=== PATIENT | male | born 1945 | race Caucasian/White ===

== ENCOUNTER → 2024-03-06 09:10 | Outpatient (REF) | payer OTHER, SELFPAY ==
[2024-03-06 10:04] LABS: % Basophils 1.2 % (0-2); % Eosinophils 7.2 % (0-6); % Immature Granulocytes 0.4 % (0-0.5); % Lymphocytes 28.3 % (20.5-51.1); % Monocytes 10.9 % (1.7-9.3); Absolute Basophils 0.1 10^3/uL (0-0.2); Absolute Eosinophils 0.4 10^3/uL (0-0.7); Absolute Lymphocytes 1.5 10^3/uL (1.2-3.4); Absolute Monocytes 0.6 10^3/uL (0.1-0.6); Absolute Neutrophils 2.7 10^3/uL (1.4-6.5); Hematocrit 36.8 % (39.0-52.0); Hemoglobin 12.5 g/dL (13.0-18.0); Mean Corpuscular Hgb 31.3 pg (27.0-31.0); Mean Corpuscular Volume 92.2 fL (80.0-94.0); Mean Platelet Volume 9.2 fL (7.4-10.4); Nucleated Red Blood Cells % 0 % (-); Platelet Count 201 10^3/uL (130-400); Red Blood Cell Count 3.99 10^6/uL (4.70-6.10); Red Cell Dist. Width 12.7 % (11.5-14.5); White Blood Cell Count 5.1 10^3/uL (4.8-10.8)
[2024-03-06 10:39] LABS: Urine Albumin Negative (Neg - Trace); Urine Bilirubin Negative (Negative); Urine Character Clear (Clear); Urine Color Straw; Urine Glucose Negative (Negative); Urine Ketone Negative (Negative); Urine Leukocyte Negative (Negative); Urine Nitrite Negative (Negative); Urine Occult Blood Negative (Negative); Urine Urobilinogen Negative (Neg - 1+)
[2024-03-06 11:06] LABS: ALT (SGPT) 13 U/L (0-50); AST (SGOT) 25 U/L (17-59); Albumin 4.1 g/dl (3.5-5.0); Alkaline Phosphatase 70 U/L (38-126); Blood Urea Nitrogen 18 mg/dl (9-20); Calcium 9.6 mg/dl (8.4-10.2); Carbon Dioxide 28 mmol/L (22-30); Chloride 102 mmol/L (98-107); Glucose 95 mg/dl (70-99); HDL Cholesterol 43 mg/dl; Iron 116 ug/dl (49-181); LDL Cholesterol, Calculated 120 mg/dl; Percent Saturation 33 % (20-50); Potassium 4.5 mmol/L (3.5-5.1); Sodium 136 mmol/L (135-145); Total Cholesterol 195 mg/dl (50-199); Total Iron Binding Capacity 348 ug/dl (261-462); Total Protein 6.3 g/dl (6.3-8.2); Triglyceride 164 mg/dl (10-149); Very Low Density Lipoprotein 32 mg/dl (0-30); eGFR > 60.00
[2024-03-06 11:10] LABS: Ferritin 25.1 ng/ml (17.9-464.0)
[2024-03-07 22:37] LABS: PSA Total 0.6 ng/mL (0.0-4.0)
== END ==
LOC: REG 09:10
PROVIDERS: ATTENDING PHYSICIAN Family Medicine
DX: N40.1 Benign prostatic hyperplasia with lower urinary tract symptoms (principal); Z80.42 Family history of malignant neoplasm of prostate; R79.0 Abnormal level of blood mineral; I10 Essential (primary) hypertension; E03.9 Hypothyroidism, unspecified
CPT/HCPCS: 36415; 80053; 80061; 81003; 82728; 83540; 83550; 84153; 84154; 85025

== ENCOUNTER → 2024-04-20 09:32 | Outpatient (REF) | payer OTHER, SELFPAY | LOC: REG 09:32 | PROVIDERS: ATTENDING PHYSICIAN Psychiatry & Neurology Neurology; FAMILY PHYSICIAN Family Medicine | DX: R56.9 Unspecified convulsions (principal) | CPT/HCPCS: 36415; 80175 ==

== ENCOUNTER → 2024-05-09 | Outpatient (REF) | payer OTHER, SELFPAY | LOC: DHSLP | PROVIDERS: ATTENDING PHYSICIAN Internal Medicine Critical Care Medicine; FAMILY PHYSICIAN Family Medicine | DX: G47.33 Obstructive sleep apnea (adult) (pediatric) (principal) | CPT/HCPCS: 95806 ==

== ENCOUNTER 2024-06-07 10:53 | Emergency (ER) | payer OTHER, SELFPAY ==
[2024-06-07] VITALS (13 sets, daily range): BP systolic 71–114; BP diastolic 44–66; BMI 29.3
--- NOTE | 2024-06-07 11:50 | ED.GENMED ---
History of Present Illness
<Nancy Hahn PA-C - Last Filed: 06/07/24 16:21>
General
Chief Complaint: Chest Pain
Source: patient
Exam Limitations: none
Time Seen by Provider: 06/07/24 11:49
Nursing documentation reviewed up to this point in time: agreed with
History of Present Illness
History of Present Illness:
This is a 78-year-old male with a past medical history of asthma, COPD, hypertension, hyperlipidemia presenting emergency department today with concerns of right-sided chest pain and shortness of breath that started around 5 AM this morning.
Patient reports that he has gotten pain similar to this in the past that is gone away on its own. Patient states that he also feels pain in his shoulder. Patient states that the pain is worse with movement. Patient states that he feels worsening
pain he takes a deep breath. Patient also notes some coughing and sore throat recently as well. Patient denies any dizziness, lightheadedness, syncopal episodes. Patient states that he is no prior cardiac history, has never had an abnormal heart
rhythm or has recorded tach. Patient states he is never seen a inspector eyeglass before. Patient does not take any blood thinners. Patient denies any swelling or pain in his legs.
Past History
<Nancy Hahn PA-C - Last Filed: 06/07/24 16:21>
Past History
ED Past Medical History: Asthma and COPD
Social History
Tobacco: Former smoker
Review of Systems
<Nancy Hahn PA-C - Last Filed: 06/07/24 16:21>
Review of Systems
All Other Systems: ROS reviewed and negative except as documented in HPI and ROS
Phy Exam
<Nancy Hahn PA-C - Last Filed: 06/07/24 16:21>
Physical Exam
Physical Exam:
General: Patient is well appearing and in no acute distress; non-toxic
Skin: Warm and dry, no rashes or lesions
Head: Normocephalic, atraumatic
Eyes: Sclera non-icteric. EOMs intact.
Cardiac: Regular rate and rhythm, no murmurs
Peripheral Vascular: No lower extremity swelling or edema
Pulm: Normal respiratory effort, scattered end expiratory wheezes
Abdomen: No abdominal tenderness to palpation
Musculoskeletal: Tenderness to palpation of the right external chest wall. Shoulder pain and chest pain with passive range of motion of right shoulder.
Neuro: CN II-XII intact, no focal neurologic deficits.
Psychiatric: Appropriate mood and affect.
Scores
<Nancy Hahn PA-C - Last Filed: 06/07/24 16:21>
Heart Score for Chest Pain Patients
STEMI patient?: No
History: Slightly or Non-Suspicious
ECG: Normal
Age: >/= 65 years
Risk Factors: 1 or 2 Risk Factors
Troponin: </= Normal Limit
Heart Score for Chest Pain Patients: 3
Heart Score Risk: 2.5% MACE over next 6 weeks
PE Wells Score
Symptoms of DVT: No
No alternative diagnosis better explains the illness: No
Tachycardia with pulse > 100: No
Immobilization (>=3 days) or surgery within previous 4 weeks: No
Prior history of DVT or pulmonary embolism: No
Presence of hemoptysis: No
Presence of malignancy: No
Pulmonary Embolism Risk Score: 0
Probability of PE: Pt is low risk
<Tayo Medel DO - Last Filed: 06/07/24 15:31>
PE Wells Score
Pulmonary Embolism Risk Score: 0
Probability of PE: Pt is low risk
Course
<MARYAN Santana Last Filed: 06/07/24 16:21>
Orders/Labs/Results
Orders:
Orders
06/07/24 10:54
EKG [Electrocardiogram (*1)] Urgent
Reason for Study: Chest Pain
06/07/24 10:55
EKG- Treatment ONCE
06/07/24 11:52
IV Insert/Care/Rem.- Treatment PRN
06/07/24 12:03
Comprehensive Metabolic Panel Urgent
CR Chest - 2 Views Urgent
Comment:
Reason For Exam: right sided chest pain, shortness of breath
06/07/24 12:04
Complete Blood Count/With Diff Urgent
Troponin I Urgent
06/07/24 13:17
EKG- Treatment ONCE
06/07/24 13:40
Acetaminophen [Tylenol] 1,000 mg PO NOW STA
Ipratropium/Albuterol Sulfate [Duoneb] 3 ml INH R NOW STA
06/07/24 14:00
Aspirin 325 mg PO NOW STA
06/07/24 14:50
Electrocardiogram (*1) Urgent
Reason for Study: Chest Pain
06/07/24 15:27
Troponin I Urgent
Abnormal Lab Results
06/07/24 06/07/24
12:03 12:04
RBC 3.99 L 10^6/uL
(4.70-6.10)
Hgb 12.4 L g/dL
(13.0-18.0)
Hct 36.6 L %
(39.0-52.0)
MCH 31.1 H pg
(27.0-31.0)
Absolute Monos (auto) 0.9 H 10^3/uL
(0.1-0.6)
Lymphocytes % 14.7 L %
(20.5-51.1)
Monocytes % 10.4 H %
(1.7-9.3)
BUN 28 H mg/dl
(9-20)
Total Protein 6.2 L g/dl
(6.3-8.2)
06/07/24 12:04
06/07/24 12:03
Vital Signs
Initial and Last Documented VS:
Initial Vital Signs
Temp Pulse BP Pulse Ox
97.6 F 74 103/58 95
06/07/24 11:02 06/07/24 11:02 06/07/24 11:02 06/07/24 11:02
Last Documented Vital Signs
Temp Pulse Resp BP Pulse Ox
97.6 F 82 23 114/66 93
06/07/24 11:02 06/07/24 15:00 06/07/24 15:00 06/07/24 14:30 06/07/24 14:01
<Tayo Medel, DO - Last Filed: 06/07/24 15:31>
Orders/Labs/Results
Orders:
Orders
06/07/24 10:54
EKG [Electrocardiogram (*1)] Urgent
Reason for Study: Chest Pain
06/07/24 10:55
EKG- Treatment ONCE
06/07/24 11:52
IV Insert/Care/Rem.- Treatment PRN
06/07/24 12:03
Comprehensive Metabolic Panel Urgent
CR Chest - 2 Views Urgent
Comment:
Reason For Exam: right sided chest pain, shortness of breath
06/07/24 12:04
Complete Blood Count/With Diff Urgent
Troponin I Urgent
06/07/24 13:17
EKG- Treatment ONCE
06/07/24 13:40
Acetaminophen [Tylenol] 1,000 mg PO NOW STA
Ipratropium/Albuterol Sulfate [Duoneb] 3 ml INH R NOW STA
06/07/24 14:00
Aspirin 325 mg PO NOW STA
06/07/24 14:50
Electrocardiogram (*1) Urgent
Reason for Study: Chest Pain
06/07/24 15:27
Troponin I Urgent
Abnormal Lab Results
06/07/24 06/07/24
12:03 12:04
RBC 3.99 L 10^6/uL
(4.70-6.10)
Hgb 12.4 L g/dL
(13.0-18.0)
Hct 36.6 L %
(39.0-52.0)
MCH 31.1 H pg
(27.0-31.0)
Absolute Monos (auto) 0.9 H 10^3/uL
(0.1-0.6)
Lymphocytes % 14.7 L %
(20.5-51.1)
Monocytes % 10.4 H %
(1.7-9.3)
BUN 28 H mg/dl
(9-20)
Total Protein 6.2 L g/dl
(6.3-8.2)
06/07/24 12:04
06/07/24 12:03
Vital Signs
Initial and Last Documented VS:
Initial Vital Signs
Temp Pulse BP Pulse Ox
97.6 F 74 103/58 95
06/07/24 11:02 06/07/24 11:02 06/07/24 11:02 06/07/24 11:02
Last Documented Vital Signs
Temp Pulse Resp BP Pulse Ox
97.6 F 82 23 114/66 93
06/07/24 11:02 06/07/24 15:00 06/07/24 15:00 06/07/24 14:30 06/07/24 14:01
Melonielt;Nancy Hahn PA-C - Last Filed: 06/07/24 16:21>
MDM/Problems Addressed
Differential Diagnosis Includes:
ddx include emphysema exacerbation, upper respiratory tract infection, musculoskeletal strain/sprain, pneumothorax, ACS
MDM/Problems Addressed:
Chest pain, SOB:
This is a 78-year-old male with a past medical history of asthma, COPD, hypertension, hyperlipidemia presenting emergency department today with concerns of right-sided chest pain and shortness of breath that started around 5 AM this morning.
Patient reports that he has gotten pain similar to this in the past that is gone away on its own. Patient states that he also feels pain in his shoulder. Patient states that the pain is worse with movement. Patient also notes some coughing and
sore throat as well. Patient is well appearing. Has some scattered wheezing on exam. CXR is negative for any pneumonia, any acute cardiopulmonary abnormality. CBC and CMP unremarkable. Patient was giving duoneb, aspirin, tylenol with minimal
improvement in his symptoms. Repeat troponin initiated which remained undetectable. Few minutes after repeat troponin resulted, patient noted an improvement of his symptoms without additional intervention. Suspect musculoskeletal etiology
considering pain is much worse with movement. Patient stable for discharge to follow-up with his primary care provider.
Chronic conditions affecting care:
COPD, hypothyroidism, HTN, HLP, GERD
<Nancy Hahn PA-C - Last Filed: 06/07/24 16:21>
*Pulse Oximetry
Patient hypoxic: no
*Critical Care Note
Total Time (30-74mins, 75-104mins- exclusive of procedures): Not Applicable
Data Reviewed
Review of Other/Old Records Reveals: Records (reviewed ER physician documentation 11/15/23)
Source: patient and records
<Nancy Hahn PA-C - Last Filed: 06/07/24 16:21>
Update Note
Update Note:
4:15 pm: Updated patient on Troponin. Patient states that he now does feel better without additional intervention
ED Attending Note
<Nancy Hahn PA-C - Last Filed: 06/07/24 16:21>
-
Portions of this chart may have been created with voice recognition software.� Occasional wrong word or��sound alike� substitutions may have occurred due to the inherent limitations of voice recognition software.
<Tayo Medel, DO - Last Filed: 06/07/24 15:31>
ED Attending Note
Patient seen and examined by attending physician: Yes
I performed a history and physical exam of patient and discussed management with resident, I reviewed resident's note and agree with documented findings and plan of care.: Yes
ED Attending Note:
I have reviewed and agree with history and treatment plan by Nancy Hahn. My exam revealed 78-year-old male with chest wall tenderness, mild decreased breath sounds in upper lungs. Suspect COPD and chest wall pain. Doubt ACS or PE.
Discharge Plan
Departure
Patient Disposition: Home (Routine Discharge)
Date of Disposition: 06/07/24
Time of Disposition: 16:06
Patient with high blood pressure during this ER visit?: No
Condition: Good
Discharge Problem:
Right shoulder pain, Chest pain
Instructions: Shoulder Pain ED, Chest Pain
Prescriptions:
No Action
multivitamin [Multi-Day] 1 EACH tablet
1 ea PO DAILY
ascorbic acid (vitamin C) [Vitamin C] 1,000 MG tablet
1,000 mg PO DAILY
aspirin 325 MG tablet
325 mg PO DAILY
sertraline 100 MG tablet
150 mg PO DAILY
hydrocodone-acetaminophen 1 EACH tablet
1 ea PO TID
levothyroxine 25 MCG tablet
25 mcg PO DAILY
temazepam 15 MG capsule
15 mg PO HS PRN (Reason: sleep)
fluticasone propion-salmeterol [Advair Diskus] 1 DISK blister with device
1 puff inhalation DAILY
gabapentin 300 MG capsule
600 mg PO TID
albuterol sulfate 1 PUFF HFA aerosol inhaler
1 puff inhalation R Q4HPRN PRN (Reason: sob)
lamotrigine 100 MG tablet
200 mg PO HS
lamotrigine 100 MG tablet
100 mg PO DAILY
cholecalciferol (vitamin D3) [Vitamin D3] 1,000 UNIT capsule
1,000 unit PO DAILY
Vitamin E
400 units PO DAILY
lansoprazole [Prevacid] 15 MG capsule,delayed release(DR/EC)
15 mg PO DAILY
levofloxacin 500 MG tablet
500 mg PO DAILY Qty: 5 0RF
Rx Instructions:
Take for 5 days
guaifenesin [Mucus Relief ER] 600 MG tablet extended release 12hr
600 mg PO Q12 0RF
Rx Instructions:
Take for one week then stop
prednisone 10 MG tablet
10 mg PO .TAPER Qty: 20 0RF
Rx Instructions:
Take 40mg daily x2 days, 30mg daily x 2 days, 20mg daily x 2 days, 10mg daily x 2 days.
ipratropium-albuterol 3 ML solution for nebulization
3 ml inhalation Q6HPRN PRN (Reason: shortness of breath or wheeze) Qty: 30 0RF
cephalexin 500 mg capsule
500 mg PO QID 5 Days Qty: 20 0RF
Referrals:
UNKNOWN - PT DOES,NOT KNOW [Family Provider] -
Activity Restrictions/Additional Instructions:
Please return emergency department should you experience any acute worsening or symptoms, worsening shortness of breath, back pain, swelling in your legs, palpitations, weakness, fevers or chills, abdominal pain, nausea, vomiting, any signs or
symptoms concerning to you.
Please follow-up with your primary care provider in 1 week for reassessment.
Interventions
Interventions:
*Risk Screen - Suicide Last Done: 06/07/24 11:41
*General Assessment Last Done: 06/07/24 11:41
*Neglect/Abuse Screening Last Done: 06/07/24 11:41
ED- Cardiac Assessment Last Done: 06/07/24 12:43
Discharge Date and Time
Print Language: THAI
[2024-06-07 12:21] LABS: % Basophils 0.6 % (0-2); % Immature Granulocytes 0.4 % (0-0.5); % Lymphocytes 14.7 % (20.5-51.1); % Monocytes 10.4 % (1.7-9.3); % Neutrophils 67.9 % (42.2-75.2); Absolute Basophils 0.1 10^3/uL (0-0.2); Absolute Eosinophils 0.5 10^3/uL (0-0.7); Absolute Lymphocytes 1.2 10^3/uL (1.2-3.4); Absolute Monocytes 0.9 10^3/uL (0.1-0.6); Absolute Neutrophils 5.5 10^3/uL (1.4-6.5); Hematocrit 36.6 % (39.0-52.0); Hemoglobin 12.4 g/dL (13.0-18.0); Mean Corp Hgb Conc. 33.9 g/dL (33.0-37.0); Mean Corpuscular Hgb 31.1 pg (27.0-31.0); Mean Corpuscular Volume 91.7 fL (80.0-94.0); Mean Platelet Volume 9.5 fL (7.4-10.4); Nucleated Red Blood Cells % 0 % (-); Platelet Count 176 10^3/uL (130-400); Red Blood Cell Count 3.99 10^6/uL (4.70-6.10); Red Cell Dist. Width 12.3 % (11.5-14.5); White Blood Cell Count 8.2 10^3/uL (4.8-10.8)
[2024-06-07 12:33] LABS: ALT (SGPT) 12 U/L (0-50); AST (SGOT) 24 U/L (17-59); Albumin 4.1 g/dl (3.5-5.0); Alkaline Phosphatase 70 U/L (38-126); Blood Urea Nitrogen 28 mg/dl (9-20); Calcium 9.1 mg/dl (8.4-10.2); Carbon Dioxide 24 mmol/L (22-30); Chloride 104 mmol/L (98-107); Estimated Creatinine Clearance 59 ml/min; Glucose 97 mg/dl (70-99); Potassium 4.3 mmol/L (3.5-5.1); Sodium 137 mmol/L (135-145); Total Bilirubin 0.7 mg/dl (0.2-1.3); Total Protein 6.2 g/dl (6.3-8.2); eGFR > 60.00
[2024-06-07 12:44] LABS: Troponin I < 0.012 ng/ml
[2024-06-07] MEDS: TYLENOL 1000 MG PO (14:08)
[2024-06-07] MEDS: ASPIRIN 325 MG PO (14:08)
[2024-06-07] MEDS: DUONEB 3 ML INH (14:12)
[2024-06-07 16:02] LABS: Troponin I < 0.012 ng/ml
== END 2024-06-07 16:28 | disposition home or self-care (01) ==
LOC: EMR 10:53
PROVIDERS: Physician Assistant; EMERGENCY PHYSICIAN Emergency Medicine
DX: M25.511 Pain in right shoulder (principal); R07.89 Other chest pain; J44.89 Other specified chronic obstructive pulmonary disease; I10 Essential (primary) hypertension; E78.5 Hyperlipidemia, unspecified; Z87.891 Personal history of nicotine dependence; E03.9 Hypothyroidism, unspecified
CPT/HCPCS: 99285; 94640; 71046; 80053; 84484; 85025; 93005

== ENCOUNTER → 2024-07-17 09:18 | Outpatient (REF) | payer OTHER, SELFPAY ==
[2024-07-17 09:57] LABS: % Basophils 0.9 % (0-2); % Immature Granulocytes 0.2 % (0-0.5); % Lymphocytes 35.6 % (20.5-51.1); % Neutrophils 44.3 % (42.2-75.2); Absolute Basophils 0.1 10^3/uL (0-0.2); Absolute Eosinophils 0.4 10^3/uL (0-0.7); Absolute Lymphocytes 1.9 10^3/uL (1.2-3.4); Absolute Monocytes 0.6 10^3/uL (0.1-0.6); Absolute Neutrophils 2.3 10^3/uL (1.4-6.5); Hematocrit 36.7 % (39.0-52.0); Hemoglobin 12.7 g/dL (13.0-18.0); Mean Corp Hgb Conc. 34.6 g/dL (33.0-37.0); Mean Corpuscular Hgb 31.2 pg (27.0-31.0); Mean Corpuscular Volume 90.2 fL (80.0-94.0); Mean Platelet Volume 9.5 fL (7.4-10.4); Nucleated Red Blood Cells % 0 % (-); Platelet Count 176 10^3/uL (130-400); Red Blood Cell Count 4.07 10^6/uL (4.70-6.10); Red Cell Dist. Width 12.8 % (11.5-14.5); White Blood Cell Count 5.3 10^3/uL (4.8-10.8)
[2024-07-17 10:28] LABS: ALT (SGPT) 12 U/L (0-50); AST (SGOT) 29 U/L (17-59); Albumin 4.1 g/dl (3.5-5.0); Alkaline Phosphatase 68 U/L (38-126); Blood Urea Nitrogen 20 mg/dl (9-20); Calcium 9.4 mg/dl (8.4-10.2); Carbon Dioxide 25 mmol/L (22-30); Chloride 105 mmol/L (98-107); Glucose 91 mg/dl (70-99); Potassium 4.5 mmol/L (3.5-5.1); Sodium 140 mmol/L (135-145); Total Bilirubin 1.1 mg/dl (0.2-1.3); Total Protein 6.3 g/dl (6.3-8.2); eGFR > 60.00
[2024-07-20 00:21] LABS: Lamotrigine (Lamictal) 9.2 ug/mL (3.0-15.0)
== END ==
LOC: REG 09:18
PROVIDERS: ATTENDING PHYSICIAN Psychiatry & Neurology Neurology; FAMILY PHYSICIAN Family Medicine
DX: G40.309 Generalized idiopathic epilepsy and epileptic syndromes, not intractable, without status epilepticus (principal)
CPT/HCPCS: 36415; 80053; 80175; 85025

== ENCOUNTER 2024-11-02 12:07 | Inpatient (IN) | payer OTHER, SELFPAY ==
[2024-11-01] VITALS (9 sets, daily range): BP systolic 132–180; BP diastolic 70–103; BMI 30.5
--- NOTE | 2024-11-01 11:00 | ED.GENMED ---
History of Present Illness
<Nancy Hahn PA-C - Last Filed: 11/01/24 13:50>
General
Chief Complaint: Breathing Problem
Source: patient
Exam Limitations: none
Time Seen by Provider: 11/01/24 10:54
Nursing documentation reviewed up to this point in time: agreed with
History of Present Illness
History of Present Illness:
79 y/o male with pmh of charcot onur tooth, seizure disorder, asthma, COPD, HTN, CAD presents emergency department today with concerns of shortness of breath. He states that he is having shortness of breath for the past 3 days. His history is
limited because of how short of breath he is, he is significant conversational dyspnea. reports that he is also had intermittent chills as well as sputum production if he is able to move air and cough up sputum. He has had no hemoptysis. He
has no chest pain. He denies abdominal pain, nausea or vomiting. This has happened to him in the past many years ago. He does not wear oxygen at home but at one time, his primary care provider did suggest oxygen however his insurance did not
cover it. He denies any lower extremity swelling as well.
Past History
<Nancy Hahn PA-C - Last Filed: 11/01/24 13:50>
Past History
ED Past Medical History: Asthma and COPD
Social History
Tobacco: Former smoker
Review of Systems
<Nancy Hahn PA-C - Last Filed: 11/01/24 13:50>
Review of Systems
All Other Systems: ROS reviewed and negative except as documented in HPI and ROS
Phy Exam
<Nancy Hahn PA-C - Last Filed: 11/01/24 13:50>
Physical Exam
Physical Exam:
General: Patient is in moderate respiratory distress
Skin: Warm and dry, no rashes or lesions
Head: Normocephalic, atraumatic
Eyes: Sclera non-icteric. EOMs intact.
Cardiac: Regular rate and rhythm, no murmur
Peripheral Vascular: No lower extremity swelling or edema
Pulm: Tachypnea, conversational dyspnea, diffuse wheezing
Neuro: CN II-XII intact, no focal neurologic deficits.
Psychiatric: Appropriate mood and affect.
Scores
<MARYAN Santana Last Filed: 11/01/24 13:50>
Heart Failure Risk
Heart Failure Risk Score: Yes
History of Stroke or TIA: No
History of intubation for respiratory distress: No
Heart rate on ED arrival >/= 110: No
SaO2 <90% on arrival on room air: Yes
HR >/=110 during 3min walk test (or too ill to perform test): No (unable to be performed)
ECG has acute ischemic changes: No
Urea >/=12mmol/L (BUN 33.6mg/dL): No
Serum CO2>/=35mmol/L: No
Troponin I or T elevated to [place] Level (0.4mg/dL): No
NT-proBNP >/=5,000ng/L (5,000pg/ml): No
HF Risk Score: 1
Admission Status: MEDIUM RISK 5.1% Consider observation or discharge to home with homecare & f/u visit to PCP/[facility], or SNF for treatment
Sepsis
<MARYAN Santana Last Filed: 11/01/24 13:50>
Sepsis Screening
Sepsis Assessment: Sepsis Ruled Out
Sepsis Screen
Sepsis Screen: Sepsis Ruled Out
Date: 11/01/24
Time: 13:50
Course
<MARYAN Santana Last Filed: 11/01/24 13:50>
Orders/Labs/Results
Orders:
Orders
11/01/24 10:07
Electrocardiogram (*1) Urgent
Reason for Study: Chest Pain
EKG- Treatment ONCE
11/01/24 11:14
Dexamethasone Sod Phosphate [Decadron] 10 mg IV NOW STA
Ipratropium/Albuterol Sulfate [Duoneb] 3 ml INH R NOW STA
11/01/24 11:15
CR Chest - 2 Views Urgent
Comment:
Reason For Exam: shortness of breath
11/01/24 11:26
Basic Metabolic Panel Urgent
Complete Blood Count/With Diff Urgent
NT-proBNP Urgent
Troponin I Urgent
11/01/24 11:38
Ipratropium/Albuterol Sulfate [Duoneb] 3 ml INH R NOW STA
11/01/24 11:42
Ipratropium/Albuterol Sulfate [Duoneb] 3 ml INH R NOW STA
11/01/24 12:59
Admit/Transfer Patient As Directed
Co-Sign Provider:
Level of Care: Observation services
Assign to:: Telemetry
Physician / Group: renan
Diagnosis: copd exacerbation
Reason for Telemetry: Arrhythmia
Date to Stop Telemetry: 11/04/24
Time to Stop Telemetry: 11:00
Code Status As Directed
Resuscitation Status: Full Code
PRN Pain Medication Management As Directed
May give lesser potent ordered pain med per pt: Yes
preference::
Protocol:: Medication orders for pain may be administered in a
manner that supports deferring to patient preference
when the pt is:
- Requesting an ordered lesser potent pain medication.
Least to most potent pain medications are defined
as: acetaminophen < NSAID < tramadol < opioids
(morphine, oxycodone, hydromorphone).
- Requesting a lesser dose of the same medication IF
ORDERED.
- Requesting a less intrusive route of administration
if both routes are prescribed by the provider (PO <
IV).
11/01/24 13:04
COVID-19 Antigen Urgent
Source: Nasal Swab
Influenza A+B Rapid Molecular Urgent
VIRAJ Source: Nasal Swab
Specimen Description:
11/04/24 11:00
DC Protocol for Telemetry ONCE
Abnormal Lab Results
11/01/24
11:26
RBC 4.33 L 10^6/uL
(4.70-6.10)
MCHC 32.8 L g/dL
(33.0-37.0)
Abs Immat Gran (auto) 0.1 H 10^3/uL
(0-0.05)
Absolute Lymphs (auto) 1.0 L 10^3/uL
(1.2-3.4)
Absolute Monos (auto) 1.0 H 10^3/uL
(0.1-0.6)
Absolute Eos (auto) 0.9 H 10^3/uL
(0-0.7)
Lymphocytes % 10.4 L %
(20.5-51.1)
Monocytes % 10.1 H %
(1.7-9.3)
Eosinophils % 9.5 H %
(0-6)
BUN 25 H mg/dl
(9-20)
Glucose 102 H mg/dl
(70-99)
Troponin I 0.095 H* ng/ml
11/01/24 11:26
11/01/24 11:26
Vital Signs
Initial and Last Documented VS:
Initial Vital Signs
Temp Pulse Resp BP Pulse Ox
98.4 F 105 22 180/103 94
11/01/24 10:15 11/01/24 10:15 11/01/24 10:15 11/01/24 10:15 11/01/24 10:15
Last Documented Vital Signs
Temp Pulse Resp BP Pulse Ox
98.4 F 98 20 170/90 93
11/01/24 10:15 11/01/24 13:30 11/01/24 12:30 11/01/24 13:06 11/01/24 13:30
<Owen Cortes Trae, DO - Last Filed: 11/01/24 11:49>
Orders/Labs/Results
Orders:
Orders
11/01/24 10:07
Electrocardiogram (*1) Urgent
Reason for Study: Chest Pain
EKG- Treatment ONCE
11/01/24 11:14
Dexamethasone Sod Phosphate [Decadron] 10 mg IV NOW STA
Ipratropium/Albuterol Sulfate [Duoneb] 3 ml INH R NOW STA
11/01/24 11:15
CR Chest - 2 Views Urgent
Comment:
Reason For Exam: shortness of breath
11/01/24 11:26
Basic Metabolic Panel Urgent
Complete Blood Count/With Diff Urgent
NT-proBNP Urgent
Troponin I Urgent
11/01/24 11:38
Ipratropium/Albuterol Sulfate [Duoneb] 3 ml INH R NOW STA
11/01/24 11:42
Ipratropium/Albuterol Sulfate [Duoneb] 3 ml INH R NOW STA
11/01/24 12:59
Admit/Transfer Patient As Directed
Co-Sign Provider:
Level of Care: Observation services
Assign to:: Telemetry
Physician / Group: renan
Diagnosis: copd exacerbation
Reason for Telemetry: Arrhythmia
Date to Stop Telemetry: 11/04/24
Time to Stop Telemetry: 11:00
Code Status As Directed
Resuscitation Status: Full Code
PRN Pain Medication Management As Directed
May give lesser potent ordered pain med per pt: Yes
preference::
Protocol:: Medication orders for pain may be administered in a
manner that supports deferring to patient preference
when the pt is:
- Requesting an ordered lesser potent pain medication.
Least to most potent pain medications are defined
as: acetaminophen < NSAID < tramadol < opioids
(morphine, oxycodone, hydromorphone).
- Requesting a lesser dose of the same medication IF
ORDERED.
- Requesting a less intrusive route of administration
if both routes are prescribed by the provider (PO <
IV).
11/01/24 13:04
COVID-19 Antigen Urgent
Source: Nasal Swab
Influenza A+B Rapid Molecular Urgent
VIRAJ Source: Nasal Swab
Specimen Description:
11/04/24 11:00
DC Protocol for Telemetry ONCE
Abnormal Lab Results
11/01/24
11:26
RBC 4.33 L 10^6/uL
(4.70-6.10)
MCHC 32.8 L g/dL
(33.0-37.0)
Abs Immat Gran (auto) 0.1 H 10^3/uL
(0-0.05)
Absolute Lymphs (auto) 1.0 L 10^3/uL
(1.2-3.4)
Absolute Monos (auto) 1.0 H 10^3/uL
(0.1-0.6)
Absolute Eos (auto) 0.9 H 10^3/uL
(0-0.7)
Lymphocytes % 10.4 L %
(20.5-51.1)
Monocytes % 10.1 H %
(1.7-9.3)
Eosinophils % 9.5 H %
(0-6)
BUN 25 H mg/dl
(9-20)
Glucose 102 H mg/dl
(70-99)
Troponin I 0.095 H* ng/ml
11/01/24 11:26
11/01/24 11:26
Vital Signs
Initial and Last Documented VS:
Initial Vital Signs
Temp Pulse Resp BP Pulse Ox
98.4 F 105 22 180/103 94
11/01/24 10:15 11/01/24 10:15 11/01/24 10:15 11/01/24 10:15 11/01/24 10:15
Last Documented Vital Signs
Temp Pulse Resp BP Pulse Ox
98.4 F 98 20 170/90 93
11/01/24 10:15 11/01/24 13:30 11/01/24 12:30 11/01/24 13:06 11/01/24 13:30
<Nancy Hahn PA-C - Last Filed: 11/01/24 13:50>
MDM/Problems Addressed
Differential Diagnosis Includes:
see below
MDM/Problems Addressed:
NUMBER AND COMPLEXITY OF PROBLEMS ADDRESSED AT THE ENCOUNTER
� Chronic conditions affecting care: COPD, hypertension, hyperlipidemia
� Acute Exacerbation and/or Progression of Chronic Illness: COPD
� Differential Diagnosis includes: COPD exacerbation asthma exacerbation, pneumonia, bronchitis, CHF
AMOUNT AND/OR COMPLEXITY OF DATA TO BE REVIEWED AND ANALYZED
� I performed an independent evaluation of and my interpretation is:
EKG: Sinus tachycardia with no ischemic changes
X-rays: possible right sided pneumonia, pulmonary edema
Laboratory Studies: No leukocytosis, did note elevated troponin at 0.095, in light of x-ray with pulmonary edema suspect component of heart failure or demand ischemia
Other:
� Review of other/old records: Reviewed previous record from when I saw patient on 06/07/2024 for chest pain, he had unremarkable workup he is well-appearing and was sent home
� Clinical information was obtained by an independent historian: present who provided much of the history speaking due to shortness of breath
� Prescriptions/Medications Considered but not given: n/a
RISK OF COMPLICATIONS AND/OR MORBIDITY OR MORTALITY OF PATIENT MANAGEMENT
� Social determinants of health affecting care: none
� Discussion with other providers: ER attending
� Escalation of care including admission/observation vs risk of discharge considered:
79-year-old male presents emergency department today in moderate respiratory distress. He has difficulty speaking due to shortness of breath and has diffuse wheezing noted on exam. His pulse ox is 88% on room air required 2 L to maintain his
saturations, does not wear oxygen at home. Suspect COPD exacerbation. Patient was given [id number] DuoNeb's as well as Decadron. Did note improvement. X-ray demonstrates mild pulmonary edema. Will admit to the hospitalist.
<Nancy Hahn PA-C - Last Filed: 11/01/24 13:50>
*Critical Care Note
Total Time (30-74mins, 75-104mins- exclusive of procedures): Not Applicable
ED Attending Note
<Nancy Hahn PA-C - Last Filed: 11/01/24 13:50>
-
Portions of this chart may have been created with voice recognition software.� Occasional wrong word or��sound alike� substitutions may have occurred due to the inherent limitations of voice recognition software.
<Owen Larkin DO - Last Filed: 11/01/24 11:49>
ED Attending Note
Patient seen and examined by attending physician: Yes
I performed the substantive portion of visit, reviewed & personally made and approve the management plan that is documented in note by myself or WILLIAM.: Yes
ED Attending Note:
I evaluated the patient at bedside. The patient has diffuse wheeze. Increased work of breathing. Room air sats as low as 88%. He was given nebs and steroids. Planning admission to the hospital. He no longer has access to oxygen at home.
Discharge Plan
Departure
Patient Disposition: Admit
Date of Disposition: 11/01/24
Time of Disposition: 12:48
Presentation/result/management discussed w/ accepting MD/DO: Hospitalist
Condition: Fair
Discharge Problem:
Acute exacerbation of COPD with asthma
Interventions
Interventions:
*Risk Screen - Suicide Last Done: 11/01/24 10:15
*General Assessment Last Done: 11/01/24 10:15
*Neglect/Abuse Screening Last Done: 11/01/24 10:15
*ED COVID-19 Vaccine History Last Done: 11/01/24 10:15
ED- Cardiac Assessment Last Done: 11/01/24 11:34
ED- Pulmonary Assessment Last Done: 11/01/24 11:34
[2024-11-01] MEDS: DECADRON 10 MG IV (11:30)
[2024-11-01] MEDS: DUONEB 3 ML INH ×5 (11:31→19:22)
[2024-11-01 11:45] LABS: % Basophils 1.1 % (0-2); % Eosinophils 9.5 % (0-6); % Immature Granulocytes 0.5 % (0-0.5); % Lymphocytes 10.4 % (20.5-51.1); % Monocytes 10.1 % (1.7-9.3); % Neutrophils 68.4 % (42.2-75.2); Absolute Basophils 0.1 10^3/uL (0-0.2); Absolute Eosinophils 0.9 10^3/uL (0-0.7); Absolute Immature Granulocytes 0.1 10^3/uL (0-0.05); Absolute Neutrophils 6.4 10^3/uL (1.4-6.5); Hematocrit 40.6 % (39.0-52.0); Hemoglobin 13.3 g/dL (13.0-18.0); Mean Corp Hgb Conc. 32.8 g/dL (33.0-37.0); Mean Corpuscular Hgb 30.7 pg (27.0-31.0); Mean Corpuscular Volume 93.8 fL (80.0-94.0); Nucleated Red Blood Cells % 0 % (-); Platelet Count 241 10^3/uL (130-400); Red Blood Cell Count 4.33 10^6/uL (4.70-6.10); Red Cell Dist. Width 13.1 % (11.5-14.5); White Blood Cell Count 9.4 10^3/uL (4.8-10.8)
[2024-11-01 12:03] LABS: Blood Urea Nitrogen 25 mg/dl (9-20); Calcium 8.8 mg/dl (8.4-10.2); Carbon Dioxide 26 mmol/L (22-30); Chloride 104 mmol/L (98-107); Glucose 102 mg/dl (70-99); Sodium 138 mmol/L (135-145); eGFR > 60.00
[2024-11-01 12:23] LABS: NT-proBNP 238 pg/ml; Troponin I 0.095 ng/ml
--- NOTE | 2024-11-01 13:08 | HPS.HSE ---
Family Physician
-
Family Physician: Karlee Tenorio
Chief Complaint
-
shortness of breath
History of Present Illness
79-year-old male Kchmgoq-Vgndm-Umgrx syndrome, seizure disorder, asthma, COPD, hypertension, presenting with shortness of breath for the past 3 days with conversational dyspnea. He has had intermittent chills and cough with sputum production.
Denies chest pain. Denies abdominal pain or nausea or vomiting.
He denies any lower extremity edema or abdominal distention but has gained 20 pounds in the past few months. He denies any history of heart failure or CAD.
He is a former smoker. He denies alcohol use.
Medical History
Past Medical History
Past Medical History: Reports Other (Xxcizqf-Xriko-Lnzpp syndrome, seizure disorder, asthma, COPD, hypertension,)
Past Surgical History: Reports None
Social History
Tobacco: Former Smoker
Alcohol: None
Drug: None
Family History
Family History: Not pertinent
Allergies / Home Medications
Allergies reflects when Allergies were last updated in [employer].
Home Medications with original date entered in [employer]
Allergy/Medication List:
Allergies
Allergy/AdvReac Type Severity Reaction Status Date / Time
Benzodiazepines Allergy SIMVA - Verified 11/01/24 10:17
headache,blurry
vision
Penicillins Allergy Hives Verified 11/01/24 10:17
Home Medications
albuterol sulfate 90 mcg/actuation aerosol inhaler 2 puff inhalation R Q4HPRN PRN sob 09/04/16
ascorbic acid (vitamin C) 1,000 mg tablet (Vitamin C) 1,000 mg PO DAILY 09/04/16
aspirin 325 mg tablet 325 mg PO DAILY 09/04/16
cholecalciferol (vitamin D3) 25 mcg (1,000 unit) capsule (Vitamin D3) 1,000 unit PO DAILY 09/04/16
levothyroxine 25 mcg tablet 25 mcg PO DAILY 09/04/16
sertraline 100 mg tablet 100 mg PO DAILY 09/04/16
diphenhydramine HCl 25 mg tablet (Sleep Aid (diphenhydramine)) 25 mg PO HS 11/01/24
ezetimibe 10 mg tablet (Zetia) 10 mg PO QPM 11/01/24
hydrocodone 10 mg-acetaminophen 325 mg tablet 1 tab PO TID 11/01/24
lamotrigine 200 mg tablet (Lamictal) 200 mg PO BID 11/01/24
lansoprazole 15 mg capsule,delayed release 15 mg PO DAILYPRN PRN gerd 11/01/24
lisinopril 10 mg tablet 15 mg PO DAILY 11/01/24
memantine 10 mg tablet 10 mg PO BID 11/01/24
pregabalin 100 mg capsule (Lyrica) 100 mg PO TID 11/01/24
therapeutic multivitamin 1 tab PO DAILY 11/01/24
vitamin E 268 mg (400 unit) capsule 268 mg PO DAILY 11/01/24
Review of Systems
-
History Source: Patient
A 12 point ROS was completed and negative except as noted: Yes
Constitutional: Reports No Symptoms
EENT: Reports No Symptoms
Respiratory: Reports See HPI
Cardiac: Reports No Symptoms
Abdomen/GI: Reports No Symptoms
: Reports No Symptoms
Musculoskeletal: Reports No Symptoms
Skin: Reports No Symptoms
Neurological: Reports No Symptoms
Endocrine: Reports No Symptoms
Hematologic/Lymphatic: Reports No Symptoms
Psych: Reports No Symptoms
Physical Exam
Vital Signs
Vital Signs
Temp Pulse Resp BP Pulse Ox
98.4 F 89 20 149/70 93
11/01/24 10:15 11/01/24 12:45 11/01/24 12:30 11/01/24 12:00 11/01/24 12:45
Physical Exam
General: Well Developed, Well Nourished and No Apparent Distress
HEENT: NormoCephalic, Moist mucous membranes and Atraumatic
Respiratory: Clear
Cardiac: S1/S2 and Regular Rhythm; No Murmur or Rub
GI: Soft, Non Tender, Non Distended and Normal Bowel Sounds; No Organomegaly
Rectal: Deferred by Provider
Musculoskeletal: No Clubbing, No Cyanosis and No Edema
Skin: No Rash
Neuro: Nonfocal/grossly intact
Laboratory Results
-
11/01/24 11:26
11/01/24 11:26
Laboratory Results
Total Bilirubin Cancelled 11/01/24 11:26
AST Cancelled 11/01/24 11:26
ALT Cancelled 11/01/24 11:26
Alkaline Phosphatase Cancelled 11/01/24 11:26
Troponin I 0.095 ng/ml H* 11/01/24 11:26
Data Reviewed
-
Lab Data: Labs Reviewed by me
Old Records: Reviewed
Impression/Plan
-
IMPRESSION:
PLAN:
# Acute asthma/COPD exacerbation
-bilteral expiratory wheezing on exam consistent with COPD exacerbation
-Chest x-ray shows mild cardiomegaly, suggestion of mild pulmonary edema without evidence of pneumonia/pleural effusion
-Cardiac BNP 200
-Check COVID and influenza
-DuoNebs every 6 hours
-Dexamethasone 4 mg every 12
-Mucinex
-seems to be evidence of undiagnosed CHF although not overtly volume overloaded on exam
# Nonischemic myocardial injury
-Troponin 0.095
-EKG shows sinus tachycardia, incomplete left bundle branch block
-Trend troponins
Giyqqvz-Pwlud-Hkekw syndrome
-Continue pregabalin
Seizure disorder
-Continue Lamictal
Essential hypertension
-Continue lisinopril
CAD
-Continue aspirin
Dementia/depression
-Continue sertraline, memantine
Hypothyroidism
-Continue levothyroxine
GERD
-Continue lansoprazole
Hyperlipidemia
-Continue Zetia
Full code
DVT prophylaxis�heparin
Regular diet
[2024-11-01 13:34] LABS: COVID-19 Antigen Negative (Negative)
--- NOTE | 2024-11-01 15:29 | PTCARENOTE ---
pt presents from ED via stretcher. pt is AAO*, Vss, 2L o2. pt denies any pain. pt oriented to the room. call williamson within the reach. plan of care ongoing.
[2024-11-01] MEDS: LYRICA 100 MG PO ×2 (17:27→22:40)
[2024-11-01] MEDS: ZETIA 10 MG PO (17:27)
[2024-11-01 17:58] LABS: Troponin I 0.938 ng/ml
[2024-11-01] MEDS: NAMENDA 10 MG PO (20:13)
[2024-11-01] MEDS: DECADRON 4 MG IV (20:13)
[2024-11-01] MEDS: HEPARIN 5000 UNITS SC (20:13)
[2024-11-01] MEDS: MUCINEX 600 MG PO (20:13)
[2024-11-01] MEDS: LAMICTAL 200 MG PO (22:39)
[2024-11-01] MEDS: BENADRYL 25 MG PO (22:40)
[2024-11-01] MEDS: NORCO 7.5/325 1 TABLET PO (23:15)
[2024-11-02] VITALS (14 sets, daily range): BP systolic 102–142; BP diastolic 69–105
[2024-11-02 06:38] LABS: Blood Urea Nitrogen 19 mg/dl (9-20); Calcium 9.8 mg/dl (8.4-10.2); Carbon Dioxide 22 mmol/L (22-30); Chloride 105 mmol/L (98-107); Estimated Creatinine Clearance 95 ml/min; Glucose 131 mg/dl (70-99); Potassium 5.3 mmol/L (3.5-5.1); Sodium 139 mmol/L (135-145); eGFR > 60.00
[2024-11-02 06:43] LABS: % Basophils 0.2 % (0-2); % Immature Granulocytes 0.5 % (0-0.5); % Lymphocytes 8.9 % (20.5-51.1); % Monocytes 7.8 % (1.7-9.3); % Neutrophils 82.6 % (42.2-75.2); Absolute Lymphocytes 0.8 10^3/uL (1.2-3.4); Absolute Monocytes 0.7 10^3/uL (0.1-0.6); Absolute Neutrophils 7.1 10^3/uL (1.4-6.5); Mean Corp Hgb Conc. 33.3 g/dL (33.0-37.0); Mean Corpuscular Hgb 30.5 pg (27.0-31.0); Mean Corpuscular Volume 91.5 fL (80.0-94.0); Mean Platelet Volume 9.1 fL (7.4-10.4); Nucleated Red Blood Cells % 0 % (-); Platelet Count 291 10^3/uL (130-400); Red Blood Cell Count 4.59 10^6/uL (4.70-6.10); White Blood Cell Count 8.6 10^3/uL (4.8-10.8)
[2024-11-02] MEDS: DUONEB 3 ML INH ×3 (07:28→19:28)
[2024-11-02] MEDS: VITAMIN C 1000 MG PO (08:19)
[2024-11-02] MEDS: LYRICA 100 MG PO ×2 (08:20→22:33)
[2024-11-02] MEDS: DECADRON 4 MG IV ×2 (08:20→20:31)
[2024-11-02] MEDS: MUCINEX 600 MG PO ×2 (08:20→20:31)
[2024-11-02] MEDS: VITAMIN D3 (cholecalciferol) 25 MCG PO (08:20)
[2024-11-02] MEDS: VITAMIN E 400 UNITS PO (08:20)
[2024-11-02] MEDS: ASPIRIN 325 MG PO (08:20)
[2024-11-02] MEDS: ZOLOFT 100 MG PO (08:20)
[2024-11-02] MEDS: LAMICTAL 200 MG PO ×2 (08:20→20:31)
[2024-11-02] MEDS: THERAGRAN 1 TABLET PO (08:20)
[2024-11-02] MEDS: SYNTHROID 25 MCG PO (08:20)
[2024-11-02] MEDS: NAMENDA 10 MG PO ×2 (08:20→20:30)
[2024-11-02] MEDS: HEPARIN 5000 UNITS SC (08:20)
[2024-11-02] MEDS: ZESTRIL 15 MG PO (08:21)
[2024-11-02] MEDS: NORCO 7.5/325 1 TABLET PO ×2 (08:32→23:58)
--- NOTE | 2024-11-02 11:54 | W.PN.HOSP.TC ---
Today's Communication/Plan
-
Cardio and Pulm consults
continue steroids
Assessment / Plan
Assessment / Plan
# Acute asthma/COPD exacerbation
Pt goes to Pulm as outpt
-bilteral expiratory wheezing on exam consistent with COPD exacerbation
-Chest x-ray shows mild cardiomegaly, suggestion of mild pulmonary edema without evidence of pneumonia/pleural effusion
-Cardiac BNP 200
-Check COVID and influenza
-DuoNebs every 6 hours
-Dexamethasone 4 mg every 12
-Mucinex
-seems to be evidence of undiagnosed CHF although not overtly volume overloaded on exam
Has not seen cardio in past, but goes to [facility] and requesting her group
#Cigs
was a 2ppd for 20 yrs, quitting 25 yrs ago
# Nonischemic myocardial injury
-Troponin 0.095-->0.938-->1.65-->1.53
-EKG shows sinus tachycardia, incomplete left bundle branch block
-Trend troponins
Mhwkqiy-Ifmqs-Vuewp syndrome
-Continue pregabalin
Seizure disorder
-Continue Lamictal
Essential hypertension
-Continue lisinopril
CAD
-Continue aspirin
Dementia/depression
-Continue sertraline, memantine
Hypothyroidism
-Continue levothyroxine
GERD
-Continue lansoprazole
Hyperlipidemia
-Continue Zetia
Call from Dr. Brown
pt to be changed to full admit
Full code
DVT prophylaxis�heparin
Regular diet
Anticipated Discharge: > 48 hours
Subjective/Interval History
-
Date of Service: November 02, 2024
No chest pain, sob better today
Objective Data
-
Labs:
Laboratory Results
11/02/24 11/02/24
05:23 05:28
WBC 8.6
Hgb 14.0
Hct 42.0
Plt Count 291 D
Sodium 139
Potassium 5.3 H
Chloride 105
Carbon Dioxide 22
BUN 19
Creatinine 0.8
Glucose 131 H
Calcium 9.8
Vital Signs:
Vital Signs
Temp Pulse Resp BP Pulse Ox
97.6 F 104 18 137/84 95
11/02/24 11:30 11/02/24 11:30 11/02/24 11:30 11/02/24 11:30 11/02/24 11:30
I&O
11/01/24 11/02/24 11/03/24
06:59 06:59 06:59
Intake Total 240 / 240
Balance 240 / 240
Review of Systems
-
History Source: Patient and Family ( at bedside)
Constitutional: Denies Fever
Respiratory: Reports Cough and Trouble Breathing
Cardiac: Denies Chest Pain
Genitourinary: Reports No Symptoms
Physical Exam
-
General: Well Developed, Well Nourished and No Apparent Distress
HEENT: Normocephalic, Atraumatic and Moist Mucous Membranes
Respiratory: Wheezes (mid-end expiraotry high freq wheeze)
Cardiac: Regular Rhythm, S1/S2 and Tachycardic
GI: Soft, Nontender and Nondistended
Musculoskeletal: No Clubbing, No Cyanosis and No Edema
Neuro: Awake and Alert
--- NOTE | 2024-11-02 13:18 | CON.PUL ---
Consultation
Consultation Request
Date/Time Consultation Requested: 11/02/24
Date/Time Consultation Performed: 11/02/24
Performing Provider: Kasia
Reason for Consultation: SOB
Medical History
-
History of Present Illness:
Patient is a 79-year-old male with previous history of Dyqefjd-Nvjbm-Iazhd syndrome, seizure disorder, COPD, hypertension presenting with shortness of breath with past 3 days, associated with intermittent chills, cough with sputum production. He
denies any lower extremity edema but has gained 20 pounds in the past month. He was last seen at our office in May with PFTs that were normal. He was taken off his controller medication, Symbicort and placed on albuterol as needed. He is not
sure what triggered his complaints prior to admission. Chest x-ray demonstrating no acute process, borderline cardiomegaly with some trace edema, proBNP 238. Of note troponin elevation seen from 0.095->1.65, trending upward.
Past Medical History
Past Medical History: Other (see list below)
Social History
Tobacco: Former Smoker
Alcohol: None
Drug: None
Family History
Family History: Reviewed & Not Pertinent
Allergies / Home Medications
Allergies
Allergy/AdvReac Type Severity Reaction Status Date / Time
Benzodiazepines Allergy SIMVA - Verified 11/01/24 10:17
headache,blurry
vision
Penicillins Allergy Hives Verified 11/01/24 10:17
Home Medications
�Medication �Instructions �Recorded �Confirmed �Last Taken �Type
albuterol sulfate 90 mcg/actuation 2 puff inhalation R Q4HPRN PRN sob 09/04/16 11/01/24 11/01/24 History
aerosol inhaler
ascorbic acid (vitamin C) 1,000 mg 1,000 mg PO DAILY 09/04/16 11/01/24 Unknown History
tablet (Vitamin C)
aspirin 325 mg tablet 325 mg PO DAILY 09/04/16 11/01/24 10/31/24 History
cholecalciferol (vitamin D3) 25 1,000 unit PO DAILY 09/04/16 11/01/24 10/31/24 History
mcg (1,000 unit) capsule (Vitamin
D3)
levothyroxine 25 mcg tablet 25 mcg PO DAILY 09/04/16 11/01/24 10/31/24 History
sertraline 100 mg tablet 100 mg PO DAILY 09/04/16 11/01/24 10/31/24 History
diphenhydramine HCl 25 mg tablet 25 mg PO HS 11/01/24 11/01/24 10/31/24 History
(Sleep Aid (diphenhydramine))
ezetimibe 10 mg tablet (Zetia) 10 mg PO QPM 11/01/24 11/01/24 10/31/24 History
hydrocodone 10 mg-acetaminophen 1 tab PO TID 11/01/24 11/01/24 11/01/24 History
325 mg tablet
lamotrigine 200 mg tablet 200 mg PO BID 11/01/24 11/01/24 10/31/24 History
(Lamictal)
lansoprazole 15 mg capsule,delayed 15 mg PO DAILYPRN PRN gerd 11/01/24 11/01/24 10/30/24 History
release
lisinopril 10 mg tablet 15 mg PO DAILY 11/01/24 11/01/24 10/31/24 History
memantine 10 mg tablet 10 mg PO BID 11/01/24 11/01/24 10/31/24 History
pregabalin 100 mg capsule (Lyrica) 100 mg PO TID 11/01/24 11/01/24 10/31/24 History
therapeutic multivitamin 1 tab PO DAILY 11/01/24 11/01/24 10/31/24 History
vitamin E 268 mg (400 unit) capsule 268 mg PO DAILY 11/01/24 11/01/24 10/31/24 History
Review of Systems
-
History Source: Patient
All other systems: Negative unless noted
Vitals / Labs / Diagnostic Testing
Vital Signs
Temp Pulse Resp BP Pulse Ox
97.6 F 104 18 137/84 95
11/02/24 11:30 11/02/24 11:30 11/02/24 11:30 11/02/24 11:30 11/02/24 11:30
Lab Data
11/02/24 05:23
11/02/24 05:28
Microbiology
11/01/24 13:04 Nasal Swab Influenza Types A & B (TATYANA) - Final
Negative for Influenza A & B, NAAT
Negative results must be combined with clinical observations
and patient history.
Nucleic Acid Amplification test (NAAT)performed on the
[employer] platform.
Diagnostic Testing:
Physical Exam
-
HEENT: Normocephalic, Anicteric, Moist Mucous Membranes and Other (poor dentition)
Cardiovascular: S1/S2 and Regular Rhythm
Respiratory: Clear and Non-Labored Respirations
GI: Soft, Non Distended and Non Tender
Neurology: Awake, Alert, Oriented and No Motor Deficits
Skin: Warm, Dry and Good Color
General: Comfortable and Other (NAD)
Assessment
-
Patient is a 79-year-old male with previous history of Uxfylmr-Oyyba-Uejnz syndrome, seizure disorder, COPD, hypertension presenting with shortness of breath with past 3 days, associated with intermittent chills, cough with sputum production. He
denies any lower extremity edema but has gained 20 pounds in the past month. He was last seen at our office in May with PFTs that were normal. He was taken off his controller medication, Symbicort and placed on albuterol as needed. He is not
sure what triggered his complaints prior to admission. Chest x-ray demonstrating no acute process, borderline cardiomegaly with some trace edema, proBNP 238. Of note troponin elevation seen from 0.095->1.65, trending upward. We are consulted for
eval.
Acute onset shortness of breath
Elevated troponins with EKG changes, possible ACS
Abnormal chest x-ray
Weight gain, 20 pounds
Cough with sputum production
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
COPD, last seen at [facility] 05/2024
Most recent pulmonary function test was normal, no evidence of obstruction.
Mildly reduced diffusing capacity noted. Continued off maintenance inhaler therapy/albuterol PRN
Mild ELBA-PSG w/ AHI 12.3 events/hour, O2 opal 82%
Benign prostatic hyperplasia
Avomusw-Zgyra-Equba disease
Essential hypertension
History of basal cell carcinoma
Alzheimer's dementia
History of squamous cell carcinoma of skin
Major depressive disorder
Macrocytic anemia
History of colon polyps
Other chronic pain
GERD without esophagitis
Gait disturbance
Epilepsy
Plan
Hypoxemia was not noted on arrival, but he is placed on low o2
Can wean off as tolerated
Was not known to have O2 needs at home
Home O2 evaluation
Prior history of lung disease is noted including COPD history, but last PFT in office in May was normal/no obstruction
He was de-escalated off of his inhalers at that time, using albuterol as needed
Could be exacerbation of COPD, but this is less likely.
He is placed on IV steroids, I would quickly wean this off -- he is not currently wheezing
Suspect patient has possible ACS versus PE
He was placed on IV heparin per cardiology, I will order CTA to rule it out
If negative, would stop heparin drip if only for PE protocol
Cardiology consulted for elevated troponins, there were some T wave inversions on EKG
If patient proceeds to heart catheterization, would also include right heart
Prior ECHO results are reviewed indicating normal function in 2016
Repeat echo pending
Smoking history noted, quit 25 years ago
He would not be at risk for primary lung cancer, no indication for screening
Recently diagnosed with mild obstructive sleep apnea
Can start CPAP if patient would like to try it while inpatient
Otherwise, can wait for outpatient set up
Will need outpatient pulmonary evaluation in our office for PFTs and 6MWT
Already seen by [facility], can schedule sooner visit post FU
Reviewed with patient
We will follow
Diagnostic Data
CXR 11/01/24- 1. Mild cardiomegaly. Suggestion of mild pulmonary edema. 2. No evidence of lobar pneumonia or significant pleural effusion.
06/07/24- Lungs/Pleura: There are low lung volumes with bronchovascular crowding and left basilar atelectasis. No consolidation, pleural effusion, or pneumothorax.
Low lung volumes. No active pulmonary process.
CT Chest 07/06/15-Stable tiny left lower lobe pulmonary nodule over a period of 14 months. No new lung findings. Stable probable small hepatic cyst.
Fairly extensive coronary artery calcification consistent with atherosclerosis. Please correlate clinically.
ECHO 09/06/16- Normal biventricular size and systolic function without regional wall motion abnormality. Mild mitral regurgitation. No prior study available for comparison.
Reports and relevant images were personally reviewed.
Total time spent on this consultation __76__ minutes which includes review of history, physical exam, medications, laboratory data, personal review of imaging, extensive review of outpatient records, discussion with care team and respiratory therapy.
--- NOTE | 2024-11-02 13:26 | CON.CAR ---
Addendum entered and electronically signed by Christi Rob MD 11/02/24 16:43:
Patient is a pleasant 79-year-old gent with the patient medical history of CMT, seizure disorder, COPD, hypertension and dyslipidemia who presented for 3 days of shortness of breath. He states he does not move around much because of his CMT and
just had recently had a foot procedure, but noticed he began to feel short of breath particularly when lying flat. He has no chest pain-pleuritic or at rest. He has never had chest pain. On exam he does have an an end expiratory wheeze at the
base, regular rate and rhythm normal S1-S2, he has no edema in the legs and unable to do a Homans test due to fixed ankles first TMT. EKG is concerning for sinus tachycardia with anterior T wave inversions that are new from admission.Labs are
concerning for rising troponin initially 0.095 on arrival now up to 1.65. Overall picture was initially concerning for PE versus ACS given shortness of breath and rising troponin. Given the EKG changes, I asked echo to come up to the bedside. On
review of stat echo at bedside he had normal RV size and function with LV apical hypokinesis, septal hypokinesis all of which were more concerning to me and consistent with ACS. Will arrange for urgent transfer to cardiac catheterization
laboratory. Will start heparin drip.He is already taking a daily aspirin. Will need OMT once catheterization is complete. Will need to complete his echo to ensure no LV apical thrombus. Will check lipid panel, and add high-dose statin.
Will follow.
Case discussed directly with Dr. Eastman and Dr. Jang.
Original Note:
Consultation
Consultation Request
Date/Time Consultation Requested: 11/02/24 1212
Date/Time Consultation Performed: 11/02/24 1330
Requesting Provider: Dr. Eastman
Performing Provider: Aleah DURAN for Dr. Rob
Reason for Consultation: abnormal troponin
Medical History
-
Chief Complaint: SOB
History of Present Illness:
79 y/o male with Wumvujr-Opnzn-Zglkt disease, seizure disorder, COPD/asthma, hypertension, and dyslipidemia who is here for evaluation of SOB that started on Tuesday. He noted it when he woke up. He dealt with it for 3 days until coming to the
hospital. There is an associated productive cough (brown). It is worse with exertion and laying on back, but not on side. It would wake him from sleep. Denies any significant weight loss or gain. Denies any CP. He is feeling improved on O2 by NC and
s/p steroids and breathing tx. We are consulted due to abnormal troponin (1.7). He is in distress at the time of my assessment.
Past Medical History
Past Medical History: COPD, HTN, Hypercholesterolemia, Seizures and Other (as above)
Social History
Tobacco: Former Smoker (quit 30 years ago)
Family History
Family History: Reviewed & Not Pertinent
Allergies / Home Medications
Allergy/AdvReac Type Severity Reaction Status Date / Time
Benzodiazepines Allergy SIMVA - Verified 11/01/24 10:17
headache,blurry
vision
Penicillins Allergy Hives Verified 11/01/24 10:17
�Medication �Instructions �Recorded �Confirmed �Type
albuterol sulfate 90 mcg/actuation 2 puff inhalation R Q4HPRN PRN sob 09/04/16 11/01/24 History
aerosol inhaler
ascorbic acid (vitamin C) 1,000 mg 1,000 mg PO DAILY 09/04/16 11/01/24 History
tablet (Vitamin C)
aspirin 325 mg tablet 325 mg PO DAILY 09/04/16 11/01/24 History
cholecalciferol (vitamin D3) 25 1,000 unit PO DAILY 09/04/16 11/01/24 History
mcg (1,000 unit) capsule (Vitamin
D3)
levothyroxine 25 mcg tablet 25 mcg PO DAILY 09/04/16 11/01/24 History
sertraline 100 mg tablet 100 mg PO DAILY 09/04/16 11/01/24 History
diphenhydramine HCl 25 mg tablet 25 mg PO HS 11/01/24 11/01/24 History
(Sleep Aid (diphenhydramine))
ezetimibe 10 mg tablet (Zetia) 10 mg PO QPM 11/01/24 11/01/24 History
hydrocodone 10 mg-acetaminophen 1 tab PO TID 11/01/24 11/01/24 History
325 mg tablet
lamotrigine 200 mg tablet 200 mg PO BID 11/01/24 11/01/24 History
(Lamictal)
lansoprazole 15 mg capsule,delayed 15 mg PO DAILYPRN PRN gerd 11/01/24 11/01/24 History
release
lisinopril 10 mg tablet 15 mg PO DAILY 11/01/24 11/01/24 History
memantine 10 mg tablet 10 mg PO BID 11/01/24 11/01/24 History
pregabalin 100 mg capsule (Lyrica) 100 mg PO TID 11/01/24 11/01/24 History
therapeutic multivitamin 1 tab PO DAILY 11/01/24 11/01/24 History
vitamin E 268 mg (400 unit) capsule 268 mg PO DAILY 11/01/24 11/01/24 History
Review of Systems
-
History Source: Patient
All other systems: Negative unless noted
Respiratory: Cough and Trouble Breathing
Physical Exam
Vital Signs
Temp Pulse Resp BP Pulse Ox
97.6 F 104 18 137/84 95
11/02/24 11:30 11/02/24 11:30 11/02/24 11:30 11/02/24 11:30 11/02/24 11:30
Lab Results
11/02/24 05:23
11/02/24 05:28
Troponin I 1.650 ng/ml H* 11/02/24 11:10
Pzj-J-Qzjqrnamrbk Pept 238 pg/ml 11/01/24 11:26
Physical Exam
General: Well Developed, Well Nourished and No Apparent Distress
HEENT: Normocephalic and Anicteric
Respiratory: Non Labored Respirations and Other (diminished t/o- no crackles, wheezes, rhonchi)
Cardiac: Regular Rhythm
Musculoskeletal: No Edema
Skin: Warm and Dry
Neuro: AO x 3
Psych: Calm
Impression / Plan
-
SOB: improved, remains on O2
-primary team treating for COPD exacerbation and pulmonary is consulted
-he is in no distress, but is tachycardic and EKG and trop abnormal. Of note, I just repeated an EKG and there are deep T wave inversions anterolaterally, which is a change from previous. No CP. Check echo now. Consider PE as well versus ACS (both
of these diagnoses are threat to life). I am starting heparin at PE dosing while this is sorted- this requires intensive monitoring for toxicity. He has already received full dose aspirin. Otherwise, he does not appear volume overloaded to my
assessment.
Abnormal troponin:
-denies CP, but came in with SOB
-etiology is unclear as noted. We are starting heparin and checking echo.
-so far as high as 1.7. Continue to trend to peak. Check echo- echo techs aware and will do next.
HTN:
-stable overall, monitor
HLD:
-on zetia
-check lipids
-w/u as above
Data Reviewed
-
EKG: Tracing Personally Visualized and interpreted ([facility])
Radiology: Report Reviewed by me (CXR: Mild cardiomegaly. Suggestion of mild pulmonary edema. 2. No evidence of lobar pneumonia or significant pleural effusion.)
Medical Tests (Nuc Med, Echo etc): Report Reviewed by me
Labs: Labs Reviewed by me
--- NOTE | 2024-11-02 14:40 | CM ---
CM met with Momo and his at bedside. They live in a 1 level modular home with 1 entry step. We spoke about their cat who gives them lots of enjoyment.
Momo is (I) amb and adls. He is currently on O2 which he had been on in the past, but it was no longer needed. They advised that if he needs oxygen again, they do not want to use [employer] due to billing issues that they experienced and the
company's unwillingness to remove the oxygen for several months.
Pharmacy: [facility] in [place] on [facility].
PCP: Karlee Tenorio
Plan: Discharge to home. Watch for O2 needs.
[2024-11-02] MEDS: DUONEB INH (15:38)
--- NOTE | 2024-11-02 15:47 | PTCARENOTE ---
Unable to draw initial PTT lab for this pt, prior to Hep gtt initiation. supervisor dental laboratory called to take pt down for Cardiac Cath as per Dr. Rob. aware.
[2024-11-02 16:40] LABS: ACT-LR - POC 269 Seconds (116-155)
[2024-11-02 16:49] LABS: ALT (SGPT) 22 U/L (0-50); AST (SGOT) 52 U/L (17-59); Albumin 4.5 g/dl (3.5-5.0); Alkaline Phosphatase 79 U/L (38-126); Direct Bilirubin 0.4 mg/dl (0.0-0.4); Magnesium 2.3 mg/dl (1.6-2.3); Total Bilirubin 1.2 mg/dl (0.2-1.3); Total Protein 7.1 g/dl (6.3-8.2)
--- NOTE | 2024-11-02 17:58 | CARDSERVLU ---
Echocardiogram with [facility] completed after protocol screening completed. Allergies verified.
Patent IV site: ___lac__
IV site flushed with 0.9% NaCl pre and post administration.
Diluted bolus method utilized to enhance visualization of ventricular russell.
Total volume given: __4__ mL
Patient tolerated all procedures well without complications.
[2024-11-02] MEDS: ZETIA 10 MG PO (18:39)
[2024-11-02] MEDS: LOPRESSOR 12.5 MG PO (18:39)
[2024-11-02] MEDS: CRESTOR 20 MG PO (18:39)
--- NOTE | 2024-11-02 19:09 | ITS.CL.PN ---
Advertising Display Rotator - Procedure Note
Procedure
Procedure Note:
CARDIAC CATHETERIZATION REPORT
Date of Procedure: 11/02/24
Referring: Dr. Christi Rob MD
INDICATION: NSTEMI
PROCEDURE:
1. Left heart catheterization
2. Coronary angiography
3. iFR LAD
4. iFR diagonal
ACCESS:
6 Sinhala right radial artery (closed with TR band)
CATHETERS:
1. 6 Sinhala JR4
2. 6 Sinhala JL3.5
3. 6 Sinhala XB3.5 guide
HEMODYNAMIC DATA
LV 111/20 (EDP 29) mmHg
AO 119/82 (mean 98) mmHg
CORONARY ANGIOGRAPHY
LM: large, normal
LAD: large vessel giving rise to a large early D1 and several smaller diagonal branches. There is diffuse moderate disease in the proximal to mid-vessel. The proximal diagonal has a possible proximal hazy plaque. There is TIMI3 flow throughout.
LCx: large vessel giving rise to a large OM1, large OM2 and small LPL. There is severe disease in the distal LCx before the LPL and otherwise mild disease.
RCA: large vessel giving rise to a moderate caliber RPDA and small RPL system, and providing R-L collaterals to what is likely a small distal LPL branch. There is a 60% stenosis in the distal RCA with NATALIE 3 flow distally and mild disease otherwise.
iFR of LAD - After system flushing and zeroing in the LM, the Omni wire was advanced to the mid diagonal, re-flushed, and iFR recorded 3 times (0.86, 0.87, 0.87). Pullback was performed and iFR appropriately normalized to 1.0 with a diffuse pattern
on pullback.
iFR of diagonal - After system flushing and zeroing in the LM, the Omni wire was advanced to the mid diagonal, re-flushed, and iFR recorded 3 times (0.97, 0.97, 0.97). Pullback was performed and iFR appropriately normalized to 1.0.
RADIATION:
Radiation (mGy): 546
DAP (cm2.Gy): 31
Fluoroscopy time (minutes): 5.9
CONCLUSIONS
1. There is obstructive coronary artery disease in a right dominant system, however, no clear culprit lesion to explain severe cardiomyopathy with EF 25%. LAD is only borderline hemodynamically significant, diagonal branch with possible hazy lesion
has TIMI3 flow, RCA disease moderate, and severe distal LCx disease is a very small territory. Overall, picture more consistent with non-ischemic etiology of severe cardiomyopathy.
2. Elevated left ventricular filling pressure and no aortic stenosis on pullback.
RECOMMENDATIONS:
1. Expectant management after cardiac catheterization via right radial approach.
2. GDMT for heart failure, will start low dose beta lesli.
3. Further workup for etiology of likely NICM cardiomyopathy.
4. Secondary prevention of coronary artery disease with ASA/statin and aggressive risk factor modification.
Copy to: Dr. Karlee Tenorio MD (PCP)
Signed: Lio Grimm MD, PhD
[2024-11-02 19:14] LABS: APTT > 200 Sec (23.4-35.0)
[2024-11-02] MEDS: LYRICA PO (20:30)
[2024-11-02] MEDS: BENADRYL 25 MG PO (22:33)
[2024-11-02 23:07] LABS: APTT 37.9 Sec (23.4-35.0)
[2024-11-02 23:18] LABS: Procalcitonin < 0.05 ng/ml (0.0-0.25)
[2024-11-02] MEDS: HEPARIN 25000 UNITS/250 ML IV (23:33)
[2024-11-02] MEDS: NSS 1000 IV (23:59)
[2024-11-03] VITALS (9 sets, daily range): BP systolic 95–139; BP diastolic 55–100; BMI 29.7
--- NOTE | 2024-11-03 | PTCARENOTE ---
Rec'd pt at change of shift. Pt AAO*3, VSS, and pt in NSR or sinus tachycardic at times with HR in the 90-100's. Pt denies any pain or discomfort. Pt with R radial site CDI. Pt encouraged to cough, use IS, and take deep breathes. Pt agreed to
R limb restriction. PTT >200, AGRONOMY ADVISOR Wood notified. PT updated on plan of care and denies any questions or concerns. Pt resting with call williamson in reach. Plan of care ongoing.
[2024-11-03 04:30] LABS: APTT 51.6 Sec (23.4-35.0)
[2024-11-03 05:08] LABS: COVID-19 Antigen Negative (Negative)
[2024-11-03 05:14] LABS: HDL Cholesterol 73 mg/dl; LDL Cholesterol, Calculated 136 mg/dl; Total Cholesterol 225 mg/dl (50-199); Triglyceride 81 mg/dl (10-149); Very Low Density Lipoprotein 16 mg/dl (0-30)
[2024-11-03] MEDS: DUONEB 3 ML INH ×3 (07:48→15:27)
[2024-11-03 08:47] LABS: Glycohemoglobin (HgbA1c) 5.7 % (4.0-5.6)
[2024-11-03] MEDS: DECADRON 4 MG IV (09:06)
[2024-11-03] MEDS: VITAMIN E 400 UNITS PO (09:06)
[2024-11-03] MEDS: SYNTHROID 25 MCG PO (09:06)
[2024-11-03] MEDS: LAMICTAL 200 MG PO ×2 (09:06→20:24)
[2024-11-03] MEDS: VITAMIN D3 (cholecalciferol) 25 MCG PO (09:07)
[2024-11-03] MEDS: MUCINEX 600 MG PO ×2 (09:07→20:24)
[2024-11-03] MEDS: ZESTRIL 15 MG PO (09:07)
[2024-11-03] MEDS: NAMENDA 10 MG PO ×2 (09:07→20:25)
[2024-11-03] MEDS: LOW STRENGTH ASPIRIN 81 MG PO (09:07)
[2024-11-03] MEDS: LYRICA 100 MG PO ×3 (09:07→22:36)
[2024-11-03] MEDS: VITAMIN C 1000 MG PO (09:07)
[2024-11-03] MEDS: THERAGRAN 1 TABLET PO (09:08)
[2024-11-03] MEDS: ZOLOFT 100 MG PO (09:08)
[2024-11-03] MEDS: LOPRESSOR 12.5 MG PO ×2 (09:08→20:24)
--- NOTE | 2024-11-03 11:03 | W.PN.CD ---
Today's Communication / Plan
-
Give 20 mg IV Lasix now and assess response. This will require intensive monitoring of his creatinine, blood pressure and lites.
Hold IV fluids
Check chemistry
Discontinue heparin.
Case management consult for GDMT.
Impression / Plan
-
#HF rEF :
EF 20-25%, findings suggestive of Takotsubo's cardiomyopathy
LVEDP 29---STOP IVF
start IV lasix, given 20mg IV now and assess response
Transition metoprolol to succinate once titrated.
Hold lisinopril with hopes of transitioning to Entresto once euvolemic.
Will ask case management to sahu out SGLT2 inhibitors.
Will add MRA if blood pressure room
Coronary catheterization showed diffuse nonobstructive disease.
Troponin peaked at 1.6 which is very out of proportion to the degree of systolic dysfunction.
#Nonobstructive CAD
-recommend aggressive modification of risk factors.
-will continue high dose statin
#Type II DC: setting of new CMY and acute chf
-pk 1.6
-will continue aspirin
#HTN:
-stable overall, monitor
-will hold lisinopril for now
-
#HLD:
-on zetia
-check lipids
-w/u as above
Subjective:
He is still coughing a lot, he is worried about not having been able to eat over the last several days.
No chest pain or pressure. No recent acute stressful event.
TTE 11/02/2024:
Severely reduced left ventricular systolic function with severe hypokinesis of
the mid to apical wall segments and hyperdynamic basal wall segments. Estimated
left ventricular EF 20-25%.
No apical thrombus visualized with contrast enhancing agent.
Normal right ventricular size and function.
Mild mitral regurgitation.
Mild tricuspid regurgitation. Estimated PASP 45-50 mmHg.
Overall findings are suggestive of stress cardiomyopathy (Takotsubo's) versus
multivessel coronary artery disease.
Cath 11/02/24
HEMODYNAMIC DATA
LV 111/20 (EDP 29) mmHg
AO 119/82 (mean 98) mmHg
-
CONCLUSIONS
1. There is obstructive coronary artery disease in a right dominant system, however, no clear culprit lesion to explain severe cardiomyopathy with EF 25%. LAD is only borderline hemodynamically significant, diagonal branch with possible hazy lesion
has TIMI3 flow, RCA disease moderate, and severe distal LCx disease is a very small territory. Overall, picture more consistent with non-ischemic etiology of severe cardiomyopathy.
2. Elevated left ventricular filling pressure and no aortic stenosis on pullback.
RECOMMENDATIONS:
1. Expectant management after cardiac catheterization via right radial approach.
2. GDMT for heart failure, will start low dose beta lesli.
3. Further workup for etiology of likely NICM cardiomyopathy.
4. Secondary prevention of coronary artery disease with ASA/statin and aggressive risk factor modification.
CTPE 11/02/24IMPRESSION:��
1. No evidence of central or segmental pulmonary embolism.��
2. Secretions within the trachea extending into the bilateral mainstem bronchi. There is a small
groundglass opacities within the bilateral upper lobes which may be its infectious/inflammatory.��
3. Extensive coronary artery calcifications.�
Physical Exam
Vital Signs/Labs
Vital Signs
Temp Pulse Resp BP Pulse Ox
98.2 F 95 16 126/84 94
11/03/24 06:58 11/03/24 07:52 11/03/24 07:52 11/03/24 03:07 11/03/24 07:52
11/02/24 11/03/24 11/04/24
06:59 06:59 06:59
Actual Weight 101.775 kg 99.2 kg
11/02/24 14:38
11/02/24 05:28
APTT 51.6 Sec (23.4-35.0) H 11/03/24 03:46
Magnesium 2.3 mg/dl (1.6-2.3) 11/02/24 05:28
Triglycerides 81 mg/dl (10-149) 11/03/24 03:46
LDL Cholesterol, Calc 136 mg/dl 11/03/24 03:46
VLDL Cholesterol, Calc 16 mg/dl (0-30) 11/03/24 03:46
HDL Cholesterol 73 mg/dl 11/03/24 03:46
11/01/24
11:26
Xsz-C-Rneuceqvrat Pept 238
LAB Results
11/01/24 11/01/24 11/01/24
11:26 17:14 20:46
Troponin I 0.095 H* 0.938 H* D Cancelled
11/01/24 11/02/24 11/02/24
23:28 05:23 11:10
Troponin I 1.650 H* D 1.530 H* 1.650 H*
11/02/24
18:35
Troponin I 1.510 H*
Physical Exam
Constitutional: No acute distress and Comfortable
Cardiovascular: Rhythm & rate is regular, Pedal edema is absent and JVD pressure is normal
Respiratory: Respiratory effort normal and Wheeze Present (Diffusely in the bibasilar lobes)
Neuro/Psych: AO x 3
Data Reviewed
-
Date of Service: November 03, 2024
Medical Decision Making: Review of Case with other Provider (Findings of elevated LVEDP and need to stop IV fluids discussed with Dr. Eastman.)
EKG: Other (Telemetry shows sinus tachycardia and sinus rhythm)
Medical Tests (PFT, Pathology etc): Discussed with Family (Discussed results of catheterization, this CAT scan and echocardiogram with the patient and his Micki at the bedside)
[2024-11-03 11:45] LABS: Albumin 4.2 g/dl (3.5-5.0); Blood Urea Nitrogen 27 mg/dl (9-20); Calcium 9.5 mg/dl (8.4-10.2); Carbon Dioxide 20 mmol/L (22-30); Chloride 103 mmol/L (98-107); Estimated Creatinine Clearance 75 ml/min; Glucose 107 mg/dl (70-99); Phosphorus 3.4 mg/dl (2.5-4.5); Sodium 137 mmol/L (135-145); eGFR > 60.00
[2024-11-03] MEDS: LASIX 20 MG IV ×2 (11:54→17:03)
[2024-11-03] MEDS: ANESTHETIC LOZENGE 1 LOZENGE PO ×2 (11:55→22:36)
--- NOTE | 2024-11-03 15:48 | W.PN.PUL3 ---
Today's Communication / Plan
-
Discontinue steroids
Continue as needed nebulizers
Continue cardiac management
Outpatient pulmonary follow-up
Sign off
Assessment
-
Patient is a 79-year-old male with previous history of Pdnwlfz-Tlijd-Essur syndrome, seizure disorder, COPD, hypertension presenting with shortness of breath with past 3 days, associated with intermittent chills, cough with sputum production. He
denies any lower extremity edema but has gained 20 pounds in the past month. He was last seen at our office in May with PFTs that were normal. He was taken off his controller medication, Symbicort and placed on albuterol as needed. He is not
sure what triggered his complaints prior to admission. Chest x-ray demonstrating no acute process, borderline cardiomegaly with some trace edema, proBNP 238. Of note troponin elevation seen from 0.095->1.65, trending upward. We are consulted for
eval.
Acute onset shortness of breath
Elevated troponins with EKG changes, possible ACS
Abnormal chest x-ray
Weight gain, 20 pounds
Cough with sputum production
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
COPD, last seen at [facility] 05/2024
Most recent pulmonary function test was normal, no evidence of obstruction.
Mildly reduced diffusing capacity noted. Continued off maintenance inhaler therapy/albuterol PRN
Mild ELBA-PSG w/ AHI 12.3 events/hour, O2 opal 82%
Benign prostatic hyperplasia
Jdfmtjo-Bwput-Llygc disease
Essential hypertension
History of basal cell carcinoma
Alzheimer's dementia
History of squamous cell carcinoma of skin
Major depressive disorder
Macrocytic anemia
History of colon polyps
Other chronic pain
GERD without esophagitis
Gait disturbance
Epilepsy
Plan
Hypoxemia has resolved.
Reviewed CT chest: Showed no significant parenchymal lung abnormality. No significant emphysema. Some airway secretions. No acute pulmonary embolism.
Patient denies any pulmonary complaints
Not bronchospastic on exam 11/03/2024 at 4 PM
-
Prior history of lung disease is noted including COPD history, but last PFT in office in May was normal/no obstruction
He was de-escalated off of his inhalers at that time, using albuterol as needed
Not bronchospastic on exam.
Discontinue steroids and observe.
Discontinue iajzhq-tuo-ksbkp nebulizers
-
Nonischemic cardiomyopathy ejection fraction 20 to 25%
Left heart catheterization this admission reviewed: Nonobstructive coronary artery disease. Elevated filling pressures per
Diuresis at cardiology discretion
Goal-directed therapy for heart failure.
Smoking history noted, quit 25 years ago
He would not be at risk for primary lung cancer, no indication for screening
CT chest with a lung nodule
Endobronchial secretions noted. Can be followed in the outpatient setting. At the moment without bronchitic symptoms.
Recently diagnosed with mild obstructive sleep apnea
Can start CPAP if patient would like to try it while inpatient
Otherwise, can wait for outpatient set up
Will need outpatient pulmonary evaluation in our office for PFTs and 6MWT
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
No additional recommendation from the pulmonary perspective.
Continue with cardiac management
Sign off
Diagnostic Data
CXR 11/01/24- 1. Mild cardiomegaly. Suggestion of mild pulmonary edema. 2. No evidence of lobar pneumonia or significant pleural effusion.
06/07/24- Lungs/Pleura: There are low lung volumes with bronchovascular crowding and left basilar atelectasis. No consolidation, pleural effusion, or pneumothorax.
Low lung volumes. No active pulmonary process.
CT Chest 07/06/15-Stable tiny left lower lobe pulmonary nodule over a period of 14 months. No new lung findings. Stable probable small hepatic cyst.
Fairly extensive coronary artery calcification consistent with atherosclerosis. Please correlate clinically.
ECHO 09/06/16- Normal biventricular size and systolic function without regional wall motion abnormality. Mild mitral regurgitation. No prior study available for comparison.
Reports and relevant images were personally reviewed.
Total time spent on this consultation __76__ minutes which includes review of history, physical exam, medications, laboratory data, personal review of imaging, extensive review of outpatient records, discussion with care team and respiratory therapy.
Subjective Data
-
Date of Service:
Date of Service: November 03, 2024
Chief Complaint: Pulmonary Follow Up (Hypoxemic respiratory failure)
Subjective:
Status post catheterization-no stent was placed
Patient denies any acute complaints at the moment.
Denies significant phlegm production
Review of Systems
Cardiopulmonary: Dyspnea (improved), Cough (n) and Wheezing (n)
Objective Data
Data Reviewed
Vital Signs / I&O / Oxygen:
Vital Signs
Temp Pulse Resp BP Pulse Ox
97.3 F 99 14 95/55 98
11/03/24 15:06 11/03/24 15:41 11/03/24 15:41 11/03/24 15:01 11/03/24 15:41
Intake and Output
11/02/24 11/03/24 11/04/24
06:59 06:59 06:59
Intake Total 240 / 240 1904 / 1904 50 / 50
Output Total 500 / 500
Balance 240 / 240 1904 / 1904 -450 / -450
SaO2 98
Nasal Cannula flow liters per 1
minute
Physical Exam
General: Comfortable
HEENT: Normocephalic
Cardiovascular: S1-S2
Respiratory: Clear and Non-Labored Respirations
GI: Soft and Non Distended
Neurology: Awake, AO x 3 and No Motor Deficits
Skin: Warm
Labs/Micro/Reports
Lab Data
11/02/24 14:38
11/03/24 03:46
Laboratory Results
11/02/24 11/02/24 11/02/24
14:38 18:35 22:42
APTT Cancelled > 200 H* 37.9 H
11/03/24 11/03/24
03:46 10:45
APTT 51.6 H Cancelled
Microbiology
11/03/24 03:46 Nasal Swab Influenza Types A & B (TATYANA) - Final
Negative for Influenza A & B, NAAT
Negative results must be combined with clinical observations
and patient history.
Nucleic Acid Amplification test (NAAT)performed on the
[employer] platform.
11/01/24 13:04 Nasal Swab Influenza Types A & B (TATYANA) - Final
Negative for Influenza A & B, NAAT
Negative results must be combined with clinical observations
and patient history.
Nucleic Acid Amplification test (NAAT)performed on the
[employer] platform.
[2024-11-03] MEDS: CRESTOR 20 MG PO (17:03)
[2024-11-03] MEDS: ZETIA 10 MG PO (17:03)
--- NOTE | 2024-11-03 17:34 | W.PN.HOSP.TC ---
Today's Communication/Plan
-
Cardiomyopathy, management to be reviewed with cardio
Assessment / Plan
Assessment / Plan
# Acute asthma/COPD exacerbation appears to have resolved. Currently main issue appears to be cardiac with decreased EF of 20-25%
Cardio believes Takotsubo cardiomyopathy
Pt goes to Pul as outpt, input of Dr. Lopez appreciated, pul has signed off
-bilateral expiratory wheezing on exam consistent with COPD exacerbation, that has significantly improved over past 24 hrs
-Chest x-ray shows mild cardiomegaly, suggestion of mild pulmonary edema without evidence of pneumonia/pleural effusion
-Cardiac BNP 200
-Check COVID and influenza
-DuoNebs every 6 hours
-Dexamethasone 4 mg every 12 started on admission, has been stopped as per Pul
-Mucinex
-seems to be evidence of undiagnosed CHF although not overtly volume overloaded on exam
Has not seen cardio in past, but goes to [place] and requesting her group
Heparin stopped
Heart cath: 11/02 1. There is obstructive coronary artery disease in a right dominant system, however, no clear culprit lesion to explain severe cardiomyopathy with EF 25%. LAD is only borderline hemodynamically significant, diagonal branch with
possible hazy lesion has TIMI3 flow, RCA disease moderate, and severe distal LCx disease is a very small territory. Overall, picture more consistent with non-ischemic etiology of severe cardiomyopathy.
2. Elevated left ventricular filling pressure and no aortic stenosis on pullback.
CT scan of chest 11/02: 1. No evidence of central or segmental pulmonary embolism.
2. Secretions within the trachea extending into the bilateral mainstem bronchi. There is a small groundglass opacities within the bilateral upper lobes which may be its infectious/inflammatory.
3. Extensive coronary artery calcifications.
#Cigs
was a 2ppd for 20 yrs, quitting 25 yrs ago
# Nonischemic myocardial injury
-Troponin 0.095-->0.938-->1.65-->1.53
-EKG shows sinus tachycardia, incomplete left bundle branch block
-Trend troponins
Fasbywf-Yrnoj-Nwubs syndrome
-Continue pregabalin
Seizure disorder
-Continue Lamictal
Essential hypertension
-Continue lisinopril
CAD
-Continue aspirin
Dementia/depression
-Continue sertraline, memantine
Hypothyroidism
-Continue levothyroxine
GERD
-Continue lansoprazole
Hyperlipidemia
-Continue Zetia
Call from Dr. Brown
pt to be changed to full admit
Full code
DVT prophylaxis�heparin
Regular diet
Anticipated Discharge: 24 - 48 hours
Subjective/Interval History
-
Date of Service: November 03, 2024
Asking to be discharged
Objective Data
-
Labs:
Laboratory Results
11/03/24 11/03/24
03:46 10:45
APTT Cancelled
Sodium 137
Potassium 5.0
Chloride 103
Carbon Dioxide 20 L
BUN 27 H
Creatinine 0.9
Glucose 107 H
Calcium 9.5
Vital Signs:
Vital Signs
Temp Pulse Resp BP Pulse Ox
97.3 F 107 14 139/87 98
11/03/24 15:06 11/03/24 17:01 11/03/24 15:41 11/03/24 17:01 11/03/24 15:41
I&O
11/02/24 11/03/24 11/04/24
06:59 06:59 06:59
Intake Total 240 / 240 1903 50 / 50
Output Total 500 / 500
Balance 240 / 240 1903 / 190 -450 / -450
Review of Systems
-
History Source: Patient and Family ( at bedside)
Constitutional: Denies Fever
Respiratory: Reports Cough and Trouble Breathing
Cardiac: Denies Chest Pain
Genitourinary: Reports No Symptoms
Physical Exam
-
General: Well Developed, Well Nourished and No Apparent Distress
HEENT: Normocephalic, Atraumatic and Moist Mucous Membranes
Respiratory: Wheezes (mid-end expiraotry high freq wheeze)
Cardiac: Regular Rhythm, S1/S2 and Tachycardic
GI: Soft, Nontender and Nondistended
Musculoskeletal: No Clubbing, No Cyanosis and No Edema
Neuro: Awake and Alert
[2024-11-03] MEDS: BENADRYL 25 MG PO (22:36)
[2024-11-03] MEDS: NORCO 7.5/325 1 TABLET PO (22:36)
--- NOTE | 2024-11-03 23:40 | PTCARENOTE ---
Rec'd pt at change of shift. PT AAO*3, VSS, and NSR on TELE monitor. Pt agreed to ambulate only with staff assistance. Pt on bed alarm as precaution, due too unsteady gain and use of walker. Pt complained of pain in lowering extremities and
given NORCO as ordered. Pt currently resting with call williamson in reach. Plan of care ongoing.
[2024-11-04] VITALS (11 sets, daily range): BP systolic 83–125; BP diastolic 57–113; BMI 29.3
[2024-11-04 05:57] LABS: Hematocrit 42.6 % (39.0-52.0); Hemoglobin 14.4 g/dL (13.0-18.0); Mean Corp Hgb Conc. 33.8 g/dL (33.0-37.0); Mean Corpuscular Hgb 30.4 pg (27.0-31.0); Mean Corpuscular Volume 90.1 fL (80.0-94.0); Mean Platelet Volume 9.3 fL (7.4-10.4); Platelet Count 286 10^3/uL (130-400); Red Blood Cell Count 4.73 10^6/uL (4.70-6.10); Red Cell Dist. Width 13.1 % (11.5-14.5); White Blood Cell Count 12.5 10^3/uL (4.8-10.8)
[2024-11-04] MEDS: DUONEB 3 ML INH (06:06)
[2024-11-04 06:57] LABS: Blood Urea Nitrogen 45 mg/dl (9-20); Calcium 9.7 mg/dl (8.4-10.2); Carbon Dioxide 22 mmol/L (22-30); Chloride 102 mmol/L (98-107); Estimated Creatinine Clearance 42 ml/min; Glucose 92 mg/dl (70-99); Potassium 4.3 mmol/L (3.5-5.1); Sodium 139 mmol/L (135-145)
[2024-11-04] MEDS: VITAMIN C 1000 MG PO (09:27)
[2024-11-04] MEDS: VITAMIN D3 (cholecalciferol) 25 MCG PO (09:27)
[2024-11-04] MEDS: LOPRESSOR 12.5 MG PO ×2 (09:27→20:00)
[2024-11-04] MEDS: MUCINEX 600 MG PO ×2 (09:27→20:00)
[2024-11-04] MEDS: ZOLOFT 100 MG PO (09:28)
[2024-11-04] MEDS: SYNTHROID 25 MCG PO (09:28)
[2024-11-04] MEDS: LAMICTAL 200 MG PO ×2 (09:28→19:59)
[2024-11-04] MEDS: LYRICA 100 MG PO ×3 (09:28→23:20)
[2024-11-04] MEDS: VITAMIN E 400 UNITS PO (09:28)
[2024-11-04] MEDS: LOW STRENGTH ASPIRIN 81 MG PO (09:28)
[2024-11-04] MEDS: THERAGRAN 1 TABLET PO (09:29)
[2024-11-04] MEDS: NAMENDA 10 MG PO ×2 (09:29→20:00)
--- NOTE | 2024-11-04 11:09 | W.PN.CD ---
Today's Communication / Plan
-
Hold Lasix
hopefully resume diuresis tomorrow
Impression / Plan
-
#HF rEF :
EF 20-25%, findings suggestive of Takotsubo's cardiomyopathy
LVEDP 29
Good response to IV Lasix, but with contrast nephropathy likely today, will hold
Transition metoprolol to succinate once titrated.
Hold lisinopril with hopes of transitioning to Entresto once euvolemic.
Will ask case management to sahu out SGLT2 inhibitors.
Will add MRA if blood pressure room
Coronary catheterization showed diffuse nonobstructive disease.
Troponin peaked at 1.6 which is very out of proportion to the degree of systolic dysfunction.
#NARESH in the setting of cardiac catheterization and CT PE on the same day. Timing is consistent with contrast nephropathy.
-Expect peak tomorrow
-Hold diuresis
-Continue to monitor creatinine
#Nonobstructive CAD
-recommend aggressive modification of risk factors.
-will continue high dose statin
#Type II ID: setting of new CMY and acute chf
-pk 1.6
-will continue aspirin
#HTN:
-stable overall, monitor
-will hold lisinopril for now
#HLD:
-on zetia
-Statin started
High risk situation with acute kidney injury and severe cardiomyopathy.
Subjective:
He is still coughing a lot but this is better, he was able to lie down and sleep last night for the first time in a long while.
TTE 11/02/2024:
Severely reduced left ventricular systolic function with severe hypokinesis of
the mid to apical wall segments and hyperdynamic basal wall segments. Estimated
left ventricular EF 20-25%.
No apical thrombus visualized with contrast enhancing agent.
Normal right ventricular size and function.
Mild mitral regurgitation.
Mild tricuspid regurgitation. Estimated PASP 45-50 mmHg.
Overall findings are suggestive of stress cardiomyopathy (Takotsubo's) versus
multivessel coronary artery disease.
Cath 11/02/24
HEMODYNAMIC DATA
LV 111/20 (EDP 29) mmHg
AO 119/82 (mean 98) mmHg
-
CONCLUSIONS
1. There is obstructive coronary artery disease in a right dominant system, however, no clear culprit lesion to explain severe cardiomyopathy with EF 25%. LAD is only borderline hemodynamically significant, diagonal branch with possible hazy lesion
has TIMI3 flow, RCA disease moderate, and severe distal LCx disease is a very small territory. Overall, picture more consistent with non-ischemic etiology of severe cardiomyopathy.
2. Elevated left ventricular filling pressure and no aortic stenosis on pullback.
RECOMMENDATIONS:
1. Expectant management after cardiac catheterization via right radial approach.
2. GDMT for heart failure, will start low dose beta lesli.
3. Further workup for etiology of likely NICM cardiomyopathy.
4. Secondary prevention of coronary artery disease with ASA/statin and aggressive risk factor modification.
CTPE 11/02/24IMPRESSION:��
1. No evidence of central or segmental pulmonary embolism.��
2. Secretions within the trachea extending into the bilateral mainstem bronchi. There is a small
groundglass opacities within the bilateral upper lobes which may be its infectious/inflammatory.��
3. Extensive coronary artery calcifications.�
Physical Exam
Vital Signs/Labs
Vital Signs
Temp Pulse Resp BP Pulse Ox
97.7 F 76 20 97/70 92
11/04/24 07:00 11/04/24 09:27 11/04/24 07:00 11/04/24 09:27 11/04/24 07:00
11/03/24 11/04/24 11/05/24
06:59 06:59 06:59
Actual Weight 99.2 kg 97.8 kg
11/04/24 05:44
11/04/24 05:44
APTT Cancelled 11/03/24 10:45
Magnesium 2.3 mg/dl (1.6-2.3) 11/02/24 05:28
Triglycerides 81 mg/dl (10-149) 11/03/24 03:46
LDL Cholesterol, Calc 136 mg/dl 11/03/24 03:46
VLDL Cholesterol, Calc 16 mg/dl (0-30) 11/03/24 03:46
HDL Cholesterol 73 mg/dl 11/03/24 03:46
11/01/24
11:26
Urr-K-Aeoibxlgkpv Pept 238
LAB Results
11/01/24 11/01/24 11/01/24
11:26 17:14 20:46
Troponin I 0.095 H* 0.938 H* D Cancelled
11/01/24 11/02/24 11/02/24
23:28 05:23 11:10
Troponin I 1.650 H* D 1.530 H* 1.650 H*
11/02/24
18:35
Troponin I 1.510 H*
Physical Exam
Constitutional: No acute distress
Cardiovascular: Rhythm & rate is regular, Pedal edema is absent, JVD pressure is normal, Systolic murmur absent and Diastolic murmur absent
Respiratory: Respiratory effort normal, Crackles Absent and Wheeze Present (But very mild)
Neuro/Psych: AO x 3
Data Reviewed
-
Date of Service: November 04, 2024
Medical Decision Making: Review of Case with other Provider (Case reviewed with Dr. Eastman and IVBernadine Bryant)
EKG: Other (Telemetry shows sinus rhythm/sinus tachycardia)
--- NOTE | 2024-11-04 12:21 | PTCARENOTE ---
received patient this am in bed, AAO x 3, monitor shows NSR, VSS. lung eugene coarse throughout, harsh cough, nonproductive, on RA 95%. patient has very poor appetite. am lasix on hold as ordered.
[2024-11-04] MEDS: ANESTHETIC LOZENGE 1 LOZENGE PO ×2 (12:40→23:20)
--- NOTE | 2024-11-04 12:41 | PTCARENOTE ---
patient has non productive cough , requested lozenger, given as ordered.
[2024-11-04] MEDS: ROBITUSSIN AC 5 ML PO (15:21)
--- NOTE | 2024-11-04 16:26 | W.PN.HOSP.TC ---
Today's Communication/Plan
-
Incentive Spirometry
Robitussin AC prn
CXR
Assessment / Plan
Assessment / Plan
# Acute asthma/COPD exacerbation appears to have resolved. Currently main issue appears to be cardiac with decreased EF of 20-25%
Cardio believes Takotsubo cardiomyopathy
Pt goes to Pul as outpt, input of Dr. Lopez appreciated, pulm has signed off
-bilateral expiratory wheezing on exam consistent with COPD exacerbation, that has significantly improved over past 24 hrs
today with significant rhonchi rt mid lung (?atelectasis)
-Chest x-ray shows mild cardiomegaly, suggestion of mild pulmonary edema without evidence of pneumonia/pleural effusion
-Cardiac BNP 200
-Check COVID and influenza
-DuoNebs every 6 hours
-Dexamethasone 4 mg every 12 started on admission, has been stopped as per Pulm
-Mucinex
-seems to be evidence of undiagnosed CHF although not overtly volume overloaded on exam
Has not seen cardio in past, but goes to [place] and requesting her group
Heparin stopped
Heart cath: 11/02 1. There is obstructive coronary artery disease in a right dominant system, however, no clear culprit lesion to explain severe cardiomyopathy with EF 25%. LAD is only borderline hemodynamically significant, diagonal branch with
possible hazy lesion has TIMI3 flow, RCA disease moderate, and severe distal LCx disease is a very small territory. Overall, picture more consistent with non-ischemic etiology of severe cardiomyopathy.
2. Elevated left ventricular filling pressure and no aortic stenosis on pullback.
CT scan of chest 11/02: 1. No evidence of central or segmental pulmonary embolism.
2. Secretions within the trachea extending into the bilateral mainstem bronchi. There is a small groundglass opacities within the bilateral upper lobes which may be its infectious/inflammatory.
3. Extensive coronary artery calcifications.
#Cigs
was a 2ppd for 20 yrs, quitting 25 yrs ago
# Nonischemic myocardial injury
-Troponin 0.095-->0.938-->1.65-->1.53
-EKG shows sinus tachycardia, incomplete left bundle branch block
-Trend troponins
Xccbisl-Scxqj-Shdld syndrome
-Continue pregabalin
Seizure disorder
-Continue Lamictal
Essential hypertension
-Continue lisinopril
CAD
-Continue aspirin
Dementia/depression
-Continue sertraline, memantine
Hypothyroidism
-Continue levothyroxine
GERD
-Continue lansoprazole
Hyperlipidemia
-Continue Zetia
Call from Dr. Brown
pt to be changed to full admit
Full code
DVT prophylaxis�heparin
Regular diet
Anticipated Discharge: > 48 hours
Subjective/Interval History
-
Date of Service: November 04, 2024
Still with frequent cough
Objective Data
-
Labs:
Laboratory Results
11/04/24
05:44
WBC 12.5 H
Hgb 14.4
Hct 42.6
Plt Count 286
Sodium 139
Potassium 4.3
Chloride 102
Carbon Dioxide 22
BUN 45 H
Creatinine 1.6 H
Glucose 92
Calcium 9.7
Vital Signs:
Vital Signs
Temp Pulse Resp BP Pulse Ox
98.3 F 85 20 97/70 98
11/04/24 16:22 11/04/24 11:00 11/04/24 16:22 11/04/24 09:27 11/04/24 16:22
I&O
11/03/24 11/04/24 11/05/24
06:59 06:59 06:59
Intake Total 1903 530 / 530
Output Total 500 / 500
Balance 1903 30 / 30
Review of Systems
-
History Source: Patient and Family ( at bedside)
Constitutional: Denies Fever
Respiratory: Reports Cough and Trouble Breathing
Cardiac: Denies Chest Pain
Genitourinary: Reports No Symptoms
Physical Exam
-
General: Well Developed, Well Nourished and No Apparent Distress
HEENT: Normocephalic, Atraumatic and Moist Mucous Membranes
Respiratory: Wheezes (mid-end expiraotry high freq wheeze) and Rhonchi (scattered rhonch rt lower lung field)
Cardiac: Regular Rhythm, S1/S2 and Tachycardic
GI: Soft, Nontender and Nondistended
Musculoskeletal: No Clubbing, No Cyanosis and No Edema
Neuro: Awake and Alert
[2024-11-04] MEDS: CRESTOR 20 MG PO (17:49)
[2024-11-04] MEDS: ZETIA 10 MG PO (17:49)
[2024-11-04] MEDS: BENADRYL 25 MG PO (23:20)
[2024-11-04] MEDS: NORCO 7.5/325 1 TABLET PO (23:20)
[2024-11-05] VITALS (10 sets, daily range): BP systolic 85–106; BP diastolic 50–66; BMI 29.3
[2024-11-05 05:25] LABS: Blood Urea Nitrogen 45 mg/dl (9-20); Calcium 9.3 mg/dl (8.4-10.2); Carbon Dioxide 24 mmol/L (22-30); Chloride 104 mmol/L (98-107); Estimated Creatinine Clearance 52 ml/min; Glucose 96 mg/dl (70-99); Sodium 139 mmol/L (135-145); eGFR 56.58
--- NOTE | 2024-11-05 06:01 | PTCARENOTE ---
Rec'd pt at change of shift. Pt AAO*3, in NSR on TELE monitor, VSS, and pleasant. Pt denies any pain or discomfort and verbalizes safety and comfort. Pt on bed alarm for safety and ambulating with staff assistance and walker. Pt updated on plan
of care and denies any questions or concerns. Pt resting with call williamson in reach. Plan of care ongoing.
--- NOTE | 2024-11-05 08:11 | W.PN.HOSP.TC ---
Today's Communication/Plan
-
see plan
Assessment / Plan
Assessment / Plan
Mr. Momo Porter is a 79 yo man with hx tobacco use, seizure disorder, essential HTN, CAD presents to the ER with shortness of breath.
CT scan of chest 11/02: 1. No evidence of central or segmental pulmonary embolism.
2. Secretions within the trachea extending into the bilateral mainstem bronchi. There is a small groundglass opacities within the bilateral upper lobes which may be its infectious/inflammatory.
3. Extensive coronary artery calcifications.
TTE 11/02/24
Severely reduced left ventricular systolic function with severe hypokinesis of
the mid to apical wall segments and hyperdynamic basal wall segments. Estimated
left ventricular EF 20-25%.
No apical thrombus visualized with contrast enhancing agent.
Normal right ventricular size and function.
Mild mitral regurgitation.
Mild tricuspid regurgitation. Estimated PASP 45-50 mmHg.
Overall findings are suggestive of stress cardiomyopathy (Takotsubo's) versus
multivessel coronary artery disease.
Cardiac Cath 11/02/24
RECOMMENDATIONS:
1. Expectant management after cardiac catheterization via right radial approach.
2. GDMT for heart failure, will start low dose beta lesli.
3. Further workup for etiology of likely NICM cardiomyopathy.
4. Secondary prevention of coronary artery disease with ASA/statin and aggressive risk factor modification.
Heart Failure reduced EF 20-25% - new diagnosis
-Chest x-ray shows mild cardiomegaly, suggestion of mild pulmonary edema without evidence of pneumonia/pleural effusion
-s/p cardiac cath 11/02, results above. likely Takutsubo cardiomyopathy
-diuresis per cardiology, held with NARESH post contrast
-continue new start aspirin/statin
-metop, eventual transition to XL
-eventual start Entresto, SGLT2 inhibitor
# Acute asthma/COPD exacerbation
-appears to have resolved. Currently main issue appears to be cardiac (see below)
-Pt goes to Pul as outpt, input of Dr. Lopez appreciated, [facility] has signed off
-duonebs PRN
-s/p steroid course
NARESH
-2/2 contrast nephropathy (CTA and cardiac cath same day)
-improving today
#hx tobacco use
was a 2ppd for 20 yrs, quitting 25 yrs ago
# Nonischemic myocardial injury
-Troponin 0.095-->0.938-->1.65-->1.53
-EKG shows sinus tachycardia, incomplete left bundle branch block
-Trend troponins
Orjteyh-Glgvr-Zgxfj syndrome
-Continue pregabalin
Seizure disorder
-Continue Lamictal
Essential hypertension
-Continue lisinopril
CAD
-Continue aspirin
Dementia/depression
-Continue sertraline, memantine
Hypothyroidism
-Continue levothyroxine
GERD
-Continue lansoprazole
Hyperlipidemia
-Continue Zetia
Call from Dr. Brown
pt to be changed to full admit
Full code
DVT prophylaxis�heparin
Regular diet
Anticipated Discharge: 24 - 48 hours
Subjective/Interval History
-
Date of Service: November 05, 2024
feeling better today
persistent cough
no chest pain
Objective Data
-
Labs:
Laboratory Results
11/05/24
04:14
Sodium 139
Potassium 4.0
Chloride 104
Carbon Dioxide 24
BUN 45 H
Creatinine 1.3
Glucose 96
Calcium 9.3
Vital Signs:
Vital Signs
Temp Pulse Resp BP Pulse Ox
98.2 F 85 20 106/66 94
11/05/24 04:06 11/05/24 04:06 11/05/24 04:06 11/05/24 04:06 11/05/24 04:06
I&O
11/04/24 11/05/24 11/06/24
06:59 06:59 06:59
Intake Total 530 / 530 480 / 480
Output Total 500 / 500
Balance 30 / 30 480 / 480
Review of Systems
-
History Source: Patient
All other systems: Reviewed and negative
Physical Exam
-
General: Well Developed, Well Nourished and No Apparent Distress
HEENT: Normocephalic, Atraumatic and Moist Mucous Membranes
Respiratory: Wheezes (mid-end expiraotry high freq wheeze) and Rhonchi (scattered rhonch rt lower lung field)
Cardiac: Regular Rhythm, S1/S2 and Tachycardic
GI: Soft, Nontender and Nondistended
Musculoskeletal: No Clubbing, No Cyanosis and No Edema
Neuro: Awake and Alert
Data Reviewed
-
Diagnostic Radiology: Report Reviewed by me
Labs: Labs Reviewed by me
[2024-11-05] MEDS: NAMENDA 10 MG PO ×2 (08:56→19:56)
[2024-11-05] MEDS: SYNTHROID 25 MCG PO (08:56)
[2024-11-05] MEDS: LYRICA 100 MG PO ×3 (08:56→22:31)
[2024-11-05] MEDS: VITAMIN C 1000 MG PO (08:56)
[2024-11-05] MEDS: LOPRESSOR 12.5 MG PO ×2 (08:56→09:40)
[2024-11-05] MEDS: VITAMIN E 400 UNITS PO (08:56)
[2024-11-05] MEDS: LOW STRENGTH ASPIRIN 81 MG PO (08:56)
[2024-11-05] MEDS: ZOLOFT 100 MG PO (08:57)
[2024-11-05] MEDS: MUCINEX 600 MG PO ×2 (08:57→19:56)
[2024-11-05] MEDS: VITAMIN D3 (cholecalciferol) 25 MCG PO (08:57)
[2024-11-05] MEDS: LAMICTAL 200 MG PO ×2 (08:57→19:59)
[2024-11-05] MEDS: THERAGRAN 1 TABLET PO (08:57)
--- NOTE | 2024-11-05 09:10 | CM ---
Reviewed chart. Mr. Porter was transferred to IVU. Met with Mr. Porter to review discharge plans. He states he is feeling better and maybe able to go home soon. He states prior to admission he resides with his spouse in a one story home with
five steps to enter. He states prior to admission he was independent with ambulation and adls. He states he has a single point cane and a walker at home. He has a prescription plan and uses [facility]
for Entresto, Jardiance and Farxiga. The co-pay for Entresto / bid is $47.00 a month. Farxiga 10 mg po daily is $100.00 a month and Jardiance 10 mg once a day co-pay is $47.00 a month. Reviewed co-pay and one month free coupon with him. He
states he does not feel he can afford the medications. Updated attending and Cardiology. We reviewed VNA services and he is agreeable to [facility] Telephone call to [facility] to make the referral. Left message. Sent referral.
Medical work-up in progress. The discharge plan is to return home with his spouse and [facility] when medically stable.
--- NOTE | 2024-11-05 09:11 | W.PN.CD ---
Today's Communication / Plan
-
inc. metoprolol
diuresis with 20 IV lasix
further GDMT addition pending cost of Entresto/SGLT2i
Impression / Plan
-
# HFrEF:
EF 20-25%, findings suggestive of Takotsubo's cardiomyopathy (Coronary catheterization showed diffuse nonobstructive disease. Troponin peaked at 1.6 which is very out of proportion to the degree of systolic dysfunction)
LVEDP 29 Good response to IV Lasix, but with contrast nephropathy held yesterday, Cr improved today, will give diuresis
INc. metoprolol to 25 BID, Transition metoprolol to succinate once titrated.
Hold lisinopril with hopes of transitioning to Entresto once euvolemic.
Will ask case management to sahu out SGLT2 inhibitors and Entresto...pending currently
Will add MRA if blood pressure room
#NARESH in the setting of cardiac catheterization and CT PE on the same day. Timing is consistent with contrast nephropathy.
-improving
-Continue to monitor creatinine
#Nonobstructive CAD
-recommend aggressive modification of risk factors.
-will continue high dose statin, goal LDL<55
#Type II VT: setting of new CMY and acute chf
-pk 1.6
-will continue aspirin
#HTN:
-stable overall, monitor
-will hold lisinopril for now as above
#HLD:
-on zetia
-Statin started
High risk situation with acute kidney injury and severe cardiomyopathy.
Subjective:
Coughing significantly improved. Feeling well walking to and from bathroom. No chest discomfort.
TTE 11/02/2024:
Severely reduced left ventricular systolic function with severe hypokinesis of
the mid to apical wall segments and hyperdynamic basal wall segments. Estimated
left ventricular EF 20-25%.
No apical thrombus visualized with contrast enhancing agent.
Normal right ventricular size and function.
Mild mitral regurgitation.
Mild tricuspid regurgitation. Estimated PASP 45-50 mmHg.
Overall findings are suggestive of stress cardiomyopathy (Takotsubo's) versus
multivessel coronary artery disease.
Cath 11/02/24
HEMODYNAMIC DATA
LV 111/20 (EDP 29) mmHg
AO 119/82 (mean 98) mmHg
-
CONCLUSIONS
1. There is obstructive coronary artery disease in a right dominant system, however, no clear culprit lesion to explain severe cardiomyopathy with EF 25%. LAD is only borderline hemodynamically significant, diagonal branch with possible hazy lesion
has TIMI3 flow, RCA disease moderate, and severe distal LCx disease is a very small territory. Overall, picture more consistent with non-ischemic etiology of severe cardiomyopathy.
2. Elevated left ventricular filling pressure and no aortic stenosis on pullback.
RECOMMENDATIONS:
1. Expectant management after cardiac catheterization via right radial approach.
2. GDMT for heart failure, will start low dose beta lesli.
3. Further workup for etiology of likely NICM cardiomyopathy.
4. Secondary prevention of coronary artery disease with ASA/statin and aggressive risk factor modification.
CTPE 11/02/24IMPRESSION:��
1. No evidence of central or segmental pulmonary embolism.��
2. Secretions within the trachea extending into the bilateral mainstem bronchi. There is a small
groundglass opacities within the bilateral upper lobes which may be its infectious/inflammatory.��
3. Extensive coronary artery calcifications.�
Physical Exam
Vital Signs/Labs
Vital Signs
Temp Pulse Resp BP Pulse Ox
36.5 C 85 20 99/62 92
11/05/24 08:16 11/05/24 08:56 11/05/24 08:16 11/05/24 08:56 11/05/24 08:16
11/04/24 11/05/24 11/06/24
06:59 06:59 06:59
Actual Weight 97.8 kg 97.9 kg
11/04/24 05:44
11/05/24 04:14
APTT Cancelled 11/03/24 10:45
Magnesium 2.3 mg/dl (1.6-2.3) 11/02/24 05:28
Triglycerides 81 mg/dl (10-149) 11/03/24 03:46
LDL Cholesterol, Calc 136 mg/dl 11/03/24 03:46
VLDL Cholesterol, Calc 16 mg/dl (0-30) 11/03/24 03:46
HDL Cholesterol 73 mg/dl 11/03/24 03:46
11/01/24
11:26
Kna-W-Vjjmyfzbptr Pept 238
LAB Results
11/02/24 11/02/24
11:10 18:35
Troponin I 1.650 H* 1.510 H*
Physical Exam
Constitutional: No acute distress
Cardiovascular: Rhythm & rate is regular
Respiratory: Respiratory effort normal and Rhonchi Present (mild L>R)
Neuro/Psych: AO x 3
Data Reviewed
-
Date of Service: November 05, 2024
Medical Decision Making: Reviewed Test Results
EKG: Tracing Personally Visualized and interpreted
Echo: Tracing Personally Visualized and interpreted
X-Ray/CT/US/MRI/NUC/PET: Image Personally Visualized and interpreted
Medical Tests (PFT, Pathology etc): Image Personally Visualized and interpreted
Labs: Labs Reviewed by me
[2024-11-05] MEDS: LASIX 20 MG IV (09:41)
[2024-11-05] MEDS: FLUSH (NSS) 1 FLUSH IV (09:42)
--- NOTE | 2024-11-05 10:59 | PTCARENOTE ---
received patient this am, awake, pleasant. able to ambulate to BR with assist of 1 and a walker. monitor shows NSR, VSS. patient still has dry, non productive cough. o2 sat 95%.
[2024-11-05] MEDS: ZESTRIL PO (11:08)
[2024-11-05] MEDS: ZETIA 10 MG PO (17:22)
[2024-11-05] MEDS: CRESTOR 20 MG PO (17:22)
[2024-11-05] MEDS: LOPRESSOR 25 MG PO (19:56)
[2024-11-05] MEDS: BENADRYL 25 MG PO (22:31)
[2024-11-05] MEDS: ANESTHETIC LOZENGE 1 LOZENGE PO (22:31)
[2024-11-05] MEDS: NORCO 7.5/325 1 TABLET PO (22:33)
--- NOTE | 2024-11-05 22:58 | PTCARENOTE ---
Pt rec'd at beginning of shift awake,alert calling for assist when going to bathroom. gait slightly unsteady, walker in use. bed alarm activated for safety. Sinus on telemetry. Exp wheeze noted with dry non prod cough. Medicated at HS with pain
medication in lower ext. feet and toes r/t [id number]-gccww syndrome
[2024-11-06] VITALS (20 sets, daily range): BP systolic 75–104; BP diastolic 52–70; PULSE 74–75; O2SAT 91; BMI 29.3
[2024-11-06 05:38] LABS: Hematocrit 43.2 % (39.0-52.0); Hemoglobin 14.6 g/dL (13.0-18.0); Mean Corp Hgb Conc. 33.8 g/dL (33.0-37.0); Mean Corpuscular Hgb 30.5 pg (27.0-31.0); Mean Corpuscular Volume 90.4 fL (80.0-94.0); Mean Platelet Volume 9.4 fL (7.4-10.4); Platelet Count 248 10^3/uL (130-400); Red Blood Cell Count 4.78 10^6/uL (4.70-6.10); Red Cell Dist. Width 12.7 % (11.5-14.5); White Blood Cell Count 12.6 10^3/uL (4.8-10.8)
[2024-11-06 06:02] LABS: Blood Urea Nitrogen 45 mg/dl (9-20); Calcium 9.1 mg/dl (8.4-10.2); Carbon Dioxide 26 mmol/L (22-30); Chloride 101 mmol/L (98-107); Estimated Creatinine Clearance 57 ml/min; Glucose 106 mg/dl (70-99); Magnesium 2.3 mg/dl (1.6-2.3); Potassium 3.8 mmol/L (3.5-5.1); Sodium 139 mmol/L (135-145); eGFR > 60.00
[2024-11-06] MEDS: LAMICTAL 200 MG PO (07:40)
[2024-11-06] MEDS: VITAMIN C 1000 MG PO (07:40)
[2024-11-06] MEDS: MUCINEX 600 MG PO (07:40)
[2024-11-06] MEDS: LOW STRENGTH ASPIRIN 81 MG PO (07:40)
[2024-11-06] MEDS: LOPRESSOR 25 MG PO (07:40)
[2024-11-06] MEDS: LYRICA 100 MG PO ×2 (07:40→15:44)
[2024-11-06] MEDS: NAMENDA 10 MG PO (07:40)
[2024-11-06] MEDS: SYNTHROID 25 MCG PO (07:40)
[2024-11-06] MEDS: ZESTRIL 5 MG PO (07:40)
[2024-11-06] MEDS: THERAGRAN 1 TABLET PO (07:40)
[2024-11-06] MEDS: VITAMIN D3 (cholecalciferol) 25 MCG PO (07:40)
[2024-11-06] MEDS: VITAMIN E 400 UNITS PO (07:40)
[2024-11-06] MEDS: ZOLOFT 100 MG PO (07:41)
--- NOTE | 2024-11-06 08:08 | W.PN.HOSP.TC ---
Addendum entered and electronically signed by Tracie Curz MD 11/07/24 06:17:
COPD witih exacerbation- resolved
non-RI Troponin elevation
-in setting of heart failure and COPD
Original Note:
Today's Communication/Plan
-
follow up PT/OT Evals
Follow up further cardiology recs
possible DC today
Assessment / Plan
Assessment / Plan
Mr. Momo Porter is a 79 yo man with hx tobacco use, seizure disorder, essential HTN, CAD presents to the ER with shortness of breath.
CT scan of chest 11/02: 1. No evidence of central or segmental pulmonary embolism.
2. Secretions within the trachea extending into the bilateral mainstem bronchi. There is a small groundglass opacities within the bilateral upper lobes which may be its infectious/inflammatory.
3. Extensive coronary artery calcifications.
TTE 11/02/24
Severely reduced left ventricular systolic function with severe hypokinesis of
the mid to apical wall segments and hyperdynamic basal wall segments. Estimated
left ventricular EF 20-25%.
No apical thrombus visualized with contrast enhancing agent.
Normal right ventricular size and function.
Mild mitral regurgitation.
Mild tricuspid regurgitation. Estimated PASP 45-50 mmHg.
Overall findings are suggestive of stress cardiomyopathy (Takotsubo's) versus
multivessel coronary artery disease.
Cardiac Cath 11/02/24
RECOMMENDATIONS:
1. Expectant management after cardiac catheterization via right radial approach.
2. GDMT for heart failure, will start low dose beta lesli.
3. Further workup for etiology of likely NICM cardiomyopathy.
4. Secondary prevention of coronary artery disease with ASA/statin and aggressive risk factor modification.
Heart Failure reduced EF 20-25% - new diagnosis
-Chest x-ray shows mild cardiomegaly, suggestion of mild pulmonary edema without evidence of pneumonia/pleural effusion
-s/p cardiac cath 11/02, results above. likely Takutsubo cardiomyopathy
-s/p diuresis (creatinine stable)
-continue new start aspirin/statin
-metop
-eventual start Entresto, SGLT2 inhibitor
# Acute asthma/COPD exacerbation
-appears to have resolved. Currently main issue appears to be cardiac (see above)
-Pt goes to Pul as outpt, input of Dr. Lopez appreciated, pul has signed off
-duonebs PRN
-s/p steroid course
NARESH
-2/2 contrast nephropathy (CTA and cardiac cath same day)
-continuing to improve - WNL this morning
#hx tobacco use
was a 2ppd for 20 yrs, quitting 25 yrs ago
# Nonischemic myocardial injury
-Troponin 0.095-->0.938-->1.65-->1.53
-EKG shows sinus tachycardia, incomplete left bundle branch block
-Trend troponins
Wrrqinc-Doevp-Qzceb syndrome
-Continue pregabalin
Seizure disorder
-Continue Lamictal
Essential hypertension
-Continue lisinopril
CAD
-Continue aspirin
Dementia/depression
-Continue sertraline, memantine
Hypothyroidism
-Continue levothyroxine
GERD
-Continue lansoprazole
Hyperlipidemia
-Continue Zetia
Call from Dr. Brown
pt to be changed to full admit
Full code
DVT prophylaxis�heparin
Regular diet
Anticipated Discharge: Within 24 hours
Subjective/Interval History
-
Date of Service: November 06, 2024
feeling better
denies shortness of breath
hoping to go home today
Objective Data
-
Labs:
Laboratory Results
11/06/24
05:19
WBC 12.6 H
Hgb 14.6
Hct 43.2
Plt Count 248
Sodium 139
Potassium 3.8
Chloride 101
Carbon Dioxide 26
BUN 45 H
Creatinine 1.2
Glucose 106 H
Calcium 9.1
Vital Signs:
Vital Signs
Temp Pulse Resp BP Pulse Ox
98.1 F 74 18 101/64 92
11/06/24 07:29 11/06/24 05:09 11/06/24 07:29 11/06/24 05:09 11/06/24 07:29
I&O
11/05/24 11/06/24 11/07/24
06:59 06:59 06:59
Intake Total 480 / 480 240 / 240
Output Total 950 / 950
Balance 480 / 480 -710 / -710
Review of Systems
-
History Source: Patient
All other systems: Reviewed and negative
Physical Exam
-
General: Well Developed, Well Nourished and No Apparent Distress
HEENT: Normocephalic, Atraumatic and Moist Mucous Membranes
Respiratory: Wheezes (mid-end expiraotry high freq wheeze) and Rhonchi (scattered rhonch rt lower lung field)
Cardiac: Regular Rhythm, S1/S2 and Tachycardic
GI: Soft, Nontender and Nondistended
Musculoskeletal: No Clubbing, No Cyanosis and No Edema
Neuro: Awake and Alert
Data Reviewed
-
Diagnostic Radiology: Report Reviewed by me
Labs: Labs Reviewed by me
--- NOTE | 2024-11-06 10:13 | PN.CDI ---
CDI
- -
CDI:
Physician Documentation Request
Admit Date: 11/02/24 12:07
Dear Doctor Nancy,
Patient presented to ED for concerns of shortness of breath. Troponin noted to be elevated.
Hospitalist progress notes state 'Nonischemic myocardial injury'
Cardiology consultation states '.Labs are concerning for rising troponin initially 0.095 on arrival now up to 1.65. Overall picture was initially concerning for PE versus ACS given shortness of breath and rising troponin...'
11/04 cardio note states 'Type II WI: setting of new CMY and acute chf'
In an attempt to clarify potentially conflicting documentation, please clarify the etiology of the elevated troponin after careful study:
Type I WI
Nonischemic myocardial injury
Other
Use of terms such as suspected, likely, concern for, or probable (associated with a specific diagnosis that is being evaluated, monitored, or treated as if it exists) are acceptable and can be coded in the inpatient setting, when documented at the
time of discharge.
Thank you,
Aria Diana RN, BSN
CDI Specialist
tiger text
Please use your independent medical judgment in providing your response.
--- NOTE | 2024-11-06 10:26 | PN.CDI ---
CDI
- -
CDI:
Physician Documentation Request
Admit Date: 11/02/24 12:07
Dear Doctor Nancy,
Pulmonary consultation states: 'COPD, last seen at [facility] 05/2024 Most recent pulmonary function test was normal, no evidence of obstruction. Mildly reduced diffusing capacity noted. Continued off maintenance inhaler therapy/albuterol PRN........Could
be exacerbation of COPD, but this is less likely.'
Hospitalist progress notes state ' Acute asthma/COPD exacerbation '
Please clarify COPD status:
COPD with exacerbation
COPD without exacerbation
Other
Use of terms such as suspected, likely, concern for, or probable (associated with a specific diagnosis that is being evaluated, monitored, or treated as if it exists) are acceptable and can be coded in the inpatient setting, when documented at the
time of discharge.
Thank you,
Aria Diana RN, BSN
CDI Specialist
tiger text
Please use your independent medical judgment in providing your response.
--- NOTE | 2024-11-06 11:04 | CM ---
Reviewed chart. Met with M. and Mrs. Porter to review discharge plans. Reviewed with them the therapy recommendation of SNF/Rehab. At this time he is declining SNF/Rehab. He is agreeable to VNA Services. Referral made to [facility]
yesterday. Medical work-up in progress. The discharge plan is to return home with his spouse and [facility] when medically stable.
--- NOTE | 2024-11-06 11:23 | W.PN.CD ---
Today's Communication / Plan
-
Transition metoprolol to succinate, 12.5 every morning and 25 mg every afternoon.
Sent home on furosemide 20 mg as needed for weight gain of 3 pounds in a day or 5 pounds in 5 days.
Will hold lisinopril on discharge and resume as an outpatient if able.
Cardiac rehab consult.
Will arrange follow-up.
Okay for discharge.
Impression / Plan
-
# HFrEF:
EF 20-25%, findings suggestive of Takotsubo's cardiomyopathy (Coronary catheterization showed diffuse nonobstructive disease. Troponin peaked at 1.6 which is very out of proportion to the degree of systolic dysfunction)
LVEDP 29 Good response to IV Lasix, but with contrast nephropathy held yesterday, Cr improved today, will give diuresis
metoprolol to 25 BID, Transition metoprolol succinate for discharge
Hold lisinopril and MRA with hypotension
Cannot afford Entresto and SGLT2i.
Will add MRA if blood pressure room as op.
Will send home on daily Lasix as needed for weight greater than 3 pounds in a day or 5 pounds in 5 days.
cardiac rehab c/s
Will set for follow-up
#NARESH in the setting of cardiac catheterization and CT PE on the same day. Timing is consistent with contrast nephropathy.
-improved
-Continue to monitor creatinine
#Nonobstructive CAD
-recommend aggressive modification of risk factors.
-will continue high dose statin, goal LDL<55
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
-pk 1.6
-will continue aspirin
#HTN:
-stable overall, monitor
-will hold lisinopril for now as above
#HLD:
-on zetia
-Statin started
High risk situation with acute kidney injury and severe cardiomyopathy.
Subjective:
Coughing significantly improved. Feeling well walking to and from bathroom. No chest discomfort.
TTE 11/02/2024:
Severely reduced left ventricular systolic function with severe hypokinesis of
the mid to apical wall segments and hyperdynamic basal wall segments. Estimated
left ventricular EF 20-25%.
No apical thrombus visualized with contrast enhancing agent.
Normal right ventricular size and function.
Mild mitral regurgitation.
Mild tricuspid regurgitation. Estimated PASP 45-50 mmHg.
Overall findings are suggestive of stress cardiomyopathy (Takotsubo's) versus
multivessel coronary artery disease.
Cath 11/02/24
HEMODYNAMIC DATA
LV 111/20 (EDP 29) mmHg
AO 119/82 (mean 98) mmHg
-
CONCLUSIONS
1. There is obstructive coronary artery disease in a right dominant system, however, no clear culprit lesion to explain severe cardiomyopathy with EF 25%. LAD is only borderline hemodynamically significant, diagonal branch with possible hazy lesion
has TIMI3 flow, RCA disease moderate, and severe distal LCx disease is a very small territory. Overall, picture more consistent with non-ischemic etiology of severe cardiomyopathy.
2. Elevated left ventricular filling pressure and no aortic stenosis on pullback.
RECOMMENDATIONS:
1. Expectant management after cardiac catheterization via right radial approach.
2. GDMT for heart failure, will start low dose beta lesli.
3. Further workup for etiology of likely NICM cardiomyopathy.
4. Secondary prevention of coronary artery disease with ASA/statin and aggressive risk factor modification.
CTPE 11/02/24IMPRESSION:��
1. No evidence of central or segmental pulmonary embolism.��
2. Secretions within the trachea extending into the bilateral mainstem bronchi. There is a small
groundglass opacities within the bilateral upper lobes which may be its infectious/inflammatory.��
3. Extensive coronary artery calcifications.�
Physical Exam
Vital Signs/Labs
Vital Signs
Temp Pulse Resp BP Pulse Ox
98.1 F 73 18 104/65 92
11/06/24 07:29 11/06/24 09:00 11/06/24 07:29 11/06/24 07:32 11/06/24 07:29
11/05/24 11/06/24 11/07/24
06:59 06:59 06:59
Actual Weight 97.9 kg 97.8 kg
11/06/24 05:19
11/06/24 05:19
APTT Cancelled 11/03/24 10:45
Magnesium 2.3 mg/dl (1.6-2.3) 11/06/24 05:19
Triglycerides 81 mg/dl (10-149) 11/03/24 03:46
LDL Cholesterol, Calc 136 mg/dl 11/03/24 03:46
VLDL Cholesterol, Calc 16 mg/dl (0-30) 11/03/24 03:46
HDL Cholesterol 73 mg/dl 11/03/24 03:46
11/01/24
11:26
Ebr-L-Ppghmbbtqcb Pept 238
Physical Exam
Cardiovascular: Rhythm & rate is regular, Pedal edema is absent, JVD pressure is normal, Systolic murmur absent and Diastolic murmur absent
Respiratory: Respiratory effort normal, Lungs clear to auscul., Wheeze Absent, Crackles Absent and Rhonchi Absent
Neuro/Psych: AO x 3
Data Reviewed
-
Date of Service: November 06, 2024
Medical Decision Making: Review of Case with other Provider (d/w dr lauren arriola for dc)
--- NOTE | 2024-11-06 15:17 | W.DS.TRANS ---
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
-
Discharge Instructions:
Discharge Diagnosis/Procedures cardiac catheterization, heart failure
exacerbation
Diet 2 Gram Sodium,Restrict fluids to 48 oz
Activity As tolerated
Driving Restrictions As prior to admission
Bathing Restrictions None
Blood Work BMP in one week
Other Services VN,PT,OT
Specialty Instructions Weigh Daily
Instructions:
Stand-Alone Forms: DC Instructions- Cath/EP Lab
Changes to Home Medications: Yes
Discharge Medications:
DC Medications w/original date entered in [employer]
albuterol sulfate 90 mcg/actuation aerosol inhaler 2 puff inhalation R Q4HPRN PRN sob 09/04/16
cholecalciferol (vitamin D3) 25 mcg (1,000 unit) capsule (Vitamin D3) 1,000 unit PO DAILY 09/04/16
levothyroxine 25 mcg tablet 25 mcg PO DAILY 09/04/16
sertraline 100 mg tablet 100 mg PO DAILY 09/04/16
diphenhydramine HCl 25 mg tablet (Sleep Aid (diphenhydramine)) 25 mg PO HS 11/01/24
ezetimibe 10 mg tablet (Zetia) 10 mg PO QPM 11/01/24
lamotrigine 200 mg tablet (Lamictal) 200 mg PO BID 11/01/24
lansoprazole 15 mg capsule,delayed release 15 mg PO DAILYPRN PRN gerd 11/01/24
memantine 10 mg tablet 10 mg PO BID 11/01/24
pregabalin 100 mg capsule (Lyrica) 100 mg PO TID 11/01/24
therapeutic multivitamin 1 tab PO DAILY 11/01/24
vitamin E 268 mg (400 unit) capsule 268 mg PO DAILY 11/01/24
albuterol sulfate 90 mcg/actuation aerosol inhaler 2 puff inhalation Q6H PRN shortness of breath or wheezing #6.7 grams 11/06/24
aspirin 81 mg chewable tablet 81 mg PO DAILY #30 tabs 11/06/24
furosemide 20 mg tablet 20 mg PO DAILY PRN Weight gain #30 tabs 12/17/24
hydrocodone 10 mg-acetaminophen 325 mg tablet 1 tab PO TID PRN Pain #0 tabs 11/06/24
metoprolol succinate 25 mg tablet,extended release 24 hr 12.5 mg (1/2 x 25 mg) PO DAILY #30 tabs 11/06/24
metoprolol succinate 25 mg tablet,extended release 24 hr 25 mg PO DAILY@2000 #30 tabs 11/06/24
rosuvastatin 20 mg tablet 20 mg PO QPM #30 tabs 11/06/24
Home Medication Changes
Stop Aspirin 325mg. This is replaced with 81mg daily.
Stop Lisinopril - this may be resumed as outpatient based upon your blood pressure readings.
You are started on Metoprolol XL: 12.5mg in the morning and 25mg in evenings
You are started on Rosuvastatin for hyperlipidemia
You are prescribed Lasix to take as needed if weight gain of 3 pounds in a day or 5 pounds in 5 days.
Only take [place] (Hydrocodone - Acetaminophen) as needed.
Pending Results: No
--- NOTE | 2024-11-06 15:17 | W.DCSUMMARY ---
Discharge Summary
Discharge Data
Date of Admission: 11/02/24
Date of Discharge: 11/06/24
-
Pending Results: No
Hospital Course
Discharging Physician : Dr. Tracie Cruz
Disposition : Home with Home Health
Primary care physician : Dr. Karlee Tenorio
Principal Discharge diagnosis : Takotsubo's cardiomyopathy
Hospital Course :
Mr. Momo Porter is a 79 yo man with hx tobacco use, seizure disorder, essential HTN, CAD presents to the ER on 11/01 complaining of shortness of breath x 3 days. He was found to be tachypneic with diffuse wheezing, SpO2 88% on RA. CXR with
evidence of pulmonary edema. Patient was admitted to medicine with Pulmonary and Cardiology consulting for treatment of COPD and heart failure.
TTE with EF 20-25%; severely reduced LV systolic function with severe hypokinesis of mid to apical wall segments. He underwent cardiac cath showing non-obstructive coronary disease. He was diuresed with drop in weight from 112.5 kg to 97.8 kg.
Per Cardiology recommendations, he is discharged on Lasix 20mg PO daily PRN weight gain. He is newly started on Metop XL, Lisinopril held for low BP. He will follow up closely with Cardiology.
He is started on statin for CAD, aspirin dosing decreased to 81mg.
Patient completed a steroids course while in the hospital and was seen by Pulmonary and referred on DC for reactive airway disease.
No further wheezing on exam at discharge, he feels ready for discharge. PT recommended SNF but patient refuses and is discharged with .
Time spent on discharge was 35 minutes.
Important imaging findings :
CT scan of chest 11/02: 1. No evidence of central or segmental pulmonary embolism.
2. Secretions within the trachea extending into the bilateral mainstem bronchi. There is a small groundglass opacities within the bilateral upper lobes which may be its infectious/inflammatory.
3. Extensive coronary artery calcifications.
TTE 11/02/24
Severely reduced left ventricular systolic function with severe hypokinesis of
the mid to apical wall segments and hyperdynamic basal wall segments. Estimated
left ventricular EF 20-25%.
No apical thrombus visualized with contrast enhancing agent.
Normal right ventricular size and function.
Mild mitral regurgitation.
Mild tricuspid regurgitation. Estimated PASP 45-50 mmHg.
Overall findings are suggestive of stress cardiomyopathy (Takotsubo's) versus
multivessel coronary artery disease.
Procedure findings :
Cardiac Cath 11/02/24
CONCLUSIONS
1. There is obstructive coronary artery disease in a right dominant system, however, no clear culprit lesion to explain severe cardiomyopathy with EF 25%. LAD is only borderline hemodynamically significant, diagonal branch with possible hazy lesion
has TIMI3 flow, RCA disease moderate, and severe distal LCx disease is a very small territory. Overall, picture more consistent with non-ischemic etiology of severe cardiomyopathy.
2. Elevated left ventricular filling pressure and no aortic stenosis on pullback.
RECOMMENDATIONS:
1. Expectant management after cardiac catheterization via right radial approach.
2. GDMT for heart failure, will start low dose beta lesli.
3. Further workup for etiology of likely NICM cardiomyopathy.
4. Secondary prevention of coronary artery disease with ASA/statin and aggressive risk factor modification.
Discharge Plan
-
Patient Disposition: Home with Home Care
Discharge Diagnosis/Procedures: cardiac catheterization, heart failure exacerbation
Diet: 2 Gram Sodium and Restrict fluids to 48 oz
Activity: As tolerated
Driving Restrictions: As prior to admission
Bathing Restrictions: None
Blood Work: BMP in one week
Other Services: VN, PT and OT
Specialty Instructions: Weigh Daily- Call MD for wt gain/loss 3 lbs overnight/5 lbs in 1 week
Stand Alone Forms: DC Instructions- Cath/EP Lab
Referrals:
[facility] [Outside]
Marianela Khan CRNP [Specified Professional Personl] - 12/04/24 10:00 am (Cardiology followup appointment)
Kasia,Mili Chen, DO [Active] - in four to six weeks
Karlee Tenorio MD [Family Provider] - in less than 1 week
Additional Discharge Medication Instructions: Stop Aspirin 325mg. This is replaced with 81mg daily.
Stop Lisinopril - this may be resumed as outpatient based upon your blood pressure readings.
You are started on Metoprolol XL: 12.5mg in the morning and 25mg in evenings
You are started on Rosuvastatin for hyperlipidemia
You are prescribed Lasix to take as needed if weight gain of 3 pounds in a day or 5 pounds in 5 days.
Only take [place] (Hydrocodone - Acetaminophen) as needed.
Prescriptions:
New
aspirin 81 mg Tablet,Chewable
81 mg PO DAILY Qty: 30 0RF
furosemide 20 mg Tablet
20 mg PO DAILY PRN (Reason: Weight gain) Qty: 30 0RF
rosuvastatin 20 mg Tablet
20 mg PO QPM Qty: 30 0RF
metoprolol succinate 25 mg Tablet Extended Release 24 Hr
25 mg PO DAILY@2000 Qty: 30 0RF
metoprolol succinate 25 mg tablet extended release 24 hr
12.5 mg PO DAILY Qty: 30 0RF
albuterol sulfate 90 mcg/actuation HFA aerosol inhaler
2 puff inhalation Q6H PRN (Reason: shortness of breath or wheezing) Qty: 6.7 0RF
Continued
sertraline 100 MG tablet
100 mg PO DAILY
levothyroxine 25 MCG tablet
25 mcg PO DAILY
albuterol sulfate 1 PUFF HFA aerosol inhaler
2 puff inhalation R Q4HPRN PRN (Reason: sob)
cholecalciferol (vitamin D3) [Vitamin D3] 1,000 UNIT capsule
1,000 unit PO DAILY
lamotrigine [Lamictal] 200 mg Tablet
200 mg PO BID
vitamin E 268 mg (400 unit) Capsule
268 mg PO DAILY
therapeutic multivitamin Tablet
1 tab PO DAILY
diphenhydramine HCl [Sleep Aid (diphenhydramine)] 25 mg Tablet
25 mg PO HS
lansoprazole 15 mg Capsule,Delayed Release(Dr/Ec)
15 mg PO DAILYPRN PRN (Reason: gerd)
ezetimibe [Zetia] 10 mg Tablet
10 mg PO QPM
memantine 10 mg Tablet
10 mg PO BID
pregabalin [Lyrica] 100 mg Capsule
100 mg PO TID
Changed
hydrocodone-acetaminophen 10-325 mg Tablet
1 tab PO TID PRN (Reason: Pain) Qty: 0 0RF
Discontinued
ascorbic acid (vitamin C) [Vitamin C] 1,000 MG tablet
1,000 mg PO DAILY
aspirin 325 MG tablet
325 mg PO DAILY
lisinopril 10 mg Tablet
15 mg PO DAILY
Discharge Orders:
Discharge Patient (As Directed); Ordered 11/06/24
Ordered By: Tracie Cruz
Care Plan Goals
Care Plan Goals:
Problem: Readiness for enhanced knowledge related to diagnosis and treatment plan
Goal: Understand your diagnosis and treatment plan needs, including medications if applicable.
Instructions: Know your diagnosis, underlying causes and treatment plan options, including medications if applicable. Consult with your health care team to learn about your diagnosis and treatment plan, including medications if applicable.
Discharge Date and Time
Print Language: BELARUSIAN
--- NOTE | 2024-11-06 16:28 | PTCARENOTE ---
Patient discharge to home. Pharmacy updated to [facility] in [place], all new scripts are electronically sent there. Dr. [place] notified with pharmacy changes. IV and telemetry removed. Discharge teaching completed with patient, he verbalized
understanding. Patient escorted to car. driving him home today.
--- NOTE | 2024-12-03 12:32 | W.HF.CON ---
Heart Failure
- LV Function
Left ventricular function study result: LV Ejection fraction </= 35%
Ejection Fraction Percentage: 20-25
- ARNI
Patient already on ARNI: No
Heart Failure ARNI Contraindication: Acute Renal Failure, Patient Refusal
- ACEI/ARB
Patient already on ACEI/ARB: No
Heart Failure ACEI/ARB Contraindication: Acute Renal Failure, Hypotension
- Beta Kiesha
Patient already on Evidence Based Beta Kiesha: Yes
- Mineralocorticord Receptor Antagonist
Patient already on MRA: No
Heart Failure MRA Contraindication: Acute Renal Insufficiency, Hypotension
- SGLT-2 Inhibitor
Patient already on SGLT-2 Inhibitor: No
Heart Failure SGLT-2 Inhibitor Contraindication: Patient Refusal
- NYHA CHF Classification
NYHA CHF Classification Level: Class III - Symptoms w/ min exertion, interferes w/ nml daily activity
- ACC/AHA Stage
ACC/AHA Stage: Stage C: Symptomatic Heart Failure
== END 2024-11-06 16:46 | disposition home health service (06) | DRG 286 ==
LOC: IVU 12:07
PROVIDERS: Internal Medicine; Nurse Practitioner; Nurse Practitioner Gerontology; Physician Assistant; Registered Nurse; Student in an Organized Health Care Education/Training Program; ADMITTING PHYSICIAN Hospitalist; ATTENDING PHYSICIAN Student in an Organized Health Care Education/Training Program; CONSULT PHYSICIAN Internal Medicine; CONSULT PHYSICIAN Internal Medicine Cardiovascular Disease; EMERGENCY PHYSICIAN Emergency Medicine; FAMILY PHYSICIAN Family Medicine
PROC: 4A033BC Measurement of Arterial Pressure, Coronary, Percutaneous Approach (ICD-10-PCS; 2024-11-02)
PROC: 4A023N7 Measurement of Cardiac Sampling and Pressure, Left Heart, Percutaneous Approach (ICD-10-PCS; 2024-11-02)
PROC: B2111ZZ Fluoroscopy of Multiple Coronary Arteries using Low Osmolar Contrast (ICD-10-PCS; 2024-11-02)
DX: I51.81 Takotsubo syndrome (principal); I50.21 Acute systolic (congestive) heart failure; J44.1 Chronic obstructive pulmonary disease with (acute) exacerbation; F02.83 Dementia in other diseases classified elsewhere, unspecified severity, with mood disturbance; N17.9 Acute kidney failure, unspecified; I5A Non-ischemic myocardial injury (non-traumatic); I11.0 Hypertensive heart disease with heart failure; I25.10 Atherosclerotic heart disease of native coronary artery without angina pectoris; Z87.891 Personal history of nicotine dependence; G40.909 Epilepsy, unspecified, not intractable, without status epilepticus; Z88.0 Allergy status to penicillin; Z11.52 Encounter for screening for COVID-19; I44.7 Left bundle-branch block, unspecified; G60.0 Hereditary motor and sensory neuropathy; G30.9 Alzheimer's disease, unspecified; F32.9 Major depressive disorder, single episode, unspecified; E03.9 Hypothyroidism, unspecified; K21.9 Gastro-esophageal reflux disease without esophagitis; E78.00 Pure hypercholesterolemia, unspecified; Z79.82 Long term (current) use of aspirin; Z79.890 Hormone replacement therapy; Z79.899 Other long term (current) drug therapy; G47.33 Obstructive sleep apnea (adult) (pediatric); N40.0 Benign prostatic hyperplasia without lower urinary tract symptoms; Z85.828 Personal history of other malignant neoplasm of skin; D53.9 Nutritional anemia, unspecified; Z86.0100 Personal history of colon polyps, unspecified; G89.29 Other chronic pain
CPT/HCPCS: 71045; 71046; 71275; 80048; 80061; 80069; 80076; 83036; 83735; 83880; 84145; 84484; 85025; 85027; 85347; 85730; 87502; 87811; 93005; 93306; 93458; 93799; 94640; 96374; 97163; 97167; 99285; C1769; C1887; C1894; Q9950; Q9967

== ENCOUNTER → 2024-12-06 09:44 | Outpatient (REF) | payer OTHER, SELFPAY ==
[2024-12-06 12:06] LABS: ALT (SGPT) 13 U/L (0-50); AST (SGOT) 25 U/L (17-59); Blood Urea Nitrogen 9 mg/dl (9-20); Calcium 9.3 mg/dl (8.4-10.2); Carbon Dioxide 28 mmol/L (22-30); Chloride 104 mmol/L (98-107); Glucose 85 mg/dl (70-99); HDL Cholesterol 44 mg/dl; LDL Cholesterol, Calculated 71 mg/dl; Potassium 4.2 mmol/L (3.5-5.1); Sodium 140 mmol/L (135-145); Total Cholesterol 141 mg/dl (50-199); Triglyceride 132 mg/dl (10-149); Very Low Density Lipoprotein 26 mg/dl (0-30); eGFR > 60.00
== END ==
LOC: REG 09:44
PROVIDERS: ATTENDING PHYSICIAN Family Medicine; FAMILY PHYSICIAN Nurse Practitioner
DX: Z09 Encounter for follow-up examination after completed treatment for conditions other than malignant neoplasm (principal); E78.5 Hyperlipidemia, unspecified
CPT/HCPCS: 36415; 80048; 80061; 84450; 84460

== ENCOUNTER 2025-01-07 23:31 | Inpatient (IN) | payer OTHER, SELFPAY ==
[2025-01-07 17:27] VITALS: BP 114/74
[2025-01-07 20:13] VITALS: BP 129/81
[2025-01-07 20:34] VITALS: BMI 28.3
[2025-01-07 20:39] LABS: % Basophils 0.7 % (0-2); % Eosinophils 2.1 % (0-6); % Immature Granulocytes 0.4 % (0-0.5); % Lymphocytes 17.9 % (20.5-51.1); % Monocytes 9.5 % (1.7-9.3); % Neutrophils 69.4 % (42.2-75.2); Absolute Basophils 0.1 10^3/uL (0-0.2); Absolute Eosinophils 0.2 10^3/uL (0-0.7); Absolute Lymphocytes 1.3 10^3/uL (1.2-3.4); Absolute Monocytes 0.7 10^3/uL (0.1-0.6); Absolute Neutrophils 5.1 10^3/uL (1.4-6.5); Hematocrit 41.3 % (39.0-52.0); Hemoglobin 13.5 g/dL (13.0-18.0); Mean Corp Hgb Conc. 32.7 g/dL (33.0-37.0); Mean Corpuscular Hgb 30.1 pg (27.0-31.0); Mean Platelet Volume 9.2 fL (7.4-10.4); Nucleated Red Blood Cells % 0 % (-); Platelet Count 219 10^3/uL (130-400); Red Blood Cell Count 4.49 10^6/uL (4.70-6.10); Red Cell Dist. Width 12.5 % (11.5-14.5); White Blood Cell Count 7.3 10^3/uL (4.8-10.8)
[2025-01-07 20:50] LABS: Blood Urea Nitrogen 12 mg/dl (9-20); Calcium 9.3 mg/dl (8.4-10.2); Carbon Dioxide 27 mmol/L (22-30); Chloride 103 mmol/L (98-107); Estimated Creatinine Clearance 57 ml/min; Glucose 101 mg/dl (70-99); Potassium 3.8 mmol/L (3.5-5.1); Sodium 138 mmol/L (135-145); eGFR > 60.00
--- NOTE | 2025-01-07 21:01 | ED.GENMED ---
History of Present Illness
General
Chief Complaint: Fall
Source: patient and spouse
Exam Limitations: none
Time Seen by Provider: 01/07/25 19:50
History of Present Illness
History of Present Illness:
79-year-old male presents with episodes of tremor earlier today and a fall. No LOC. He had some shuffling gait issues trouble moving forward. Gait and equilibrium have progressed over the last 2 weeks. His Lamictal dose has been increased over
this time.
Past History
Past History
ED Past Medical History: Asthma and COPD
ED Past Surgical History: Orthopedic, Urological and Other (Hernia repair)
Social History
Tobacco: Former smoker
Review of Systems
Review of Systems
All Other Systems: Not applicable
Respiratory: Reports no symptoms
Cardiac: Reports no symptoms
Phy Exam
Physical Exam
Physical Exam:
GENERAL: Alert and oriented in no apparent distress
EYE: Orbits normal.
NECK: Supple, no significant adenopathy.
ENT: Pharynx without erythema
CARDIAC: Regular rate and rhythm without any obvious murmurs.
LUNGS: Clear breath sounds,normal
ABDOMEN: Soft, without focal tenderness or distention
NEUROLOGICAL: Alert and oriented , grossly non-focal. Shuffled gait. Unsteady. Wide-based. Required assistance walking. Questionable slight cogwheeling
SKIN: Warm and dry, no rash or lesion, no discoloration, skin intact.
MUSCULOSKELETAL: No edema,no deformity.Good color
PSYCH: Normal and appropriate interaction.
Course
Orders/Labs/Results
Orders:
Orders
01/07/25 20:01
Electrocardiogram (*1) Stat
Reason for Study: Other
Other Reason for Exam: neuro symptoms
CT Head W/o Iv Contrast Urgent
Comment:
Reason For Exam: Possible seizure mild head injury
Cardiac Monitoring- Treatment ONCE
EKG- Treatment ONCE
IV Insert/Care/Rem.- Treatment PRN
01/07/25 20:28
Basic Metabolic Panel Urgent
Complete Blood Count/With Diff Urgent
Abnormal Lab Results
01/07/25
20:28
RBC 4.49 L 10^6/uL
(4.70-6.10)
MCHC 32.7 L g/dL
(33.0-37.0)
Absolute Monos (auto) 0.7 H 10^3/uL
(0.1-0.6)
Lymphocytes % 17.9 L %
(20.5-51.1)
Monocytes % 9.5 H %
(1.7-9.3)
Glucose 101 H mg/dl
(70-99)
01/07/25 20:28
01/07/25 20:28
Vital Signs
Initial and Last Documented VS:
Initial Vital Signs
Temp Pulse Resp BP Pulse Ox
98.3 F 83 18 114/74 96
01/07/25 17:27 01/07/25 17:27 01/07/25 17:27 01/07/25 17:27 01/07/25 17:27
Last Documented Vital Signs
Temp Pulse Resp BP Pulse Ox
98.3 F 71 19 129/81 95
01/07/25 17:27 01/07/25 21:00 01/07/25 21:00 01/07/25 20:13 01/07/25 21:00
MDM/Problems Addressed
Differential Diagnosis Includes:
Patient's disequilibrium could be related to Lamictal. In addition today's episode theoretically could have been a near syncopal episode. Best I can tell his EF is very low. Given the ataxia he clearly would fall on his own and warrants inpatient
workup possible Parkinson's issue.
*Radiology
Radiology exam reviewed: radiology read reviewed (Negative)
*Pulse Oximetry
Patient hypoxic: no
*EKG
Interpreted by ED Provider?: Yes
Interpretation: abnormal
Comparison EKG: changes noted
Heart Rate: 70
Rate: normal
Rhythm: sinus
[place]: left axis deviation
Interval: normal interval
QRS Pattern: poor R-wave progression
Ischemia: T-wave inversion
*Critical Care Note
Total Time (30-74mins, 75-104mins- exclusive of procedures): Not Applicable
Data Reviewed
Review of Other/Old Records Reveals: Labs, Records, Radiology Studies, Testing and Discharge Summary
Source: patient and records
Update Note
Update Note:
Patient's symptoms and ataxia may be related to Lamictal. Possibly Parkinson's. As for this episode today could have been a seizure. Doubt syncope although his EF is very low. Would have to consider arrhythmia given the low EF. Warrants
inpatient management
ED Attending Note
-
Portions of this chart may have been created with voice recognition software.� Occasional wrong word or��sound alike� substitutions may have occurred due to the inherent limitations of voice recognition software.
Discharge Plan
Departure
Patient Disposition: Admit
Date of Disposition: 01/07/25
Time of Disposition: 22:06
Admit to: Telemetry
Presentation/result/management discussed w/ accepting MD/DO: Hospitalist
Discharge Problem:
Severe ataxia, Possible seizure, Possible lamotrigine side effect, To consider near syncope, Low ejection fraction
Prescriptions:
No Action
sertraline 100 MG tablet
100 mg PO DAILY
levothyroxine 25 MCG tablet
25 mcg PO DAILY
albuterol sulfate 1 PUFF HFA aerosol inhaler
2 puff inhalation R Q4HPRN PRN (Reason: sob)
cholecalciferol (vitamin D3) [Vitamin D3] 1,000 UNIT capsule
1,000 unit PO DAILY
lamotrigine [Lamictal] 200 mg Tablet
200 mg PO BID
vitamin E 268 mg (400 unit) Capsule
268 mg PO DAILY
therapeutic multivitamin Tablet
1 tab PO DAILY
diphenhydramine HCl [Sleep Aid (diphenhydramine)] 25 mg Tablet
25 mg PO HS
lansoprazole 15 mg Capsule,Delayed Release(Dr/Ec)
15 mg PO DAILYPRN PRN (Reason: gerd)
ezetimibe [Zetia] 10 mg Tablet
10 mg PO QPM
memantine 10 mg Tablet
10 mg PO BID
pregabalin [Lyrica] 100 mg Capsule
100 mg PO TID
aspirin 81 mg Tablet,Chewable
81 mg PO DAILY Qty: 30 0RF
furosemide 20 mg Tablet
20 mg PO DAILY PRN (Reason: Weight gain) Qty: 30 0RF
rosuvastatin 20 mg Tablet
20 mg PO QPM Qty: 30 0RF
hydrocodone-acetaminophen 10-325 mg Tablet
1 tab PO TID PRN (Reason: Pain) Qty: 0 0RF
albuterol sulfate 90 mcg/actuation HFA aerosol inhaler
2 puff inhalation Q6H PRN (Reason: shortness of breath or wheezing) Qty: 6.7 0RF
metoprolol succinate 25 mg tablet extended release 24 hr
25 mg PO BID Qty: 60 0RF
Rx Instructions:
Take 1/2 tab (12.5mg) in mornings and 1 tab (25mg) in evenings
Referrals:
Karlee Tenorio MD [Family Provider] -
Interventions
Interventions:
*Risk Screen - Suicide Last Done: 01/07/25 21:03
*General Assessment Last Done: 01/07/25 21:03
*Neglect/Abuse Screening Last Done: 01/07/25 21:03
ED- Fall Risk Assessment Last Done: 01/07/25 21:03
*ED COVID-19 Vaccine History Last Done: 01/07/25 21:03
ED-Musculoskeletal Assessment Last Done: 01/07/25 21:03
ED- Neurological Assessment Last Done: 01/07/25 21:03
ED-Skin Assessment Last Done: 01/07/25 21:03
Discharge Date and Time
Print Language: GREENLANDIC
[2025-01-07 21:37] VITALS: BP 147/67
[2025-01-07 22:00] VITALS: BP 131/90
--- NOTE | 2025-01-07 22:57 | HPS.HSE ---
Family Physician
-
Family Physician: Karlee Tenorio
Chief Complaint
-
Fall
History of Present Illness
This is a 79-year-old with past medical history significant for seizure disorder on lamotrigine, hypertension, CAD, tobacco use, recent admission for acute pulmonary edema and found to have severely reduced LV systolic function at 20 to 25% status
post cath showing no obstructive coronary artery disease, who presents to Emergency Department following a fall at home.
Patient recent hospitalization and discharged notable for Takotsubo cardiomyopathy EF 20 to 25%. Started on Lasix 20 mg daily as needed for weight gain. Is discharged which was 9 7.8 kg. He was also started on metoprolol lisinopril held for low
BP.
Patient and family reports about 1 week of tremors. Reports that he does have some tremors prior to that but over the last 2 weeks they have increased in frequency and intensity. He had an increase in his lamotrigine 2 weeks ago and family
associated with this increase in lamotrigine with the increase in tremors. He is completely aware of her tremors and has no loss of consciousness. The tremor also has resulted in difficulty with ambulation where he feels that he cannot walk
forward without falling. He has a sense of falling when he tries to movement for direction and he feels he is going to fall backwards. He has not had any fall from a standing height at home. Today he was sitting down at around dinner when he
started having tremors. He had severe or large amplitude tremors of his upper and lower extremities. He was aware and wanted to alert his today's events so that she can call EMS but was unable to make the was out. He gets very anxious with
these episodes. He ultimately fell from his chair to the floor. He complained of left-sided thoracic pain after the fall. He was alert and oriented immediately after. EMS called and patient was brought to the emergency department as possible not
standing up. He denies cough wheezing or shortness of breath. Denies other flulike symptoms. Denies any fevers or chills. Reports difficulty initiating urination but denies dysuria. Flank pain or hematuria.
He reports multiple types of dizziness since his discharge. He reports feeling lightheaded with standing up. Reports vertigo. Denies any palpitations. Denies having chest pain. Denies any evaluation wrist swelling orthopnea or PND.
In the emergency department blood pressure was 110/80 with a pulse of 71 satting 95% on room air. He was afebrile. CBC was unremarkable. Interestingly his electrolytes and creatinine were all in the normal range unremarkable. CT of the head
shows no acute interval changes. ECG shows normal sinus rhythm at a rate of 70.
Medical History
Past Medical History
Past Medical History: Reports CHF (Takotsubo cardiomyopathy, EF 20 to 25%) and Other (Dhgzmce-Olgks-Edejn syndrome, seizure disorder, asthma, COPD, hypertension,)
Past Surgical History: Reports None
Social History
Tobacco: Former Smoker
Alcohol: None
Drug: None
Personal:
Living: With Family
Employment: Retired
Family History
Family History: Not pertinent
Allergies / Home Medications
Allergies reflects when Allergies were last updated in [employer].
Home Medications with original date entered in [employer]
Allergy/Medication List:
Allergies
Allergy/AdvReac Type Severity Reaction Status Date / Time
Benzodiazepines Allergy SIMVA - Verified 11/01/24 10:17
headache,blurry
vision
Penicillins Allergy Hives Verified 11/01/24 10:17
Home Medications
cholecalciferol (vitamin D3) 25 mcg (1,000 unit) capsule (Vitamin D3) 1,000 unit PO DAILY 09/04/16
levothyroxine 25 mcg tablet 25 mcg PO DAILY 09/04/16
sertraline 100 mg tablet 100 mg PO DAILY 09/04/16
diphenhydramine HCl 25 mg tablet (Sleep Aid (diphenhydramine)) 25 mg PO HS 11/01/24
ezetimibe 10 mg tablet (Zetia) 10 mg PO QPM 11/01/24
lamotrigine 200 mg tablet (Lamictal) 200 mg PO BID 11/01/24
lansoprazole 15 mg capsule,delayed release 15 mg PO DAILY 11/01/24
memantine 10 mg tablet 10 mg PO BID 11/01/24
pregabalin 100 mg capsule (Lyrica) 100 mg PO TID 11/01/24
therapeutic multivitamin 1 tab PO DAILY 11/01/24
vitamin E 268 mg (400 unit) capsule 268 mg PO DAILY 11/01/24
aspirin 81 mg chewable tablet 81 mg PO DAILY #30 tabs 11/06/24
rosuvastatin 20 mg tablet 20 mg PO QPM #30 tabs 11/06/24
albuterol sulfate 90 mcg/actuation aerosol inhaler 2 puff inhalation R Q6HPRN PRN shortness of breath or wheezing 01/07/25
dapagliflozin propanediol 10 mg tablet (Farxiga) 10 mg PO DAILY 01/07/25
furosemide 20 mg tablet 20 mg PO DAILYPRN PRN Weight gain 01/07/25
hydrocodone 10 mg-acetaminophen 325 mg tablet 1 tab PO TIDPRN PRN severe Pain 01/07/25
lisinopril 10 mg tablet 10 mg PO DAILY 01/07/25
sertraline 50 mg tablet 50 mg PO NOON 01/07/25
Review of Systems
-
History Source: Patient
A 12 point ROS was completed and negative except as noted: Yes
Constitutional: Reports No Symptoms
EENT: Reports No Symptoms
Respiratory: Reports No Symptoms
Cardiac: Reports No Symptoms
Abdomen/GI: Reports No Symptoms
: Reports No Symptoms
Musculoskeletal: Reports No Symptoms
Skin: Reports No Symptoms
Neurological: Reports Dizzy, Weakness and Other (Tremors/shaking)
Endocrine: Reports No Symptoms
Hematologic/Lymphatic: Reports No Symptoms
Psych: Reports No Symptoms
Physical Exam
Vital Signs
Vital Signs
Temp Pulse Resp BP Pulse Ox
98.3 F 69 19 131/90 94
01/07/25 17:27 01/07/25 22:30 01/07/25 22:30 01/07/25 22:00 01/07/25 22:30
Physical Exam
General: Well Developed, Comfortable, Conversant and Appears Chronically Ill
HEENT: NormoCephalic, Anicteric, Moist mucous membranes, Atraumatic, PERRLA and No Ptosis
Respiratory: Clear
Cardiac: S1/S2 and Regular Rhythm
Breast: Deferred by me
GI: Soft, Non Tender and Non Distended
Rectal: Deferred by Provider
Genito-urinary: Deferred by me
Musculoskeletal: No Clubbing, No Cyanosis and No Edema
Skin: Warm
Neuro: AO x 3, Cranial Nerves Intact, No Sensory Deficits and Tremors (With intention); No Slurred Speech or Facial Droop
Hematologic/Lymphatic: No Lymphadenopathy
Psych: Calm
Laboratory Results
-
01/07/25 20:28
01/07/25 20:28
Data Reviewed
-
CT Scan: Report Reviewed by me
Medical Tests (Nuc Med, Echo, EKG etc): Image Personally Visualized and interpreted
Lab Data: Labs Reviewed by me
Old Records: Reviewed
Impression/Plan
-
IMPRESSION:
Patient with significant past medical history of seizure, hypertension and CAD who recently had a nonobstructive cardiomyopathy with EF of 20 to 25% and newly started on metoprolol and on as needed Lasix presents to the emergency department with
worsening tremors and a fall. The patient is a picture of intentional tremors associated with ambulation. Today he had tremors even while sitting down. Seems to be associated with the recent increase in his Lamictal. The reasoning for increasing
the Lamictal was not clear. Denies any loss of consciousness. He has been no generalized tonic-clonic seizures. CT of the head is unremarkable. Electrolytes BUN/creatinine are all in the normal range. No signs of acute CHF exacerbation at this
time. No signs of acute infection either. No focal neurological deficits on the exam.
PLAN:
Ataxia/Tremors -ataxia and tremors, does not fit generalized seizure. However cannot rule out focal seizure activity. Possibly movement disorder associate w/ with increased lamotrigine 2 weeks ago. Patient otherwise appears to be in usual state
of health.
- admit to tele to monitor for possible syncopal event given h/o depressed EF
- continue lamotrigine at 100 bid for now
- check eeg in am
- check mri
- orthostatic vital signs
- check covid/flu and u/a
- chest xray to rule out rib fracture
- neurology consult
- pt evaluation
CHF - Euvolemia on exam.
- daily weights
- continue lisinopril with hold parameters
- lasix if weight gain
-continue aspirin and farxiga
DVT PPX - lovenox sq
Code status - DNR
[2025-01-07 23:00] VITALS: BP 142/74
[2025-01-08] VITALS (10 sets, daily range): BP systolic 112–164; BP diastolic 58–84; PULSE 84–108
[2025-01-08 00:43] LABS: COVID-19 Antigen Negative (Negative)
[2025-01-08] MEDS: SYNTHROID 25 MCG PO (06:41)
[2025-01-08 07:08] LABS: Hematocrit 37.5 % (39.0-52.0); Hemoglobin 12.5 g/dL (13.0-18.0); Mean Corp Hgb Conc. 33.3 g/dL (33.0-37.0); Mean Corpuscular Hgb 31.2 pg (27.0-31.0); Mean Corpuscular Volume 93.5 fL (80.0-94.0); Mean Platelet Volume 9.3 fL (7.4-10.4); Platelet Count 190 10^3/uL (130-400); Red Blood Cell Count 4.01 10^6/uL (4.70-6.10); Red Cell Dist. Width 12.5 % (11.5-14.5); White Blood Cell Count 6.2 10^3/uL (4.8-10.8)
[2025-01-08 07:11] LABS: Urine Albumin 1+ (Neg - Trace); Urine Bilirubin Negative (Negative); Urine Character Clear (Clear); Urine Color Yellow; Urine Glucose 4+ (Negative); Urine Ketone Negative (Negative); Urine Leukocyte Negative (Negative); Urine Nitrite Negative (Negative); Urine Occult Blood Negative (Negative); Urine Urobilinogen Negative (Neg - 1+)
[2025-01-08 07:30] LABS: Blood Urea Nitrogen 12 mg/dl (9-20); Calcium 9.1 mg/dl (8.4-10.2); Carbon Dioxide 27 mmol/L (22-30); Chloride 103 mmol/L (98-107); Estimated Creatinine Clearance 62 ml/min; Glucose 90 mg/dl (70-99); Potassium 3.7 mmol/L (3.5-5.1); Sodium 139 mmol/L (135-145); eGFR > 60.00
[2025-01-08 07:46] LABS: Urine Red Blood Cell None Seen /HPF (0-2); Urine White Cell 0-2 /HPF (0-5)
[2025-01-08 09:00] LABS: Vitamin B12 347 pg/ml (239-931)
[2025-01-08] MEDS: FARXIGA 10 MG PO (10:01)
[2025-01-08] MEDS: ZESTRIL 10 MG PO (10:01)
[2025-01-08] MEDS: LAMICTAL 100 MG PO ×2 (10:01→20:05)
[2025-01-08] MEDS: ZOLOFT 100 MG PO (10:01)
[2025-01-08] MEDS: LYRICA 100 MG PO ×3 (10:02→22:08)
[2025-01-08] MEDS: PROTONIX 40 MG PO (10:02)
[2025-01-08] MEDS: NAMENDA 10 MG PO ×2 (10:02→20:06)
[2025-01-08] MEDS: LOW STRENGTH ASPIRIN 81 MG PO (10:02)
--- NOTE | 2025-01-08 10:53 | W.PN.HOSP.TC ---
Today's Communication/Plan
-
The patient's lamotrigine has been reduced to 100 mg p.o. twice daily from 200 mg p.o. twice daily. Awaiting results of EEG. Appreciate neurology recommendations.
Assessment / Plan
Assessment / Plan
HPI: Patient is a 79-year-old with a medical history significant for seizure disorder treated with lamotrigine, hypertension, coronary artery disease, tobacco use who was recently admitted to this hospital for acute pulmonary edema and was found to
have severely reduced left ventricular systolic function of 20 to 25% status post cath showing no obstructive coronary artery disease. He presents to the emergency department following a fall at home. His most recent hospitalization was notable
for Takotsubo cardiomyopathy with an ejection fraction of 20 to 25%. He was started on Lasix 20 mg daily as needed for weight gain and was discharged at a weight of 97.8 kg. His lisinopril was discharged continued and he was started on Toprol-XL
12.5 mg in the morning and 25 mg in the evening prior to discharge. On the day of his presentation he was having episodes of tremor which became so exacerbated it led to him falling out of his chair. The patient and his family reported about 1
week of tremors prior to his presentation they reported that he does have some tremors prior but over the last 2 weeks they increased in frequency and intensity. The patient had an increase in his lamotrigine 2 weeks ago and the family associates
this medication adjustment with the increase in tremors. The tremor caused difficulty in ambulation and he felt that he could not walk forward without falling. He has not had any fall from standing at home. His most recent presentation occurred
at the dinner table where he started to have severe or large amplitude tremors of his upper and lower extremities causing him to fall out of his chair. He complained of left-sided thoracic pain after the fall. He was alert and oriented during the
episode and immediately after. The patient does not recall losing consciousness at all during any of the episode. The patient was brought in by EMS. Patient denied cough, wheezing, or shortness of breath. The patient denied any flulike symptoms.
Patient denied any fever or chills. Patient reported difficulty initiating urination but denies dysuria, flank pain, or hematuria. Patient was admitted to [facility] for fall secondary to ataxia/tremors.
Assessment/Plan:
-Ataxia/tremors:
Patient appears to present with ataxia and tremors and history taken at the bedside does not suggest seizure but cannot rule out focal seizure activity.
Possibly associated with increased lamotrigine
Patient has been admitted to telemetry to monitor for possible syncopal event given prior echocardiogram showing reduced ejection fraction
EEG ordered
MRI conducted on 01/08/2025 show multiple small foci of hemosiderin deposition grouped in the right side of the medulla, right lilibeth, and right middle cerebellar peduncle suggesting small chronic intraparenchymal microhemorrhages which have increased
compared to prior MRI. Possible cerebral vascular malformation or hypertensive microangiopathy. Moderate bilateral frontal and parietal lobe volume loss. 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
leukoaraiosis).
Orthostatics
Chest x-ray to rule out fracture of the rib
Appreciate neurology consult
PT OT eval and treat
Lamictal dose lowered to 100 mg p.o. twice daily from 200 mg p.o. twice daily
-Takotsubo cardiomyopathy:
Echocardiogram conducted on 11/02/2024 showed severely reduced left ventricular systolic function with severe hypokinesis of the mid to apical wall segments and hyperdynamic basal wall segments. Estimated left ventricular ejection fraction of 20
to 25%. Mild mitral regurgitation. Mild tricuspid regurgitation.
Cardiac catheterization conducted on 11/02/2024 showed obstructive coronary artery disease in the right dominant system however no clear culprit lesion to explain severe cardiomyopathy with ejection fraction of 25%. LAD is only borderline
hemodynamically significant, diagonal branch with possible hazy lesion has TIMI3 flow, RCA disease moderate, and severe distal LCx disease is a very small territory. Overall, picture more consistent with non-ischemic etiology of severe
cardiomyopathy.
Euvolemia on exam
Follow daily weights and I's and O's
Continue lisinopril with hold parameter
Lasix if fluid retention
Continue aspirin and Farxiga
-Asthma + COPD:
Continue albuterol
-History of tobacco use:
Quit smoking 25 years ago. Used to be a 2 pack/day smoker for 20 years
-Ziwgwqj-Qmxlq-risba syndrome:
Continue pregabalin
-Seizure disorder:
Lamictal dose lowered to 100 mg p.o. twice daily from 200 mg p.o. twice daily
-Essential hypertension:
Continue lisinopril
-Coronary artery disease:
Continue aspirin
-Dementia/depression:
Continue sertraline and memantine
-Hypothyroidism:
Continue levothyroxine
-GERD:
Continue lansoprazole
-Hyperlipidemia:
Continue ezetimibe
DVT prophylaxis: Lovenox sq
CODE STATUS: DNR
Imaging:
-Head CT conducted on 01/07/2025:
No evidence of acute intracranial abnormality
-Brain MRI conducted on 01/08/2025:
Multiple small foci of hemosiderin deposition grouped in the right side of the medulla, right lilibeth, and right middle cerebellar peduncle suggesting small chronic intraparenchymal microhemorrhages which have increased compared with the prior MRI
examinations. Diagnostic possibilities are (1) a cerebral vascular malformation or (2) hypertensive microangiopathy.
Moderate bilateral frontal and parietal lobe volume loss.
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
Severe multilevel discogenic degenerative disease and facet joint arthrosis in the cervical spine causing mild multilevel spinal cord compression.
Anticipated Discharge: > 48 hours
Subjective/Interval History
-
Met with patient at the bedside. He is doing much better since his arrival. Calm resting in bed.
Objective Data
-
Labs:
Laboratory Results
01/08/25
06:43
WBC 6.2
Hgb 12.5 L
Hct 37.5 L
Plt Count 190
Sodium 139
Potassium 3.7
Chloride 103
Carbon Dioxide 27
BUN 12
Creatinine 1.1
Glucose 90
Calcium 9.1
Vital Signs:
Vital Signs
Temp Pulse Resp BP Pulse Ox
98.4 F 81 18 155/68 95
01/08/25 08:45 01/08/25 10:01 01/08/25 08:45 01/08/25 10:01 01/08/25 08:45
I&O
01/07/25 01/08/25 01/09/25
06:59 06:59 06:59
Output Total 200 / 200
Balance -200 / -200
Review of Systems
-
History Source: Patient
Constitutional: Reports No Symptoms
EENT: Reports No Symptoms Reported
Respiratory: Reports No Symptoms
Cardiac: Reports No Symptoms
Abdomen/GI: Reports No Symptoms
Breast: Reports No Symptoms
Genitourinary: Reports No Symptoms
Musculoskeletal: Reports No Symptoms
Skin: Reports No Symptoms
Neuro: Reports Tremors
Endocrine: Reports No Symptoms
Physical Exam
-
General: Well Developed, Well Nourished, No Apparent Distress and Comfortable
HEENT: Normocephalic, Atraumatic and Moist Mucous Membranes
Respiratory: Clear to Auscultation
Cardiac: S1/S2; Negative Murmur or JVD
Breast: Deferred by me
GI: Soft, Nontender, Nondistended and Normal Bowel Sounds
Rectal: Deferred by Provider
Genito-urinary: Deferred by me
Musculoskeletal: No Clubbing, No Cyanosis and No Edema
Skin: Warm and Dry
Neuro: Awake, Alert, Oriented and AO x 3
--- NOTE | 2025-01-08 12:02 | W.PN.UPDATE ---
Update Note
Progress Note Update
Summary from admission: 79 y/o M PMHx of seizure, hypertension and CAD who recently had a nonobstructive cardiomyopathy with EF of 20 to 25% and newly started on metoprolol and PRN Lasix p/w worsening tremors and a fall. The patient is a picture of
intentional tremors associated with ambulation. Today he had tremors even while sitting down. Seems to be associated with the recent increase in his Lamictal. The reasoning for increasing the Lamictal was not clear. Denies any loss of
consciousness. He has had no generalized tonic-clonic seizures. CT of the head is unremarkable. Electrolytes BUN/creatinine are all in the normal range. No signs of acute CHF exacerbation at this time. No signs of acute infection either. No
focal neurological deficits on the exam.
I saw and evaluated the patient. I reviewed the resident�s note and agree with findings and plan as documented in the resident�s note.
Currently on EEG.
Gen: NAD, NCAT
CV: RRR, +S1/S2, no m/r/g.
Resp: CTAB anteriorly, no rales, wheezes, or rhonchi.
Abd: +BS, soft, NT, ND
Skin: No rashes.
CT brain: No evidence of acute intracranial abnormality.
MRI brain:
1. Multiple small foci of hemosiderin deposition grouped in the right side of the medulla, right lilibeth, and right middle cerebellar peduncle suggesting small chronic intraparenchymal microhemorrhages which have increased compared with the prior MRI
examinations. Diagnostic possibilities are (1) a cerebral vascular malformation or (2) hypertensive microangiopathy.
2. Moderate bilateral frontal and parietal lobe volume loss.
3. 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
4. Severe multilevel discogenic degenerative disease and facet joint arthrosis in the cervical spine causing mild multilevel spinal cord compression.
Ataxia/Tremors:
-h/o seizure d/o
-HPI not consistent with generalized seizure. However cannot rule out focal seizure activity. Possibly movement disorder associate w/ with increased lamotrigine 2 weeks [employer].
-cont tele to monitor for possible syncopal event given h/o depressed EF
-continue lamotrigine at lower dose of 100mg BID
-MRI brain above, notable for R-medulla/remi/middle cerebellar peduncle suggesting small chronic intraparenchymal microhemorrhages which have increased compared with the prior MRI examinations. Diagnostic possibilities are (1) a cerebral vascular
malformation or (2) hypertensive microangiopathy.
-EEG pending
-c/s neuro
-orthostatic VS NEG
-PT/OT
-COVID/Flu NEG
Other problems:
Chronic HFrEF: cont Farxiga/ACEi
CAD: cont ASA/statin
Asthma and COPD, not in acute exac: Albuterol PRN
History of tobacco abuse disorder
Hkppsca-Sznro-Hdovj syndrome
Essential hypertension: cont ACEi
Dementia: cont Namenda
Depression: cont Zoloft
Hypothyroidism: cont synthroid
GERD: cont PPI
HLD: cont statin
DNR/Lovenox
[2025-01-08] MEDS: ZOLOFT 50 MG PO (13:55)
--- NOTE | 2025-01-08 15:39 | EEG.RPT ---
Electroencephalogram Report
Recording
Date of EE01/08/25
Type of EEG: Routine
Length of EEG recordin minutes
Done with Video Recording: Yes
Patient Status: Inpatient
Recording Conditions: Awake and Drowsy
Hyperventilation Performed: No
Photic Stimulation Performed: Yes
Report
LESS THAN 1 HOUR EEG REPORT
LESS THAN 1 HOUR EEG INTERPRETATION:
Mildly abnormal EEG for age due to diffuse bihemispheric slowing
CLINICAL CORRELATION:
This study was suggestive of mild diffuse cortical dysfunction without focal abnormality. No seizures were recorded.
Clinical correlation is advised.
METHODS:
A 21 channel digitized electroencephalogram (EEG) was performed at the bedside. The 10/20 international system of electrode placement was used with ECG and lateral/vertical eye movements recorded. Persyst QEEG monitoring was performed.
QUALITY OF STUDY:
Fair due to muscle artifact
ELECTROENCEPHALOGRAPHER IMPRESSION(S):
Background
There was a low to medium amplitude fairly well organized at times anterior-posterior voltage gradient of theta frequency
There were no significant asymmetries of background activity noted.
Sleep
Drowsiness present
Photic Stimulation
Failed to activate the record.
ECG
Normal sinus rhythm
--- NOTE | 2025-01-08 16:17 | CON.NEURO ---
Consultation
Order
Date of Consultation: 01/08/25
Requesting Provider: Yady Brownlee MD
Reason for Consult: Tremors/ataxia of the increased AED
Neurology Consultation Note.
HPI: This is a 79-year-old right-handed man who presented to [facility] on 01/07/2025 with a witnessed fall.
Mr. Higginbotham he was eating at the table when suddenly his chronic hand tremor worsened (described as high amplitude jerking movements) prompting him to drop dishes from his hand. He then fell from his chair to the floor with no head trauma or loss
of consciousness and was unable to get up independently. His , who witnessed the event, states that patient was staring but able to communicate. She noted that his speech was more slurred than usual. No reports of confusion in addition to
baseline. Momo reports experiencing chest pain and palpitations prior to the onset of the spell.
Based on EMR the patient has a history of head trauma with loss of consciousness in 1969. Ambulatory EEG in 2019 showed left temporal spike.
Prior AED: Topiramate, valproic acid, oxcarbazepine, lamotrigine, gabapentin
ER VS: 114/74, 83, afebrile
EKG:NSR, QTc Int : 423 ms
PDMP: Hydrocodone-Acetamin 10-325 Mg 90 tablets filled in on 12/26/2024, pregabalin 100 mg 270 capsules filled in on 12/26/2024
Labs: Glucose�101, normal sodium, creatinine�1.2, Normal TSH, WBCs, platelets, neg SARS-Cov2 ag, UA�positive for glucose, albumin.
Brain MR wo mann(01/08/2025)-
1. Multiple small foci of hemosiderin deposition grouped in the right side of the medulla, right lilibeth, and right middle cerebellar peduncle suggesting small chronic intraparenchymal microhemorrhages which have increased compared with the 2020 MRI
examinations.
2. Moderate bilateral frontal and parietal lobe volume loss.
3. 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
Routine EEG(01/08/2025)�mild generalized slowing
PMH: CM(EF 20-25%), hypothyroidism, neuropathy dementia, ambulatory dysfunction, chronic opioid use, MDD
SH: , former-smoker, no history excessive alcohol use. 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
FH: maternal aunt�tremor
All: Oxcarbazepine, Benzodiazepines, penicillin
ROS: Constitutional: Negative. Negative for chills, fever and unexpected weight change.
HENT: Negative for ear pain, hearing loss, tinnitus and trouble swallowing.
Eyes: Negative. Negative for photophobia, pain and visual disturbance.
Respiratory: Negative for cough, choking and shortness of breath.
Cardiovascular: Negative for chest pain, palpitations and leg swelling.
Gastrointestinal: Negative for abdominal pain and vomiting.
Endocrine: Negative. Negative for cold intolerance.
Genitourinary: Negative for dysuria, flank pain and urgency.
Musculoskeletal: Positive for abdominal tenderness. Tremor
Skin: Negative for rash.
Allergic/Immunologic: Negative. Negative for immunocompromised state.
Neurological: Positive for chronic cognitive impairment, hand tremor, ambulatory dysfunction
Psychiatric/Behavioral: Negative for behavioral problems, confusion and hallucinations.
General: Well developed. In no acute distress.
Cardio: Regular rate and rhythm without murmur. Extremities are without cyanosis or edema.
Neuro:
Mental Status: Alert, oriented to self, year, not to month or season. Impaired attention. Follows simple requests consistently. No hemineglect.
Cranial Nerves: Pupils are equally round and reactive to light. EOMs full. Blinks to threat bilaterally. Efren ptosis. No nystagmus. V1-V3 intact to light touch and pinprick bilaterally, symmetric. Face symmetric. Impaired hearing AU. The
palate elevated well. SCMs and traps 5/5. Tongue midline. Edentulous dysarthria.
Motor: Normal bulk and tone. No pronator or arm drift. Strength 5/5 throughout. No clonus.
Reflexes: Trace throughout
Sensory: Preserved proprioception at the toes
Coordination: Bilateral symmetric action hand tremor, head tremor, tongue tremor. No dysmetria.
Gait: deferred
Assessment and Plan:
I. Status post fall. Differential diagnosis includes vascular vs epileptic vs cardiac.
II. Focal epilepsy
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
IV. Chronic sensorimotor polyneuropathy.
V. Chronic action hand tremor.
-Seizure precautions
-Follow-up Lamictal level
-Avoid medications known to cause myoclonus (opioids)
-Cardiology evaluation (Holter monitor)
-Outpatient cEEG
-Valtoco as needed
-Please follow-up CTA head/neck
-Continue aspirin 81 mg once a day
-Please check urine tox, ammonia
-Continue pregabalin 100 mg 3 times daily and Lamictal 200 mg twice daily Lamictal level is normal
-Please obtain medical records from patient's neurologist
-Outpatient neurology follow-up.
I personally reviewed all radiology and labs along with past medical records pertinent to current medical problems. Total time spent in patient care is 61 minutes.
Thank you for allowing us to participate in the care of this patient. Please do not hesitate to contact us with any questions or concerns.
Subjective/Objective
Subjective Data
Date of Service: January 08, 2025
Objective Data
Vital Signs
Temp Pulse Resp BP Pulse Ox
36.3 C 79 17 112/64 93
01/08/25 15:10 01/08/25 15:10 01/08/25 15:10 01/08/25 15:10 01/08/25 15:10
Lab Results
01/08/25 06:43
01/08/25 06:43
Sodium 139 mmol/L (135-145) 01/08/25 06:43
Potassium 3.7 mmol/L (3.5-5.1) 01/08/25 06:43
BUN 12 mg/dl (9-20) 01/08/25 06:43
Glucose 90 mg/dl (70-99) 01/08/25 06:43
Calcium 9.1 mg/dl (8.4-10.2) 01/08/25 06:43
Vitamin B12 347 pg/ml (239-931) 01/08/25 06:43
Patient Allergies
Benzodiazepines Allergy (Verified 11/01/24 10:17)
SIMVA - headache,blurry vision
Penicillins Allergy (Verified 11/01/24 10:17)
Hives
Medications
-
Active Medications
Generic Name Dose Route Start Last Admin
Trade Name Freq PRN Reason Stop Dose Admin
Acetaminophen 650 mg 01/08/25 00:48
Acetaminophen 325 Mg Tablet PO 02/05/25 00:47
Q4HPRN PRN
mild pain/LANGSTON/temp> 100.4F
Albuterol 2 puff 01/08/25 00:48
Albuterol Hfa [90 Mcg/Dose] Inhaler INH
R Q6HPRN PRN
shortness of breath or wheezing
Protocol
Aspirin 81 mg 01/08/25 08:00 01/08/25 10:02
Aspirin 81 Mg Chewable Tablet PO 02/05/25 07:59 81 mg
DAILY RIGO Administration
Bisacodyl 10 mg 01/08/25 00:48
Bisacodyl 10 Mg Rectal Suppository RECTAL 02/05/25 00:47
[id number] PRN
constipation
Dapagliflozin 10 mg 01/08/25 08:00 01/08/25 10:01
Dapagliflozin (Farxiga) 10 Mg Tablet PO 02/05/25 07:59 10 mg
DAILY RIGO Administration
Ezetimibe 10 mg 01/08/25 18:00
Ezetimibe (Zetia) 10 Mg Tablet PO 02/05/25 17:59
QPM RIGO
Enoxaparin Sodium 40 mg 01/08/25 18:00
Enoxaparin Sodium 40 Mg/0.4 Ml Syringe SC 02/05/25 17:59
QPM RIGO
Lamotrigine 100 mg 01/08/25 08:00 01/08/25 10:01
Lamotrigine 100 Mg Tablet PO 02/05/25 07:59 100 mg
BID RIGO Administration
Levothyroxine Sodium 25 mcg 01/08/25 06:00 01/08/25 06:41
Levothyroxine 25 Mcg Tablet PO 02/05/25 05:59 25 mcg
DAILY @ 0600 RIGO Administration
Lisinopril 10 mg 01/08/25 08:00 01/08/25 10:01
Lisinopril 10 Mg Tablet PO 02/05/25 07:59 10 mg
DAILY RIGO Administration
Memantine 10 mg 01/08/25 08:00 01/08/25 10:02
Memantine 10 Mg Tablet PO 02/05/25 07:59 10 mg
BID RIGO Administration
Oxycodone HCl 5 mg 01/08/25 00:48
Oxycodone 5 Mg Regular Release Tablet PO 01/22/25 00:47
Q4HPRN PRN
moderate pain
Pantoprazole Sodium 40 mg 01/08/25 08:00 01/08/25 10:02
Pantoprazole 40 Mg Delayed Release Tablet PO 02/05/25 07:59 40 mg
DAILY RIGO Administration
Polyethylene Glycol 17 grams 01/08/25 00:48
Polyethylene Glycol Powder 17 Grams Packet PO 02/05/25 00:47
DAILYPRN PRN
constipation
Pregabalin 100 mg 01/08/25 08:00 01/08/25 10:02
Pregabalin 100 Mg Capsule PO 02/05/25 07:59 100 mg
TID RIGO Administration
Rosuvastatin Calcium 20 mg 01/08/25 18:00
Rosuvastatin (Crestor) 20 Mg Tablet PO 02/05/25 17:59
QPM RIGO
Senna/Docusate Sodium 1 tablet 01/08/25 00:48
Docusate W/Senna (Cadence-Colace) Tablet PO 02/05/25 00:47
BIDPRN PRN
constipation
Sertraline HCl 50 mg 01/08/25 12:00 01/08/25 13:55
Sertraline 50 Mg Tablet PO 02/05/25 11:59 50 mg
NOON RIGO Administration
Sertraline HCl 100 mg 01/08/25 08:00 01/08/25 10:01
Sertraline 100 Mg Tablet PO 02/05/25 07:59 100 mg
DAILY RIGO Administration
Sodium Chloride 0 flush 01/07/25 23:00
Sodium Chloride 0.9% (Flush) Syringe IV 02/04/25 22:59
PER PROTOCOL RIGO
Home Medications
�Medication �Instructions �Recorded
cholecalciferol (vitamin D3) 25 1,000 unit PO DAILY 09/04/16
mcg (1,000 unit) capsule (Vitamin
D3)
levothyroxine 25 mcg tablet 25 mcg PO DAILY 09/04/16
sertraline 100 mg tablet 100 mg PO DAILY 09/04/16
diphenhydramine HCl 25 mg tablet 25 mg PO HS 11/01/24
(Sleep Aid (diphenhydramine))
ezetimibe 10 mg tablet (Zetia) 10 mg PO QPM 11/01/24
lamotrigine 200 mg tablet 200 mg PO BID 11/01/24
(Lamictal)
lansoprazole 15 mg capsule,delayed 15 mg PO DAILY 11/01/24
release
memantine 10 mg tablet 10 mg PO BID 11/01/24
pregabalin 100 mg capsule (Lyrica) 100 mg PO TID 11/01/24
therapeutic multivitamin 1 tab PO DAILY 11/01/24
vitamin E 268 mg (400 unit) capsule 268 mg PO DAILY 11/01/24
aspirin 81 mg chewable tablet 81 mg PO DAILY #30 tabs 11/06/24
rosuvastatin 20 mg tablet 20 mg PO QPM #30 tabs 11/06/24
albuterol sulfate 90 mcg/actuation 2 puff inhalation R Q6HPRN PRN 01/07/25
aerosol inhaler shortness of breath or wheezing
dapagliflozin propanediol 10 mg 10 mg PO DAILY 01/07/25
tablet (Farxiga)
furosemide 20 mg tablet 20 mg PO DAILYPRN PRN Weight gain 01/07/25
hydrocodone 10 mg-acetaminophen 1 tab PO TIDPRN PRN severe Pain 01/07/25
325 mg tablet
lisinopril 10 mg tablet 10 mg PO DAILY 01/07/25
sertraline 50 mg tablet 50 mg PO NOON 01/07/25
Vital Signs and Labs
-
Vital Signs and Labs:
Vital Signs
Temp Pulse Resp BP Pulse Ox
36.3 C 79 17 112/64 93
01/08/25 15:10 01/08/25 15:10 01/08/25 15:10 01/08/25 15:10 01/08/25 15:10
Lab Results
01/08/25 06:43
01/08/25 06:43
Sodium 139 mmol/L (135-145) 01/08/25 06:43
Potassium 3.7 mmol/L (3.5-5.1) 01/08/25 06:43
BUN 12 mg/dl (9-20) 01/08/25 06:43
Glucose 90 mg/dl (70-99) 01/08/25 06:43
Calcium 9.1 mg/dl (8.4-10.2) 01/08/25 06:43
Vitamin B12 347 pg/ml (239-931) 01/08/25 06:43
Medications
-
Medications:
Generic Name Dose Route Start Last Admin
Trade Name Freq PRN Reason Stop Dose Admin
Acetaminophen 650 mg 01/08/25 00:48
Acetaminophen 325 Mg Tablet PO 02/05/25 00:47
Q4HPRN PRN
mild pain/LANGSTON/temp> 100.4F
Albuterol 2 puff 01/08/25 00:48
Albuterol Hfa [90 Mcg/Dose] Inhaler INH
R Q6HPRN PRN
shortness of breath or wheezing
Protocol
Aspirin 81 mg 01/08/25 08:00 01/08/25 10:02
Aspirin 81 Mg Chewable Tablet PO 02/05/25 07:59 81 mg
DAILY RIGO Administration
Bisacodyl 10 mg 01/08/25 00:48
Bisacodyl 10 Mg Rectal Suppository RECTAL 02/05/25 00:47
[id number] PRN
constipation
Dapagliflozin 10 mg 01/08/25 08:00 01/08/25 10:01
Dapagliflozin (Farxiga) 10 Mg Tablet PO 02/05/25 07:59 10 mg
DAILY RIGO Administration
Ezetimibe 10 mg 01/08/25 18:00
Ezetimibe (Zetia) 10 Mg Tablet PO 02/05/25 17:59
QPM RIGO
Enoxaparin Sodium 40 mg 01/08/25 18:00
Enoxaparin Sodium 40 Mg/0.4 Ml Syringe SC 02/05/25 17:59
QPM RIGO
Lamotrigine 100 mg 01/08/25 08:00 01/08/25 10:01
Lamotrigine 100 Mg Tablet PO 02/05/25 07:59 100 mg
BID RGIO Administration
Levothyroxine Sodium 25 mcg 01/08/25 06:00 01/08/25 06:41
Levothyroxine 25 Mcg Tablet PO 02/05/25 05:59 25 mcg
DAILY @ 0600 RIGO Administration
Lisinopril 10 mg 01/08/25 08:00 01/08/25 10:01
Lisinopril 10 Mg Tablet PO 02/05/25 07:59 10 mg
DAILY RIGO Administration
Memantine 10 mg 01/08/25 08:00 01/08/25 10:02
Memantine 10 Mg Tablet PO 02/05/25 07:59 10 mg
BID RIGO Administration
Oxycodone HCl 5 mg 01/08/25 00:48
Oxycodone 5 Mg Regular Release Tablet PO 01/22/25 00:47
Q4HPRN PRN
moderate pain
Pantoprazole Sodium 40 mg 01/08/25 08:00 01/08/25 10:02
Pantoprazole 40 Mg Delayed Release Tablet PO 02/05/25 07:59 40 mg
DAILY RIGO Administration
Polyethylene Glycol 17 grams 01/08/25 00:48
Polyethylene Glycol Powder 17 Grams Packet PO 02/05/25 00:47
DAILYPRN PRN
constipation
Pregabalin 100 mg 01/08/25 08:00 01/08/25 16:27
Pregabalin 100 Mg Capsule PO 02/05/25 07:59 100 mg
TID RIGO Administration
Rosuvastatin Calcium 20 mg 01/08/25 18:00
Rosuvastatin (Crestor) 20 Mg Tablet PO 02/05/25 17:59
QPM RIGO
Senna/Docusate Sodium 1 tablet 01/08/25 00:48
Docusate W/Senna (Cadence-Colace) Tablet PO 02/05/25 00:47
BIDPRN PRN
constipation
Sertraline HCl 50 mg 01/08/25 12:00 01/08/25 13:55
Sertraline 50 Mg Tablet PO 02/05/25 11:59 50 mg
NOON RIGO Administration
Sertraline HCl 100 mg 01/08/25 08:00 01/08/25 10:01
Sertraline 100 Mg Tablet PO 02/05/25 07:59 100 mg
DAILY RIGO Administration
Sodium Chloride 0 flush 01/07/25 23:00
Sodium Chloride 0.9% (Flush) Syringe IV 02/04/25 22:59
PER PROTOCOL RIGO
Home Medications
-
Home Medications
cholecalciferol (vitamin D3) 25 mcg (1,000 unit) capsule (Vitamin D3) 1,000 unit PO DAILY 09/04/16
levothyroxine 25 mcg tablet 25 mcg PO DAILY 09/04/16
sertraline 100 mg tablet 100 mg PO DAILY 09/04/16
diphenhydramine HCl 25 mg tablet (Sleep Aid (diphenhydramine)) 25 mg PO HS 11/01/24
ezetimibe 10 mg tablet (Zetia) 10 mg PO QPM 11/01/24
lamotrigine 200 mg tablet (Lamictal) 200 mg PO BID 11/01/24
lansoprazole 15 mg capsule,delayed release 15 mg PO DAILY 11/01/24
memantine 10 mg tablet 10 mg PO BID 11/01/24
pregabalin 100 mg capsule (Lyrica) 100 mg PO TID 11/01/24
therapeutic multivitamin 1 tab PO DAILY 11/01/24
vitamin E 268 mg (400 unit) capsule 268 mg PO DAILY 11/01/24
aspirin 81 mg chewable tablet 81 mg PO DAILY #30 tabs 11/06/24
rosuvastatin 20 mg tablet 20 mg PO QPM #30 tabs 11/06/24
albuterol sulfate 90 mcg/actuation aerosol inhaler 2 puff inhalation R Q6HPRN PRN shortness of breath or wheezing 01/07/25
dapagliflozin propanediol 10 mg tablet (Farxiga) 10 mg PO DAILY 01/07/25
furosemide 20 mg tablet 20 mg PO DAILYPRN PRN Weight gain 01/07/25
hydrocodone 10 mg-acetaminophen 325 mg tablet 1 tab PO TIDPRN PRN severe Pain 01/07/25
lisinopril 10 mg tablet 10 mg PO DAILY 01/07/25
sertraline 50 mg tablet 50 mg PO NOON 01/07/25
[2025-01-08] MEDS: LOVENOX 40 MG SC (17:23)
[2025-01-08] MEDS: ZETIA 10 MG PO (17:23)
[2025-01-08 17:40] LABS: Ammonia < 9 umol/L (9-30)
[2025-01-08] MEDS: CRESTOR 20 MG PO (18:24)
--- NOTE | 2025-01-08 19:28 | TRANSFER ---
Received pt. from ED around 1800. Pt. walked from stretcher to bed with rolling walker. Pt. oriented to room and nursing assessment complete. Call williamson within reach, will continue to follow plan of care.
[2025-01-08] MEDS: TYLENOL 650 MG PO (20:11)
[2025-01-09 03:04] VITALS: BP 122/65
--- NOTE | 2025-01-09 03:15 | DOWNTIME ---
There was a [employer] Downtime on 01/09/2025 from 0100 to 01/09/2024 at 0235 . Downtime documentation of patient's care, including medication administrations, has been reconciled in the electronic record per guidelines. Refer to the
patient's paper chart under the miscellaneous tab to see printed paper medication records and downtime forms.
[2025-01-09] MEDS: SYNTHROID 25 MCG PO (05:22)
[2025-01-09 06:34] LABS: Hematocrit 38.9 % (39.0-52.0); Hemoglobin 12.9 g/dL (13.0-18.0); Mean Corp Hgb Conc. 33.2 g/dL (33.0-37.0); Mean Corpuscular Hgb 30.6 pg (27.0-31.0); Mean Corpuscular Volume 92.4 fL (80.0-94.0); Mean Platelet Volume 9.2 fL (7.4-10.4); Platelet Count 193 10^3/uL (130-400); Red Blood Cell Count 4.21 10^6/uL (4.70-6.10); Red Cell Dist. Width 12.6 % (11.5-14.5); White Blood Cell Count 6.5 10^3/uL (4.8-10.8)
[2025-01-09 07:11] LABS: ALT (SGPT) 13 U/L (0-50); AST (SGOT) 27 U/L (17-59); Alkaline Phosphatase 75 U/L (38-126); Blood Urea Nitrogen 11 mg/dl (9-20); Calcium 9.1 mg/dl (8.4-10.2); Carbon Dioxide 24 mmol/L (22-30); Chloride 106 mmol/L (98-107); Estimated Creatinine Clearance 75 ml/min; Glucose 87 mg/dl (70-99); Phosphorus 3.8 mg/dl (2.5-4.5); Potassium 3.7 mmol/L (3.5-5.1); Sodium 139 mmol/L (135-145); Total Bilirubin 1.6 mg/dl (0.2-1.3); eGFR > 60.00
[2025-01-09 07:21] LABS: Magnesium 2.3 mg/dl (1.6-2.3)
--- NOTE | 2025-01-09 07:33 | W.PN.HOSP.TC ---
Today's Communication/Plan
-
Patient appears to be back at his baseline and is medically stable. Will move forward with discharge planning. Recommend outpatient EEG. Recommend follow-up CTA of the head and neck. Recommend outpatient neurology follow-up.
Assessment / Plan
Assessment / Plan
HPI: Patient is a 79-year-old with a medical history significant for seizure disorder treated with lamotrigine, hypertension, coronary artery disease, tobacco use who was recently admitted to this hospital for acute pulmonary edema and was found to
have severely reduced left ventricular systolic function of 20 to 25% status post cath showing no obstructive coronary artery disease. He presents to the emergency department following a fall at home. His most recent hospitalization was notable
for Takotsubo cardiomyopathy with an ejection fraction of 20 to 25%. He was started on Lasix 20 mg daily as needed for weight gain and was discharged at a weight of 97.8 kg. His lisinopril was discharged continued and he was started on Toprol-XL
12.5 mg in the morning and 25 mg in the evening prior to discharge. On the day of his presentation he was having episodes of tremor which became so exacerbated it led to him falling out of his chair. The patient and his family reported about 1
week of tremors prior to his presentation they reported that he does have some tremors prior but over the last 2 weeks they increased in frequency and intensity. The patient had an increase in his lamotrigine 2 weeks ago and the family associates
this medication adjustment with the increase in tremors. The tremor caused difficulty in ambulation and he felt that he could not walk forward without falling. He has not had any fall from standing at home. His most recent presentation occurred
at the dinner table where he started to have severe or large amplitude tremors of his upper and lower extremities causing him to fall out of his chair. He complained of left-sided thoracic pain after the fall. He was alert and oriented during the
episode and immediately after. The patient does not recall losing consciousness at all during any of the episode. The patient was brought in by EMS. Patient denied cough, wheezing, or shortness of breath. The patient denied any flulike symptoms.
Patient denied any fever or chills. Patient reported difficulty initiating urination but denies dysuria, flank pain, or hematuria. Patient was admitted to [facility] for fall secondary to ataxia/tremors.
Assessment/Plan:
-Ataxia/tremors:
Patient appears to present with ataxia and tremors and history taken at the bedside does not suggest seizure but cannot rule out focal seizure activity.
Possibly associated with increased lamotrigine
Patient has been admitted to telemetry to monitor for possible syncopal event given prior echocardiogram showing reduced ejection fraction
EEG ordered
MRI conducted on 01/08/2025 show multiple small foci of hemosiderin deposition grouped in the right side of the medulla, right lilibeth, and right middle cerebellar peduncle suggesting small chronic intraparenchymal microhemorrhages which have increased
compared to prior MRI. Possible cerebral vascular malformation or hypertensive microangiopathy. Moderate bilateral frontal and parietal lobe volume loss. 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
leukoaraiosis).
Orthostatics
Chest x-ray to rule out fracture of the rib
Appreciate neurology consult
PT OT eval and treat
Lamictal dose lowered to 100 mg p.o. twice daily from 200 mg p.o. twice daily
-Takotsubo cardiomyopathy:
Echocardiogram conducted on 11/02/2024 showed severely reduced left ventricular systolic function with severe hypokinesis of the mid to apical wall segments and hyperdynamic basal wall segments. Estimated left ventricular ejection fraction of 20
to 25%. Mild mitral regurgitation. Mild tricuspid regurgitation.
Cardiac catheterization conducted on 11/02/2024 showed obstructive coronary artery disease in the right dominant system however no clear culprit lesion to explain severe cardiomyopathy with ejection fraction of 25%. LAD is only borderline
hemodynamically significant, diagonal branch with possible hazy lesion has TIMI3 flow, RCA disease moderate, and severe distal LCx disease is a very small territory. Overall, picture more consistent with non-ischemic etiology of severe
cardiomyopathy.
Euvolemia on exam
Follow daily weights and I's and O's
Continue lisinopril with hold parameter
Lasix if fluid retention
Continue aspirin and Farxiga
-Asthma + COPD:
Continue albuterol
-History of tobacco use:
Quit smoking 25 years ago. Used to be a 2 pack/day smoker for 20 years
-Qqauauc-Yimsu-exkqa syndrome:
Continue pregabalin
-Seizure disorder:
Lamictal dose lowered to 100 mg p.o. twice daily from 200 mg p.o. twice daily
-Essential hypertension:
Continue lisinopril
-Coronary artery disease:
Continue aspirin
-Dementia/depression:
Continue sertraline and memantine
-Hypothyroidism:
Continue levothyroxine
-GERD:
Continue lansoprazole
-Hyperlipidemia:
Continue ezetimibe
DVT prophylaxis: Lovenox sq
CODE STATUS: DNR
Imaging:
-Head CT conducted on 01/07/2025:
No evidence of acute intracranial abnormality
-Brain MRI conducted on 01/08/2025:
Multiple small foci of hemosiderin deposition grouped in the right side of the medulla, right lilibeth, and right middle cerebellar peduncle suggesting small chronic intraparenchymal microhemorrhages which have increased compared with the prior MRI
examinations. Diagnostic possibilities are (1) a cerebral vascular malformation or (2) hypertensive microangiopathy.
Moderate bilateral frontal and parietal lobe volume loss.
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
Severe multilevel discogenic degenerative disease and facet joint arthrosis in the cervical spine causing mild multilevel spinal cord compression.
Anticipated Discharge: 24 - 48 hours
Subjective/Interval History
-
Met with patient at the bedside. Overall, he is doing much better and is hoping to be discharged home today. He states that his tremors have greatly reduced and are manageable. The patient also made a remark about how 'unsweet' the food is at the
hospital.
Objective Data
-
Labs:
Laboratory Results
01/09/25
06:18
WBC 6.5
Hgb 12.9 L
Hct 38.9 L
Plt Count 193
Sodium 139
Potassium 3.7
Chloride 106
Carbon Dioxide 24
BUN 11
Creatinine 0.9
Glucose 87
Calcium 9.1
Total Bilirubin 1.6 H
AST 27
ALT 13
Alkaline Phosphatase 75
Vital Signs:
Vital Signs
Temp Pulse Resp BP Pulse Ox
97.6 F 56 16 122/65 94
01/09/25 03:04 01/09/25 03:04 01/09/25 03:04 01/09/25 03:04 01/09/25 03:04
I&O
01/08/25 01/09/25 01/10/25
06:59 06:59 06:59
Intake Total 360 / 360
Output Total 200 / 200
Balance -200 / -200 360 / 360
Review of Systems
-
History Source: Patient
Constitutional: Reports No Symptoms
EENT: Reports No Symptoms Reported
Respiratory: Reports No Symptoms
Cardiac: Reports No Symptoms
Abdomen/GI: Reports No Symptoms
Breast: Reports No Symptoms
Genitourinary: Reports No Symptoms
Musculoskeletal: Reports No Symptoms
Skin: Reports No Symptoms
Neuro: Reports No Symptoms
Endocrine: Reports No Symptoms
Hematologic / Lymphatic: Reports No Symptoms
Physical Exam
-
General: Well Developed, Well Nourished and No Apparent Distress
HEENT: Normocephalic
Respiratory: Clear to Auscultation
Cardiac: S1/S2; Negative Murmur, Rub or JVD
Breast: Deferred by me
GI: Soft, Nontender, Nondistended and Normal Bowel Sounds
Rectal: Deferred by Provider
Genito-urinary: Deferred by me
Musculoskeletal: No Clubbing, No Cyanosis and No Edema
Skin: Warm
Neuro: Awake, Alert, Oriented and AO x 3
[2025-01-09 08:02] VITALS: BP 164/77
[2025-01-09] MEDS: FARXIGA 10 MG PO (08:17)
[2025-01-09] MEDS: LOW STRENGTH ASPIRIN 81 MG PO (08:17)
[2025-01-09] MEDS: PROTONIX 40 MG PO (08:17)
[2025-01-09] MEDS: ZOLOFT 100 MG PO (08:18)
[2025-01-09] MEDS: ZESTRIL 10 MG PO (08:18)
[2025-01-09] MEDS: LAMICTAL 100 MG PO ×2 (08:18→19:51)
[2025-01-09] MEDS: NAMENDA 10 MG PO ×2 (08:18→19:51)
[2025-01-09] MEDS: LYRICA 100 MG PO ×3 (08:20→22:01)
--- NOTE | 2025-01-09 11:36 | W.PN.UPDATE ---
Update Note
Progress Note Update
Summary from admission: 79 y/o M PMHx of seizure, hypertension and CAD who recently had a nonobstructive cardiomyopathy with EF of 20 to 25% and newly started on metoprolol and PRN Lasix p/w worsening tremors and a fall. The patient is a picture of
intentional tremors associated with ambulation. Today he had tremors even while sitting down. Seems to be associated with the recent increase in his Lamictal. The reasoning for increasing the Lamictal was not clear. Denies any loss of
consciousness. He has had no generalized tonic-clonic seizures. CT of the head is unremarkable. Electrolytes BUN/creatinine are all in the normal range. No signs of acute CHF exacerbation at this time. No signs of acute infection either. No
focal neurological deficits on the exam.
I saw and evaluated the patient. I reviewed the resident�s note and agree with findings and plan as documented in the resident�s note.
Pt without acute complaints.
Gen: NAD, Awake and alert
Eyes: EOMI, PERRLA, no scleral icterus.
Neck: supple.
CV: RRR, +S1/S2, no m/r/g.
Resp: CTAB, no rales, wheezes, or rhonchi.
Abd: +BS, soft, NT, ND
Skin: No rashes.
Neuro: CN 2-12 intact, non-focal.
Psych: Normal mood and affect.
CT brain: No evidence of acute intracranial abnormality.
MRI brain:
1. Multiple small foci of hemosiderin deposition grouped in the right side of the medulla, right lilibeth, and right middle cerebellar peduncle suggesting small chronic intraparenchymal microhemorrhages which have increased compared with the prior MRI
examinations. Diagnostic possibilities are (1) a cerebral vascular malformation or (2) hypertensive microangiopathy.
2. Moderate bilateral frontal and parietal lobe volume loss.
3. 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
4. Severe multilevel discogenic degenerative disease and facet joint arthrosis in the cervical spine causing mild multilevel spinal cord compression.
EEG: This study was suggestive of mild diffuse cortical dysfunction without focal abnormality. No seizures were recorded.
CTA head/neck: No CT angiographic evidence for hemodynamically significant stenosis involving the carotid bulbs or proximal internal carotid arteries bilaterally. Mild narrowing of the distal M1 portion of the left MCA, with diameter reduction of
25%. No significant narrowing involving the vertebral or basilar arteries.
Ataxia/Tremors:
-h/o seizure d/o
-HPI not consistent with generalized seizure. However cannot rule out focal seizure activity. Possibly movement disorder associate w/ with increased lamotrigine 2 weeks [employer].
-cont tele to monitor for possible syncopal event given h/o depressed EF
-Lamictal level was normal and Lamictal increased back to 200mg PO BID
-MRI brain above, notable for R-medulla/remi/middle cerebellar peduncle suggesting small chronic intraparenchymal microhemorrhages which have increased compared with the prior MRI examinations. Diagnostic possibilities are (1) a cerebral vascular
malformation or (2) hypertensive microangiopathy.
-CTA head/neck without hemodynamically significant stenoses
-EEG above and without seizure activity
-neuro following, recommending cardiology evaluation (Holter), outpt cEEG
-orthostatic VS NEG
-PT/OT
-COVID/Flu NEG
Other problems:
Chronic HFrEF: cont Farxiga/ACEi
CAD: cont ASA/statin
Asthma and COPD, not in acute exac: Albuterol PRN
History of tobacco abuse disorder
Zsoqhsv-Cfcxa-Qfwii syndrome
Essential hypertension: cont ACEi
Dementia: cont Namenda
Depression: cont Zoloft
Hypothyroidism: cont Synthroid, TSH normal
GERD: cont PPI
HLD: cont statin
DNR/Lovenox
Dispo: d/c today if cleared by cardiology
[2025-01-09 11:37] VITALS: BP 132/76
--- NOTE | 2025-01-09 13:24 | CON.CAR ---
Addendum entered and electronically signed by Rhett Trujillo MD 01/09/25 15:15:
I saw and examined the patient.
The INSIDE STEWARD/STEWARDESS's note was reviewed and I agree with the note.
79-year-old male with recent diagnosis of Takotsubo cardiomyopathy with ejection fraction 20 to 25%, hypertension, coronary artery disease and seizure disorder who presented after a fall. Patient was sitting at dining room table with his and
he recalls that his arms just were shaking uncontrollably and he was trying to tell his to call an ambulance and he could not get the words out he then fell off the chair no loss of consciousness he states he could not get himself up back onto
the chair. also confirms that there was no loss of consciousness. Exact etiology unclear. Patient's remained hemodynamically stable and is in sinus rhythm. Neurology has been consulted.
Description of his symptoms would be quite atypical for symptoms related to arrhythmia or hypotension. There was no documented syncope no clear description of near syncope. Patient's been hemodynamically stable and no arrhythmias. ECG shows sinus
rhythm with T wave abnormality which is less prominent than it was on his last admission. Patient's thinks that he has had issues with balance and other symptoms related to his Lamictal and wonders if the adjustment in dosing has had impact.
Would defer to neurology regarding this question. Based on the above would suggest the following
-Monitor on telemetry
-Repeat echocardiogram
-Defer to neurology regarding management of seizures and dosing of Lamictal
Original Note:
Consultation
Consultation Request
Date/Time Consultation Requested: 01/09/25 1142
Date/Time Consultation Performed: 01/09/25 1325
Requesting Provider: Dr. Hartmann
Performing Provider: Aleah DURAN for Dr. Trujillo
Reason for Consultation: fall
Medical History
-
Chief Complaint: fall
History of Present Illness:
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 He recently had his lamotrigine increased as OP by neurology, he thinks about 1 week ago. He
came in on 01/07/25 after he had an episode of moving his arms involuntarily, couldn't speak to his right, then became unbalanced and had a fall. He did not pass out and was not dizzy or light-headed. We are consulted to evaluate for potential
cardiac cause. His telemetry is stable without any concerning arrhythmia. His orthostatics are unremarkable. He is feeling 'great'.
Past Medical History
Past Medical History: CAD, COPD, HTN, Seizures and Other (as above)
Social History
Personal:
Living: With Family
Family History
Family History: Reviewed & Not Pertinent
Allergies / Home Medications
Allergy/AdvReac Type Severity Reaction Status Date / Time
Benzodiazepines Allergy SIMVA - Verified 11/01/24 10:17
headache,blurry
vision
Penicillins Allergy Hives Verified 11/01/24 10:17
�Medication �Instructions �Recorded �Confirmed �Type
cholecalciferol (vitamin D3) 25 1,000 unit PO DAILY 09/04/16 01/07/25 History
mcg (1,000 unit) capsule (Vitamin
D3)
levothyroxine 25 mcg tablet 25 mcg PO DAILY 09/04/16 01/07/25 History
sertraline 100 mg tablet 100 mg PO DAILY 09/04/16 01/07/25 History
diphenhydramine HCl 25 mg tablet 25 mg PO HS 11/01/24 01/07/25 History
(Sleep Aid (diphenhydramine))
ezetimibe 10 mg tablet (Zetia) 10 mg PO QPM 11/01/24 01/07/25 History
lamotrigine 200 mg tablet 200 mg PO BID 11/01/24 01/07/25 History
(Lamictal)
lansoprazole 15 mg capsule,delayed 15 mg PO DAILY 11/01/24 01/07/25 History
release
memantine 10 mg tablet 10 mg PO BID 11/01/24 01/07/25 History
pregabalin 100 mg capsule (Lyrica) 100 mg PO TID 11/01/24 01/07/25 History
therapeutic multivitamin 1 tab PO DAILY 11/01/24 01/07/25 History
vitamin E 268 mg (400 unit) capsule 268 mg PO DAILY 11/01/24 01/07/25 History
aspirin 81 mg chewable tablet 81 mg PO DAILY #30 tabs 11/06/24 01/07/25 Rx
rosuvastatin 20 mg tablet 20 mg PO QPM #30 tabs 11/06/24 01/07/25 Rx
albuterol sulfate 90 mcg/actuation 2 puff inhalation R Q6HPRN PRN 01/07/25 01/07/25 History
aerosol inhaler shortness of breath or wheezing
dapagliflozin propanediol 10 mg 10 mg PO DAILY 01/07/25 01/07/25 History
tablet (Farxiga)
furosemide 20 mg tablet 20 mg PO DAILYPRN PRN Weight gain 01/07/25 01/07/25 History
hydrocodone 10 mg-acetaminophen 1 tab PO TIDPRN PRN severe Pain 01/07/25 01/07/25 History
325 mg tablet
lisinopril 10 mg tablet 10 mg PO DAILY 01/07/25 01/07/25 History
sertraline 50 mg tablet 50 mg PO NOON 01/07/25 01/07/25 History
Review of Systems
-
History Source: Patient
All other systems: Negative unless noted
Neurological: Other (tremors, fall, speech difficulty)
Physical Exam
Vital Signs
Temp Pulse Resp BP Pulse Ox
97.6 F 67 18 132/76 94
01/09/25 11:37 01/09/25 11:37 01/09/25 11:37 01/09/25 11:37 01/09/25 11:37
Lab Results
01/09/25 06:18
01/09/25 06:18
Physical Exam
General: Well Developed, Well Nourished and No Apparent Distress
HEENT: Normocephalic and Anicteric
Respiratory: Clear and Non Labored Respirations
Cardiac: Regular Rhythm
Skin: Warm and Dry
Neuro: AO x 3
Psych: Calm
Impression / Plan
-
Tremors, speech and balance issue, fall:
-does not sound cardiac. Did not lose consciousness. Denies any dizziness or light-headedness. Neurology is following with work-up underway.
-telemetry shows SR without any concerning arrhythmia, orthos unremarkable. We will update echo.
Takotsubo CM:
-repeat echo in AM
-he is on Farxiga and lisinopril currently and tolerating, though he thinks he was off these as OP. Feeling quite well no, so okay to continue. Per notes, metoprolol made him dizzy.
CAD:
-stable without CP
-continue ASA, statin
Seizures:
-recent med changes per patient
-neuro on the case
Data:
Cath 11/02/24: LAD: large vessel giving rise to a large early D1 and several smaller diagonal branches. There is diffuse moderate disease in the proximal to mid-vessel. The proximal diagonal has a possible proximal hazy plaque. There is TIMI3 flow
throughout. LCx: large vessel giving rise to a large OM1, large OM2 and small LPL. There is severe disease in the distal LCx before the LPL and otherwise mild disease. RCA: large vessel giving rise to a moderate caliber RPDA and small RPL system,
and providing R-L collaterals to what is likely a small distal LPL branch. There is a 60% stenosis in the distal RCA with NATALIE 3 flow distally and mild disease otherwise. There is obstructive coronary artery disease in a right dominant system,
however, no clear culprit lesion to explain severe cardiomyopathy with EF 25%. LAD is only borderline hemodynamically significant, diagonal branch with possible hazy lesion has TIMI3 flow, RCA disease moderate, and severe distal LCx disease is a
very small territory. Overall, picture more consistent with non-ischemic etiology of severe cardiomyopathy.
Echo 11/02/24: Severely reduced left ventricular systolic function with severe hypokinesis of the mid to apical wall segments and hyperdynamic basal wall segments. Estimated left ventricular EF 20-25%. Overall findings are suggestive of stress
cardiomyopathy (Takotsubo's) versus multivessel coronary artery disease.
Data Reviewed
-
EKG: Tracing Personally Visualized and interpreted (NSR 65 BPM, anterolateral t wave inversions (improved from previous))
CT Scan: Report Reviewed by me (head CT: no acute abnormality )
Medical Tests (Nuc Med, Echo etc): Report Reviewed by me (cath and echo as noted)
Labs: Labs Reviewed by me
[2025-01-09 14:56] VITALS: BP 148/78
[2025-01-09] MEDS: ZOLOFT 50 MG PO (15:52)
--- NOTE | 2025-01-09 16:04 | CM ---
Met with patient to obtain information for assessment. Patient stated that he lives with his in a modular home, all one level with 5 steps to enter. He described himself as independent with all of his ADLs, personal care, dressing and bathing.
Patient can do all director auto, cooking, cleaning and laundry. He uses a walker to assist with ambulation. He has had VN in the past through , he stated recently. He has never been to a SNF.
He has a prescription plan and uses, [facility] and [facility] for all of his medications.
Patient's PCP is, Karlee Tenorio.
Patient stated that he feels like he can return home and won't have any needs.
Plan: Case management will continue to follow and assist with discharge planning. Home, no needs, will watch for VN.
[2025-01-09] MEDS: LOVENOX 40 MG SC (17:28)
[2025-01-09] MEDS: CRESTOR 20 MG PO (17:30)
[2025-01-09] MEDS: ZETIA 10 MG PO (17:30)
[2025-01-09 19:00] VITALS: BP 154/79
[2025-01-09] MEDS: TYLENOL 650 MG PO (22:04)
[2025-01-09 23:00] VITALS: BP 150/76
[2025-01-10 03:00] VITALS: BP 150/71
[2025-01-10] MEDS: SYNTHROID 25 MCG PO (05:59)
[2025-01-10 06:00] VITALS: BMI 27.2
[2025-01-10 06:39] LABS: Hemoglobin 13.2 g/dL (13.0-18.0); Mean Corpuscular Hgb 30.8 pg (27.0-31.0); Mean Corpuscular Volume 93.5 fL (80.0-94.0); Mean Platelet Volume 9.2 fL (7.4-10.4); Platelet Count 196 10^3/uL (130-400); Red Blood Cell Count 4.28 10^6/uL (4.70-6.10); Red Cell Dist. Width 12.5 % (11.5-14.5); White Blood Cell Count 7.7 10^3/uL (4.8-10.8)
[2025-01-10 07:00] VITALS: BP 130/58
[2025-01-10 07:13] LABS: ALT (SGPT) 13 U/L (0-50); AST (SGOT) 25 U/L (17-59); Albumin 3.8 g/dl (3.5-5.0); Alkaline Phosphatase 75 U/L (38-126); Blood Urea Nitrogen 14 mg/dl (9-20); Calcium 9.1 mg/dl (8.4-10.2); Carbon Dioxide 24 mmol/L (22-30); Chloride 105 mmol/L (98-107); Estimated Creatinine Clearance 75 ml/min; Glucose 82 mg/dl (70-99); Magnesium 2.2 mg/dl (1.6-2.3); Potassium 4.1 mmol/L (3.5-5.1); Sodium 138 mmol/L (135-145); eGFR > 60.00
[2025-01-10 07:17] VITALS: BP 130/58
--- NOTE | 2025-01-10 07:40 | W.PN.HOSP.TC ---
Today's Communication/Plan
-
Patient appears to be back at his baseline. His tremors have resolved and he has no complaints. Awaiting echocardiogram results�if the results are unremarkable and the patient is cleared by cardiology we will move forward with discharge planning.
Assessment / Plan
Assessment / Plan
Assessment/Plan:
-Ataxia/tremors:
Patient appears to present with ataxia and tremors and history taken at the bedside does not suggest seizure but cannot rule out focal seizure activity.
Possibly associated with increased lamotrigine
Patient has been admitted to telemetry to monitor for possible syncopal event given prior echocardiogram showing reduced ejection fraction
EEG ordered
MRI conducted on 01/08/2025 show multiple small foci of hemosiderin deposition grouped in the right side of the medulla, right lilibeth, and right middle cerebellar peduncle suggesting small chronic intraparenchymal microhemorrhages which have increased
compared to prior MRI. Possible cerebral vascular malformation or hypertensive microangiopathy. Moderate bilateral frontal and parietal lobe volume loss. 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
leukoaraiosis).
Orthostatics
Chest x-ray to rule out fracture of the rib
Appreciate neurology consult
PT OT eval and treat
Lamictal dose lowered to 100 mg p.o. twice daily from 200 mg p.o. twice daily
-Takotsubo cardiomyopathy:
Echocardiogram conducted on 11/02/2024 showed severely reduced left ventricular systolic function with severe hypokinesis of the mid to apical wall segments and hyperdynamic basal wall segments. Estimated left ventricular ejection fraction of 20
to 25%. Mild mitral regurgitation. Mild tricuspid regurgitation.
Cardiac catheterization conducted on 11/02/2024 showed obstructive coronary artery disease in the right dominant system however no clear culprit lesion to explain severe cardiomyopathy with ejection fraction of 25%. LAD is only borderline
hemodynamically significant, diagonal branch with possible hazy lesion has TIMI3 flow, RCA disease moderate, and severe distal LCx disease is a very small territory. Overall, picture more consistent with non-ischemic etiology of severe
cardiomyopathy.
Euvolemia on exam
Follow daily weights and I's and O's
Continue lisinopril with hold parameter
Lasix if fluid retention
Continue aspirin and Farxiga
Awaiting echocardiogram study results. Will discharge patient if echo unremarkable, patient is medically stable, and if cleared by cardiology.
-Asthma + COPD:
Continue albuterol
-History of tobacco use:
Quit smoking 25 years ago. Used to be a 2 pack/day smoker for 20 years
-Mufywfa-Vgzec-ltdtr syndrome:
Continue pregabalin
-Seizure disorder:
Lamictal dose lowered to 100 mg p.o. twice daily from 200 mg p.o. twice daily
-Essential hypertension:
Continue lisinopril
-Coronary artery disease:
Continue aspirin
-Dementia/depression:
Continue sertraline and memantine
-Hypothyroidism:
Continue levothyroxine
-GERD:
Continue lansoprazole
-Hyperlipidemia:
Continue ezetimibe
DVT prophylaxis: Lovenox sq
CODE STATUS: DNR
Imaging:
-Head CT conducted on 01/07/2025:
No evidence of acute intracranial abnormality
-Brain MRI conducted on 01/08/2025:
Multiple small foci of hemosiderin deposition grouped in the right side of the medulla, right lilibeth, and right middle cerebellar peduncle suggesting small chronic intraparenchymal microhemorrhages which have increased compared with the prior MRI
examinations. Diagnostic possibilities are (1) a cerebral vascular malformation or (2) hypertensive microangiopathy.
Moderate bilateral frontal and parietal lobe volume loss.
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
Severe multilevel discogenic degenerative disease and facet joint arthrosis in the cervical spine causing mild multilevel spinal cord compression.
Anticipated Discharge: Within 24 hours
Subjective/Interval History
-
Date of Service: January 10, 2025
Met with patient at the bedside. He is doing well and would like to be discharged home today if medically cleared. He is in high spirits and made jokes about being a better kickball player than most. He has no complaints of tremors anymore.
Objective Data
-
Labs:
Laboratory Results
01/10/25
06:09
WBC 7.7
Hgb 13.2
Hct 40.0
Plt Count 196
Sodium 138
Potassium 4.1
Chloride 105
Carbon Dioxide 24
BUN 14
Creatinine 0.9
Glucose 82
Calcium 9.1
Total Bilirubin 2.0 H
AST 25
ALT 13
Alkaline Phosphatase 75
Vital Signs:
Vital Signs
Temp Pulse Resp BP Pulse Ox
98.3 F 64 20 130/58 95
01/10/25 07:00 01/10/25 07:00 01/10/25 07:00 01/10/25 07:00 01/10/25 07:00
I&O
01/09/25 01/10/25 01/11/25
06:59 06:59 06:59
Intake Total 360 / 360 960 / 960
Output Total 100 / 100
Balance 360 / 360 860 / 860
Review of Systems
-
History Source: Patient
All other systems: Reviewed and negative
Constitutional: Reports No Symptoms
EENT: Reports No Symptoms Reported
Respiratory: Reports No Symptoms
Cardiac: Reports No Symptoms
Abdomen/GI: Reports No Symptoms
Breast: Reports No Symptoms
Genitourinary: Reports No Symptoms
Musculoskeletal: Reports No Symptoms
Skin: Reports No Symptoms
Neuro: Reports No Symptoms
Endocrine: Reports No Symptoms
Hematologic / Lymphatic: Reports No Symptoms
Allergy / Immunology: Reports No Symptoms
--- NOTE | 2025-01-10 08:14 | W.PN.CD ---
Today's Communication / Plan
-
continue current medication
Impression / Plan
-
Tremors, speech and balance issue, fall:
-does not sound cardiac. Did not lose consciousness. Denies any dizziness or light-headedness. Neurology is following with work-up underway.
-telemetry shows SR without any concerning arrhythmia, orthos unremarkable.
-We will update echo.
Takotsubo CM:
-repeat echo in AM
-he is on Farxiga and lisinopril currently and tolerating, op meds list different than meds he was reconciled to, seems to be tolerating so would like to continue
-ask him to call to bring in accurate list.
- Feeling quite well
-metoprolol made him dizzy.
CAD:
-stable without CP
-continue ASA, statin
Seizures:
-recent med changes per patient
-neuro on the case
Data:
Cath 11/02/24: LAD: large vessel giving rise to a large early D1 and several smaller diagonal branches. There is diffuse moderate disease in the proximal to mid-vessel. The proximal diagonal has a possible proximal hazy plaque. There is TIMI3 flow
throughout. LCx: large vessel giving rise to a large OM1, large OM2 and small LPL. There is severe disease in the distal LCx before the LPL and otherwise mild disease. RCA: large vessel giving rise to a moderate caliber RPDA and small RPL system,
and providing R-L collaterals to what is likely a small distal LPL branch. There is a 60% stenosis in the distal RCA with NATALIE 3 flow distally and mild disease otherwise. There is obstructive coronary artery disease in a right dominant system,
however, no clear culprit lesion to explain severe cardiomyopathy with EF 25%. LAD is only borderline hemodynamically significant, diagonal branch with possible hazy lesion has TIMI3 flow, RCA disease moderate, and severe distal LCx disease is a
very small territory. Overall, picture more consistent with non-ischemic etiology of severe cardiomyopathy.
Echo 11/02/24: Severely reduced left ventricular systolic function with severe hypokinesis of the mid to apical wall segments and hyperdynamic basal wall segments. Estimated left ventricular EF 20-25%. Overall findings are suggestive of stress
cardiomyopathy (Takotsubo's) versus multivessel coronary artery disease.
Subjective:
feels well without complaint
Physical Exam
Vital Signs/Labs
Vital Signs
Temp Pulse Resp BP Pulse Ox
98.3 F 64 20 130/58 95
01/10/25 07:00 01/10/25 07:00 01/10/25 07:00 01/10/25 07:00 01/10/25 07:00
01/09/25 01/10/25 01/11/25
06:59 06:59 06:59
Actual Weight 90.945 kg
01/10/25 06:09
01/10/25 06:09
Magnesium 2.2 mg/dl (1.6-2.3) 01/10/25 06:09
TSH 1.40 uIU/ml (0.47-4.68) 01/08/25 06:43
Physical Exam
Constitutional: No acute distress
Cardiovascular: Pedal edema is absent, JVD pressure is normal, Systolic murmur absent, Diastolic murmur absent and Rhythm/rate is irregular
Respiratory: Respiratory effort normal, Lungs clear to auscul., Wheeze Absent, Crackles Absent and Rhonchi Absent
Neuro/Psych: AO x 3
Data Reviewed
-
Date of Service: January 10, 2025
Medical Decision Making: Review of Case with other Provider (Dr Shelby, will continue current medications)
EKG: Other (sinus)
--- NOTE | 2025-01-10 08:35 | W.PN.UPDATE ---
Addendum entered and electronically signed by Harmeet Shelby MD 01/10/25 14:16:
Total time spent on d/c = 35 min. This included today's physical exam, progress note, review of laboratory and diagnostic data, preparation of discharge documents and prescriptions, and discussions about the pt's hospital course and discharge plan
with the patient and other medical affairs specialist involved in the patient's care.
Original Note:
Update Note
Progress Note Update
Summary from admission: 79 y/o M PMHx of seizure, hypertension and CAD who recently had a nonobstructive cardiomyopathy with EF of 20 to 25% and newly started on metoprolol and PRN Lasix p/w worsening tremors and a fall. The patient is a picture of
intentional tremors associated with ambulation. Today he had tremors even while sitting down. Seems to be associated with the recent increase in his Lamictal. The reasoning for increasing the Lamictal was not clear. Denies any loss of
consciousness. He has had no generalized tonic-clonic seizures. CT of the head is unremarkable. Electrolytes BUN/creatinine are all in the normal range. No signs of acute CHF exacerbation at this time. No signs of acute infection either. No
focal neurological deficits on the exam.
I saw and evaluated the patient. I reviewed the resident�s note and agree with findings and plan as documented in the resident�s note.
No new complaints.
Gen: NAD, Awake and alert
Eyes: EOMI, PERRLA, no scleral icterus.
Neck: supple.
CV: RRR, +S1/S2, no m/r/g.
Resp: CTAB, no rales, wheezes, or rhonchi.
Abd: +BS, soft, NT, ND
Skin: No rashes.
Neuro: CN 2-12 intact, non-focal.
Psych: Normal mood and affect.
CT brain: No evidence of acute intracranial abnormality.
MRI brain:
1. Multiple small foci of hemosiderin deposition grouped in the right side of the medulla, right lilibeth, and right middle cerebellar peduncle suggesting small chronic intraparenchymal microhemorrhages which have increased compared with the prior MRI
examinations. Diagnostic possibilities are (1) a cerebral vascular malformation or (2) hypertensive microangiopathy.
2. Moderate bilateral frontal and parietal lobe volume loss.
3. 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
4. Severe multilevel discogenic degenerative disease and facet joint arthrosis in the cervical spine causing mild multilevel spinal cord compression.
EEG: This study was suggestive of mild diffuse cortical dysfunction without focal abnormality. No seizures were recorded.
CTA head/neck: No CT angiographic evidence for hemodynamically significant stenosis involving the carotid bulbs or proximal internal carotid arteries bilaterally. Mild narrowing of the distal M1 portion of the left MCA, with diameter reduction of
25%. No significant narrowing involving the vertebral or basilar arteries.
Ataxia/Tremors:
-h/o seizure d/o
-HPI not consistent with generalized seizure. However cannot rule out focal seizure activity. Possibly movement disorder associate w/ with increased lamotrigine 2 weeks [employer].
-cont tele to monitor for possible syncopal event given h/o depressed EF (although as per discussion with Dr. Rob today, syncopal event less likely)
-Lamictal level was normal and Lamictal increased back to 200mg PO BID
-MRI brain above, notable for R-medulla/remi/middle cerebellar peduncle suggesting small chronic intraparenchymal microhemorrhages which have increased compared with the prior MRI examinations. Diagnostic possibilities are (1) a cerebral vascular
malformation or (2) hypertensive microangiopathy.
-CTA head/neck without hemodynamically significant stenoses
-orthostatic VS NEG
-COVID/Flu NEG
-EEG above and without seizure activity
-neuro following, recommended cardiology evaluation including Holter after d/c, outpt cEEG
-Echo pending, d/c after echo
-PT/OT
Other problems:
Chronic HFrEF: cont Farxiga/ACEi
CAD: cont ASA/statin
Asthma and COPD, not in acute exac: Albuterol PRN
History of tobacco abuse disorder
Aealnah-Zrmmy-Rmftr syndrome
Essential hypertension: cont ACEi
Dementia: cont Namenda
Depression: cont Zoloft
Hypothyroidism: cont Synthroid, TSH normal
GERD: cont PPI
HLD: cont statin
DNR/Lovenox
[2025-01-10] MEDS: LAMICTAL 100 MG PO (09:09)
[2025-01-10] MEDS: ZESTRIL 10 MG PO (09:09)
[2025-01-10] MEDS: LOW STRENGTH ASPIRIN 81 MG PO (09:09)
[2025-01-10] MEDS: LYRICA 100 MG PO (09:09)
[2025-01-10] MEDS: PROTONIX 40 MG PO (09:09)
[2025-01-10] MEDS: FARXIGA 10 MG PO (09:09)
[2025-01-10] MEDS: ZOLOFT 100 MG PO (09:10)
[2025-01-10] MEDS: NAMENDA 10 MG PO (09:11)
[2025-01-10 11:00] VITALS: BP 109/73
[2025-01-10 11:10] VITALS: BP 119/69; PULSE 80; O2SAT 95
[2025-01-10 12:02] VITALS: BP 103/70
--- NOTE | 2025-01-10 16:39 | W.DCSUMMARY ---
Discharge Summary
Discharge Data
Date of Admission: 01/07/25
Date of Discharge: 01/10/25
-
Pending Results: No
Hospital Course
Discharging Physician : Harmeet Shelby MD
Disposition : Home
Primary care physician : Karlee Tenorio
Principal Discharge diagnosis : Ataxia and tremors
Chronic Discharge diagnosis :
Essential hypertension
Chronic systolic heart failure
Tremor
Ataxia
COPD
Asthma
Seizure disorder
Nodsccr-Nicpa-Gusoy disease
Takotsubo syndrome
Hospital Course : Patient is a 79-year-old with a medical history significant for seizure disorder treated with lamotrigine, hypertension, coronary artery disease, tobacco use who was recently admitted to this hospital for acute pulmonary edema and
was found to have severely reduced left ventricular systolic function of 20 to 25% status post cath showing no obstructive coronary artery disease. He presents to the emergency department following a fall at home. His most recent hospitalization
was notable for Takotsubo cardiomyopathy with an ejection fraction of 20 to 25%. He was started on Lasix 20 mg daily as needed for weight gain and was discharged at a weight of 97.8 kg. His lisinopril was discharged continued and he was started on
Toprol-XL 12.5 mg in the morning and 25 mg in the evening prior to discharge. On the day of his presentation he was having episodes of tremor which became so exacerbated it led to him falling out of his chair. The patient and his family reported
about 1 week of tremors prior to his presentation they reported that he does have some tremors prior but over the last 2 weeks they increased in frequency and intensity. The patient had an increase in his lamotrigine 2 weeks ago and the family
associates this medication adjustment with the increase in tremors. The tremor caused difficulty in ambulation and he felt that he could not walk forward without falling. He has not had any fall from standing at home. His most recent presentation
occurred at the dinner table where he started to have severe or large amplitude tremors of his upper and lower extremities causing him to fall out of his chair. He complained of left-sided thoracic pain after the fall. He was alert and oriented
during the episode and immediately after. The patient does not recall losing consciousness at all during any of the episode. The patient was brought in by EMS. Patient denied cough, wheezing, or shortness of breath. The patient denied any
flulike symptoms. Patient denied any fever or chills. Patient reported difficulty initiating urination but denies dysuria, flank pain, or hematuria. Patient was admitted to [facility] for fall secondary to ataxia/tremors.
Neurology was consulted. MRI conducted on 01/08/2025 showed multiple small foci of hemosiderin deposition grouped in the right side of the medulla, right lilibeth, and right middle cerebellar peduncle suggesting small chronic intraparenchymal
microhemorrhages which have increased compared to prior MRI. Possible cerebral vascular malformation or hypertensive microangiopathy. Moderate bilateral frontal and parietal lobe volume loss. 4.5 mm subcortical white matter lesion in the left
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 The patient remained euvolemic on admission and daily I's and O's were followed. Lisinopril with hold parameters were continued. The patient's Lamictal dose was lowered to 100 mg p.o. twice
daily from 200 mg p.o. twice daily. This medication adjustment greatly improved the patient's tremors and over the course of 2 days resulted in the cessation of tremors. EEG conducted on 01/08/2025 showed suggestive of mild diffuse cortical
dysfunction without focal abnormality. Seizures were recorded during the EEG session. Patient has been recommended to receive an outpatient EEG after discharge with his neurologist. Follow-up head/neck CT angiography conducted on 01/08/[address] angiographic evidence for hemodynamically significant stenosis involving the carotid bulbs or proximal internal carotid arteries bilaterally with mild narrowing of the distal M1 portion of the left middle cerebral artery with a diameter reduction
of 25%. Cardiology was consulted due to the patient's recent diagnosis of Takotsubo cardiomyopathy with an ejection fraction of 20 to 25%. The patient was hemodynamically stable with no arrhythmia ECG showed sinus rhythm T wave abnormality less
prominent than it was on his last admission. Cardiology recommended the patient be monitored on telemetry and receive repeat echocardiogram. Repeat echocardiogram conducted on 01/10/2025 showed a normal left ventricular size with low normal
systolic function and no regional wall motion abnormalities. The left ventricular ejection fraction was 50 to 55% by visual estimation with no left ventricular hypertrophy. The patient felt that he was medically stable and wanted to be discharged.
Cardiology believe the patient is medically stable for discharge and recommended that he be discharged on Farxiga, lisinopril, continue aspirin and statin. The patient should have a Lamictal level conducted in the outpatient setting with his
neurologist.
The patient has reached maximal benefit from this hospital admission and the patient is appropriate for discharge at the present time. There are no barriers that would impede the patient from being discharged from the hospital at the present time.
The patient should follow-up with their primary care provider within 1 week following discharge.
Important imaging findings :
-Head CT conducted on 01/07/2025:
There is no evidence of intracranial mass lesion or mass effect with no midline shift.
There is no evidence of acute intracranial hemorrhage. There is no evidence for epidural or subdural hematoma.
Mild to moderate atrophy, slightly greater involving the frontal lobes, but stable from previous examination.
There is no CT evidence for a focal area of acute to subacute infarction.
There is no evidence for calvarial fracture.
Minimal patchy mucosal thickening of the ethmoid sinuses. The rest of the visualized paranasal sinuses appear clear. The mastoid air cells appear clear.
-Brain MRI conducted on 01/08/2025:
There are multiple small foci of low T2 gradient echo and low susceptibility signal in the tegmentum of the lilibeth, right middle cerebellar peduncle, and right side of the medulla (axial susceptibility image #[id number], series #[id number]) which appears more
conspicuous than on the prior MRI examinations and is most suggestive of small foci of hemosiderin deposition from chronic intraparenchymal hemorrhage. There is no MRI evidence for surrounding vasogenic or cytotoxic edema.
There is moderate bilateral frontal and parietal lobe volume loss. There is mild volume loss in the temporal lobes and occipital lobes. There is mild to moderate cerebellar volume loss. The ventricles are midline without evidence for obstructive
hydrocephalus. There is no midline shift. The right cerebellar tonsil extends inferiorly into the right side of the foramen magnum causing mild right posterolateral compression on the medulla which appears chronic and unchanged. There are dilated
perivascular spaces in the deep hoang and white matter bilaterally which appear unchanged.
There is no MRI evidence for restricted diffusion to suggest acute infarction. There is a 4.5 mm low T1 and high T2/FLAIR signal intensity lesion in the subcortical white matter of the anterior left frontal lobe which is increased in size since
07/16/2021.
The right intracranial vertebral arteries very tortuous completely crossing midline prior to formation of the basilar artery. The major arterial vascular flow voids at the base of the brain appear present.
The orbits appear normal. The mid nasal septum is moderately deviated to the left. There is mild mucosal thickening throughout the ethmoid air cells. There is moderate mucosal thickening in the left inferior and middle nasal turbinates. There is
minimal fluid in the right mastoid air cells. The left mastoid air cells are clear.
There are severe degenerative changes of the atlantodens articulation. There is moderate to severe thickening of the transverse ligament posterior to the dens. There is severe discogenic degenerative disease at C3/C4, C4/C5, C5/C6, and C6/C7 with
severe loss of intervertebral disc space height and multilevel disc-osteophyte complexes. There is mild ventral spinal cord compression and at C2/C3, C3/C4, C4/C5, and C5/C6. There is severe left-sided facet joint arthrosis at C2/C3, C3/C4, and
C4/C5. There is severe right-sided facet joint arthrosis at C5/C6.
-Head/neck CT angiography conducted on 01/08/2025:
Initial unenhanced CT images of the head. Intravenous contrast-enhanced CT angiography of the head and neck is performed, and images obtained from the upper chest throughout the head. Source axial images are reviewed as well as 3-D volume and
multiplanar reconstructions.
On unenhanced CT of the head, there is no evidence of intracranial mass lesion or mass effect with no midline shift. There is no evidence for acute intracranial hemorrhage.
There is no CT evidence for a focal area of infarction.
Mild to moderate atrophy in this 79-year-old patient. The callosal angle appears normal, and findings are not considered suggestive of normal pressure hydrocephalus.
No abnormal extra-axial collection is seen.
Mild patchy mucosal thickening of the ethmoid sinuses. The rest of the visualized paranasal sinuses appear clear. The mastoid air cells appear clear.
On CT angiography, mild to moderate calcification of the visualized aortic arch with no significant dilation.
There is no significant narrowing involving the origins of the great vessels from the thoracic aorta.
Tortuosity of the proximal aspect of the right common carotid artery with no focal narrowing. There is calcification involving the right carotid bulb and proximal right ICA, with narrowing in the range of 25% diameter reduction, not representing a
hemodynamically significant stenosis. There is medial deviation of the proximal right ICA into the right posterolateral wall the pharynx, but no significant narrowing of the cervical portion of the right ICA.
Mild calcific atherosclerotic disease of the left common carotid artery with no significant narrowing. Moderate calcification involving the left carotid bulb and proximal left ICA, with narrowing in the range of 25% diameter reduction, with no
evidence for hemodynamically significant stenosis. There is medial deviation of the proximal left ICA, extending into the left posterior paramedian wall of the pharynx. No significant narrowing of the cervical portion of the left ICA.
There is no significant narrowing involving the petrous portion of the internal carotid artery. Mild calcification of the cavernous internal carotid arteries bilaterally, with no findings to suggest a greater than 50% diameter reduction. No
significant narrowing of the supraclinoid portions of the internal carotid arteries bilaterally.
Mild narrowing of distal M1 portion of the left middle cerebral artery, with reduction in the range of 25% reduction. No significant narrowing of the right middle cerebral artery.
No significant narrowing involving the anterior cerebral arteries bilaterally.
Vertebral arteries originate from the subclavian arteries bilaterally. The vertebral arteries show no evidence for significant narrowing. Tortuosity of the superior vertebral arteries, with the right vertebral artery extending to the left of
midline. There is no significant narrowing of the basilar artery.
No significant narrowing identified involving the posterior cerebral arteries.
There is no CT angiographic evidence for intracranial aneurysm.
No evidence for dominant nodule from the thyroid gland. Changes of degenerative disc disease in the cervical spine, greatest from C3-4 through C6-7. Enlargement and calcification of the postdentate transverse ligament.
Automatic exposure control radiation dose reduction technology was utilized.
Procedure findings :
-EEG conducted on 01/08/2025:
Mildly abnormal EEG for age due to diffuse bihemispheric slowing
CLINICAL CORRELATION:
This study was suggestive of mild diffuse cortical dysfunction without focal abnormality. No seizures were recorded.
Clinical correlation is advised.
Discharge Plan
-
Patient Disposition: Home (Routine Discharge)
Discharge Diagnosis/Procedures: Ataxia and tremors
Condition: Good
Diet: Low Cholesterol and Restrict fluids to 48 oz
Activity: As tolerated
Driving Restrictions: As prior to admission
Bathing Restrictions: None
Specialty Instructions: Weigh Daily- Call MD for wt gain/loss 3 lbs overnight/5 lbs in 1 week
Referrals:
Karlee Tenorio MD [Family Provider] - in less than 1 week
Additional Discharge Medication Instructions: Follow-up with neurology 1 to 2 weeks following discharge and check Lamictal levels
Prescriptions:
Continued
sertraline 100 MG tablet
100 mg PO DAILY
levothyroxine 25 MCG tablet
25 mcg PO DAILY
cholecalciferol (vitamin D3) [Vitamin D3] 1,000 UNIT capsule
1,000 unit PO DAILY
lamotrigine [Lamictal] 200 mg Tablet
200 mg PO BID
vitamin E 268 mg (400 unit) Capsule
268 mg PO DAILY
therapeutic multivitamin Tablet
1 tab PO DAILY
diphenhydramine HCl [Sleep Aid (diphenhydramine)] 25 mg Tablet
25 mg PO HS
lansoprazole 15 mg Capsule,Delayed Release(Dr/Ec)
15 mg PO DAILY
ezetimibe [Zetia] 10 mg Tablet
10 mg PO QPM
memantine 10 mg Tablet
10 mg PO BID
pregabalin [Lyrica] 100 mg Capsule
100 mg PO TID
aspirin 81 mg Tablet,Chewable
81 mg PO DAILY Qty: 30 0RF
rosuvastatin 20 mg Tablet
20 mg PO QPM Qty: 30 0RF
lisinopril 10 mg Tablet
20 mg PO DAILY
sertraline 50 mg Tablet
50 mg PO NOON
dapagliflozin propanediol [Farxiga] 10 mg Tablet
10 mg PO DAILY
furosemide 20 mg tablet
20 mg PO DAILYPRN PRN (Reason: Weight gain)
albuterol sulfate 90 mcg/actuation HFA aerosol inhaler
2 puff inhalation R Q6HPRN PRN (Reason: shortness of breath or wheezing)
Discontinued
hydrocodone-acetaminophen 10-325 mg tablet
1 tab PO TIDPRN PRN (Reason: severe Pain)
amlodipine 5 mg Tablet
5 mg PO QPM
Discharge Orders:
Discharge Patient (As Directed); Ordered 01/10/25
Ordered By: Harmeet Shelby
Discharge Date and Time
Discharge Date/Time: 01/10/25 15:27
Print Language: TURKISH
== END 2025-01-10 15:27 | disposition home or self-care (01) | DRG 92 ==
LOC: 3 WEST ACU 23:31
PROVIDERS: ADMITTING PHYSICIAN Internal Medicine; ATTENDING PHYSICIAN Internal Medicine; CONSULT PHYSICIAN Internal Medicine Cardiovascular Disease; CONSULT PHYSICIAN Psychiatry & Neurology Neurology; EMERGENCY PHYSICIAN Emergency Medicine; FAMILY PHYSICIAN Family Medicine
DX: G25.1 Drug-induced tremor (principal); F01.53 Vascular dementia, unspecified severity, with mood disturbance; I50.22 Chronic systolic (congestive) heart failure; G40.109 Localization-related (focal) (partial) symptomatic epilepsy and epileptic syndromes with simple partial seizures, not intractable, without status epilepticus; J44.89 Other specified chronic obstructive pulmonary disease; G60.0 Hereditary motor and sensory neuropathy; K21.9 Gastro-esophageal reflux disease without esophagitis; E03.9 Hypothyroidism, unspecified; I11.0 Hypertensive heart disease with heart failure; I25.10 Atherosclerotic heart disease of native coronary artery without angina pectoris; F32.9 Major depressive disorder, single episode, unspecified; R27.0 Ataxia, unspecified; T42.6X5A Adverse effect of other antiepileptic and sedative-hypnotic drugs, initial encounter; Z66 Do not resuscitate; Z79.891 Long term (current) use of opiate analgesic; Z88.0 Allergy status to penicillin; Z87.891 Personal history of nicotine dependence; Z87.828 Personal history of other (healed) physical injury and trauma; Z79.899 Other long term (current) drug therapy; Z79.890 Hormone replacement therapy; Z79.82 Long term (current) use of aspirin; Z79.84 Long term (current) use of oral hypoglycemic drugs
CPT/HCPCS: 93308; 70450; 70496; 70498; 70551; 80048; 80053; 81003; 81015; 82140; 82607; 83735; 84100; 84443; 85025; 85027; 87502; 87811; 93005; 93321; 93325; 95816; 97116; 97530; 99285; Q9967

== ENCOUNTER → 2025-03-25 14:24 | Outpatient (REF) | payer OTHER, SELFPAY | LOC: RCS 14:24 | PROVIDERS: ATTENDING PHYSICIAN Nurse Practitioner; FAMILY PHYSICIAN Family Medicine | DX: I51.81 Takotsubo syndrome (principal); I50.20 Unspecified systolic (congestive) heart failure | CPT/HCPCS: 93308; 93321; 93325 ==

== ENCOUNTER → 2025-07-13 07:13 | Outpatient (REF) | payer OTHER, SELFPAY ==
[2025-07-13 08:12] LABS: Urine Character Clear (Clear)
[2025-07-13 08:18] LABS: Hematocrit 36.3 % (39.0-52.0); Hemoglobin 12.3 g/dL (13.0-18.0); Mean Corp Hgb Conc. 33.9 g/dL (33.0-37.0); Mean Corpuscular Volume 90.8 fL (80.0-94.0); Nucleated Red Blood Cells % 0 % (-); Platelet Count 176 10^3/uL (130-400); Red Cell Dist. Width 13.1 % (11.5-14.5)
[2025-07-13 09:02] LABS: Urine Red Blood Cell 0-2 /HPF (0-2); Urine Squamous Cell 0-2 /LPF (Few); Urine White Cell 0-2 /HPF (0-5)
[2025-07-13 09:45] LABS: ALT (SGPT) 11 U/L (0-50); AST (SGOT) 21 U/L (17-59); Albumin 4.0 g/dl (3.5-5.0); Alkaline Phosphatase 56 U/L (38-126); Blood Urea Nitrogen 14 mg/dl (9-20); Calcium 9.1 mg/dl (8.4-10.2); Carbon Dioxide 28 mmol/L (22-30); Chloride 106 mmol/L (98-107); Glucose 78 mg/dl (70-99); HDL Cholesterol 39 mg/dl; LDL Cholesterol, Calculated 112 mg/dl; Potassium 3.8 mmol/L (3.5-5.1); Sodium 141 mmol/L (135-145); Total Protein 5.9 g/dl (6.3-8.2); Very Low Density Lipoprotein 27 mg/dl (0-30); eGFR > 60.00
[2025-07-13 10:16] LABS: TSH 1.86 uIU/ml (0.47-4.68)
== END ==
LOC: REG 07:13
PROVIDERS: ATTENDING PHYSICIAN Family Medicine
DX: I10 Essential (primary) hypertension (principal); G40.209 Localization-related (focal) (partial) symptomatic epilepsy and epileptic syndromes with complex partial seizures, not intractable, without status epilepticus; Z12.5 Encounter for screening for malignant neoplasm of prostate; E03.9 Hypothyroidism, unspecified; K21.9 Gastro-esophageal reflux disease without esophagitis; I25.10 Atherosclerotic heart disease of native coronary artery without angina pectoris
CPT/HCPCS: 36415; 80053; 80061; 80175; 81003; 81015; 84153; 84154; 84439; 84443; 85025